=== PATIENT | male | born 1960 | race Two or more races ===

== ENCOUNTER 2017-04-09 04:08 | Emergency (ER) | payer MEDICARE, MEDICAID ==
[~2017-04-09] VITALS: Ht 167.6 cm; Wt 54.9 kg
[~2017-04-09 04:08] MED LIST: ALBUTEROL2.5 MG/3 M INH; AMBIEN; AMBIEN10 MG PO; AMBIEN5 MG; AMBIEN5 MG ORAL; AMBIEN5 MG PO; AVELOX400 MG ORAL; AZITHROMYCIN250 MG ORAL; BACTRIM-DS1 EA ORAL; CEPHALEXIN500 MG PO; CLARITIN10 MG; CLINDAMYCIN PHO30 GM TP; COLACE100 MG ORAL; DULCOLAX10 MG RC; HYDROCORTISONE28 G5 TP; LEVAQUIN500 MG PO; LORATADINE; LORATADINE10 M1 PO; NORCO 5-325 TA1 EACH ORAL; OMEPRAZOLE; PRILOSEC20 MG PO; PROAIR HFA8.5 GM INH; PROMETHAZINE-C118 M1 ORAL; PROTONIX40 MG ORAL; QUETIAPINE FUMA25 MG ORAL; RENAGEL; RENVELA800 MG PO; SENSIPAR; SENSIPAR30 MG ORAL; SENSIPAR30 MG PO; SENSIPAR60 MG; SEROQUEL; SEROQUEL100 MG PO; SUCRALFATE; SUCRALFATE1 GM; SUCRALFATE1 GM PO; TYLENOL650 MG/20. ORAL; UNOBMED; VITAMINS; ZANTAC150 MG ORAL; ZITHROMAX250 MG ORAL; ZOLPIDEM; ZYRTEC10 MG; [UNRECOGNIZED DRUG - OTHER] ORAL
[2017-04-09] MEDS ORDERED: Lidocaine 2% Visc 15ml soln ORAL ONE (04:15)
[2017-04-09] MEDS ORDERED: Famotidine 20 MG/ 2ML VIAL IVP ONE (04:15)
[2017-04-09] MEDS ORDERED: Dicyclomine HCl 10mg/5ml oral soln ORAL ONE (04:15)
[2017-04-09] MEDS ORDERED: Mylanta II UD 30ml ORAL ONE (04:15)
--- NOTE | 2017-04-09 04:18 | Emergency Room Report ---
History of Present Illness General Source: Patient Present Illness HPI 56 yo male with past medical history of end-stage renal disease, on dialysis Friday and Friday, last dialysis was completed yesterday, history of gastritis, hypertension p/w abdominal pain one day. Patient states pain started after eating, localized to gastric, radiates up towards chest with acidic taste in mouth, burning in nature, intermittent. No relieving or exacerbating factors. Patient states that he has had this pain before, and it feels like his gastritis pain Pt reports n/v, to episodes of nbnb vomiting, denies diarrhea Denies fever, chills. No hx of abdominal surgeries. Last endoscopy/colonoscopy was several years ago Last stress test was one year ago which was negative Allergies: Coded Allergies: PEANUT (Verified Allergy, Intermediate, Rash, 06/22/13) AVOCADO (Unverified Allergy, Unknown, 10/06/14) Dairy (Verified Allergy, Unknown, Rash, 12/15/13) Patient History Past Medical History: see triage record Past Surgical History: none Pertinent Family History: none Reviewed Nursing Documentation: PMH: Agreed, PSxH: Agreed Nursing Documentation-PMH Hx Cardiac Problems: No Hx Hypertension: Yes Hx Pacemaker: No Hx Asthma: Yes Hx COPD: Yes Hx Diabetes: No Hx Cancer: No Hx Gastrointestinal Problems: Yes - Gastritis Hx Dialysis: Yes Hx Neurological Problems: No Hx Cerebrovascular Accident: No Hx Seizures: No Hx Weakness: Yes Hx Fatigue: Yes Review of Systems All Other Systems: negative except mentioned in HPI Physical Exam Sp02 EP Interpretation: reviewed, normal General Appearance: normal inspection, well appearing, no apparent distress, alert, GCS 15, non-toxic Head: normocephalic, atraumatic Eyes: bilateral eye normal inspection, bilateral eye PERRL, bilateral eye EOMI ENT: normal ENT inspection, normal pharynx, normal voice, moist mucus membranes Neck: normal inspection, full range of motion, supple Respiratory: normal inspection, lungs clear, normal breath sounds, no respiratory distress, no retraction, no wheezing, speaking full sentences, chest symmetrical Cardiovascular #1: normal inspection, regular rate, rhythm, no edema, normal capillary refill Cardiovascular #2: 2+ radial (R), 2+ radial (L) Gastrointestinal: soft, non-distended, no guarding, other - Mild epigastric tenderness, no right upper quadrant tenderness, all other areas are nontender Genitourinary: no CVA tenderness Musculoskeletal: normal inspection, back normal, normal range of motion, non- tender Neurologic: normal inspection, alert, oriented x3, responsive, motor strength/ tone normal, sensory intact, normal gait, speech normal Psychiatric: normal inspection, judgement/insight normal, memory normal Skin: normal inspection, normal color, no rash, warm/dry, well hydrated, normal turgor Medical Decision Making Diagnostic Impression: Primary Impression: Abdominal pain Qualified Codes: R10.13 - Epigastric pain ER Course 56-year-old male with upper abdominal pain , history of gastritis Differential Diagnosis: Gastritis, gastroenteritis, cholecystitis, appendicitis, diverticulitis, SBO, mesenteric ischemia, cardiac, UTI/pyelo At this time abdomen is soft nontender, not likely to have acute intra- abdominal surgical pathology, will hold CT for now. Plan: Basic labs, ua, ekg Pepcid, maalox, pain control ER course: Patient has remained stable during ED stay. Pain improved. Repeat abdominal exam is nontender. Tolerating PO Disposition: Patient is to be discharged to home. Patient is instructed to follow up with their primary care doctor within 5 days. Patient instructed to follow up with a lot porter in 1 week Strict return precautions discussed with patient such as fever, chills, worsening/severe abdominal pain, nausea, vomiting, black or bloody stools, which may indicate severe illness. Patient verbalizes understanding and agrees with plan. Please note that this Emergency Department Report was dictated using [employer] surgery assistant technology software, occasionally this can lead to erroneous entry secondary to interpretation by the dictation equipment Laboratory Tests Test 04/09/17 04:15 White Blood Count 4.8 K/UL (4.8-10.8) Red Blood Count 3.80 M/UL (4.70-6.10) L Hemoglobin 12.0 G/DL (14.2-18.0) L Hematocrit 35.5 % (42.0-52.0) L Mean Corpuscular Volume 93 FL (80-99) Mean Corpuscular Hemoglobin 31.5 PG (27.0-31.0) H Mean Corpuscular Hemoglobin Concent 33.8 G/DL (32.0-36.0) Red Cell Distribution Width 11.1 % (11.6-14.8) L Platelet Count 158 K/UL (150-450) Mean Platelet Volume 5.3 FL (6.5-10.1) L Neutrophils (%) (Auto) 66.8 % (45.0-75.0) Lymphocytes (%) (Auto) 18.9 % (20.0-45.0) L Monocytes (%) (Auto) 8.6 % (1.0-10.0) Eosinophils (%) (Auto) 4.3 % (0.0-3.0) H Basophils (%) (Auto) 1.3 % (0.0-2.0) Sodium Level 137 mEQ/L (135-145) Potassium Level 4.7 mEQ/L (3.4-4.9) Chloride Level 95 mEQ/L (98-107) L Carbon Dioxide Level 26 mEQ/L (20-30) Anion Gap 16 (5-15) H Blood Urea Nitrogen 25 mg/dL (7-23) H Creatinine 7.4 mg/dL (0.7-1.2) H Estimate Glomerular Filtration Rate 7.7 mL/min (>60) Glucose Level 103 mg/dL (74-106) Calcium Level 9.7 mg/dL (8.6-10.2) Total Bilirubin 0.3 mg/dL (0.0-1.2) Aspartate Amino Transferase (AST) 26 U/L (5-40) Alanine Aminotransferase (ALT) 25 U/L (3-41) Alkaline Phosphatase 75 U/L (40-129) Troponin I < 0.30 ng/mL (<=0.30) Total Protein 8.0 g/dL (6.6-8.7) Albumin 4.3 g/dL (3.5-5.2) Globulin 3.7 g/dL Albumin/Globulin Ratio 1.1 (1.0-2.7) Lipase 112 U/L (< 60) H EKG Diagnostic Results Rate: normal Rhythm: NSR ST Segments: other - U wave ASA given to the pt in ED: No Rhythm Strip Diag. Results EP Interpretation: yes Rate: 60 Rhythm: NSR, no PVC's, no ectopy Disposition: HOME, SELF-CARE Condition: Improved Scripts Famotidine (PEPCID) 20 Mg Tablet 20 MG ORAL BEDTIME for 14 Days, #14 TAB 0 Refills Prov: Shannan Vieira M.D. 04/09/17 Patient Instructions: Abdominal Pain, Adult, Gastritis, Adult Shannan Vieira M.D. Apr 09, 2017 04:18
[2017-04-09 04:25] VITALS: BP 157/79
[2017-04-09 04:32] LABS: BASOPHILS % (AUTO) 1.3 % (0.0-2.0); EOSINOPHILS % (AUTO) 4.3 % (0.0-3.0); LYMPHOCYTES % (AUTO) 18.9 % (20.0-45.0); MEAN CORPUSCULAR HEMOGLOBIN 31.5 PG (27.0-31.0); MEAN CORPUSCULAR HGB CONC 33.8 G/DL (32.0-36.0); MEAN CORPUSCULAR VOLUME 93 FL (80-99); MEAN PLATELET VOLUME 5.3 FL (6.5-10.1); MONOCYTES % (AUTO) 8.6 % (1.0-10.0); NEUTROPHILS % (AUTO) 66.8 % (45.0-75.0); PLATELET COUNT 158 K/UL (150-450); RED CELL DISTRIBUTION WIDTH 11.1 % (11.6-14.8); WHITE BLOOD COUNT 4.8 K/UL (4.8-10.8)
[2017-04-09 04:43] LABS: ALBUMIN/GLOBULIN RATIO 1.1 (1.0-2.7); CALCIUM 9.7 mg/dL (8.6-10.2); CREATININE 7.4 mg/dL (0.7-1.2); GLOMERULAR FILTRATION RATE 7.7 mL/min (>60); POTASSIUM 4.7 mEQ/L (3.4-4.9)
[2017-04-09] MEDS ORDERED: Acetaminophen 500mg (ES) tab ORAL ONE (05:00)
[2017-04-09 05:03] LABS: TROPONIN I < 0.30 ng/mL (<=0.30)
[2017-04-09] MEDS ORDERED: PEPCID20 MG ORAL (05:15)
[2017-04-09 05:18] VITALS: BP 138/78
[2017-04-09 05:33] VITALS: BP 138/78
--- NOTE | 2017-04-09 16:27 | Cardiology Report ---
APPROVED REPORT EKG Measurement Heart [id number] Normal sinus rhythm Nonspecific ST abnormality Abnormal ECG
== END 2017-04-09 05:30 | disposition home or self-care (01) ==
LOC: EDBD 04:08 → EMR 04:19
DX: R10.13 Epigastric pain (principal); I12.0 Hypertensive chronic kidney disease with stage 5 chronic kidney disease or end stage renal disease; N18.6 End stage renal disease; Z99.2 Dependence on renal dialysis; Z91.010 Allergy to peanuts; Z91.011 Allergy to milk products; Z91.018 Allergy to other foods; J44.9 Chronic obstructive pulmonary disease, unspecified; R53.1 Weakness
CPT/HCPCS: 36415; 80053; 83690; 84484; 85025; 93005; 96374; 99284; S0028

== ENCOUNTER 2017-06-03 20:49 | Emergency (ER) | payer MEDICARE, MEDICAID ==
[~2017-06-03] VITALS: Ht 167.6 cm; Wt 59.0 kg
[~2017-06-03 20:49] MED LIST changes: +PEPCID20 MG ORAL
[2017-06-03 21:00] VITALS: BP 125/72
[2017-06-03] MEDS ORDERED: Acetaminophen 500mg (ES) tab ORAL ONE (21:00)
--- NOTE | 2017-06-03 21:02 | Emergency Room Report ---
History of Present Illness General Chief Complaint: Abdominal Pain Source: Patient Present Illness HPI Patient 56-year-old male presented after increased abdominal pain as well as back and neck pain. The patient prior history of end-stage renal disease and was last dialyzed today. Patient is followed by Dr. Matt Chaney. The patient was brought in by EMS after increased pain. Patient reported having some pain to his low abdomen. The patient denied vomiting. He reported pain to the upper back as well as to the trunk. Patient denies prior history of diabetes. Reportedly patient prior history of pancreatitis. Allergies: Coded Allergies: PEANUT (Verified Allergy, Intermediate, Rash, 06/22/13) AVOCADO (Unverified Allergy, Unknown, 10/06/14) Dairy (Verified Allergy, Unknown, Rash, 12/15/13) Patient History Past Medical History: see triage record, dialysis Reviewed Nursing Documentation: PMH: Agreed, PSxH: Agreed Nursing Documentation-PMH Hx Cardiac Problems: No Hx Hypertension: Yes Hx Pacemaker: No Hx Asthma: Yes Hx COPD: Yes Hx Diabetes: No Hx Cancer: No Hx Gastrointestinal Problems: Yes - Gastritis Hx Dialysis: Yes - ESRD Hx Neurological Problems: No Hx Cerebrovascular Accident: No Hx Seizures: No Hx Weakness: Yes Hx Fatigue: Yes Review of Systems All Other Systems: negative except mentioned in HPI Physical Exam Vital Signs Date Time Temp Pulse Resp B/P (MAP) Pulse Ox O2 Delivery O2 Flow Rate FiO2 06/03/17 20:44 97.5 98 16 126/70 100 Room Air Sp02 EP Interpretation: reviewed, normal General Appearance: normal inspection, well appearing, no apparent distress, alert, GCS 15 Head: atraumatic ENT: normal ENT inspection, hearing grossly normal, normal voice Neck: normal inspection, full range of motion, supple, no bony tend Respiratory: normal inspection, lungs clear, normal breath sounds, no respiratory distress, no retraction, no wheezing Cardiovascular #1: regular rate, rhythm, no edema Gastrointestinal: normal inspection, normal bowel sounds, non tender, soft, no guarding, no hernia Genitourinary: no CVA tenderness Musculoskeletal: normal inspection, back normal, normal range of motion Neurologic: normal inspection, alert, oriented x3, responsive, system safety engineer III-XII nml as tested, speech normal Psychiatric: normal inspection, judgement/insight normal, mood/affect normal Skin: normal inspection, normal color, no rash Medical Decision Making Diagnostic Impression: Primary Impression: Pancreatitis Additional Impression: ESRD on dialysis ER Course Patient presented for abdominal pain. Differential diagnoses included ischemic bowel, appendicitis, perforated viscus, abdominal aortic aneurysm, inferior myocardial infarction, viral gastroenteritis Because of complexity of patient's case laboratory testing and imaging studies were ordered. I laboratory testing and no for elevated lipase consistent with pancreatitis. Patient was noted to have prior history of end-stage renal disease. Chest x- ray one view interpreted by me showed bilateral lung scarring without definite infiltrate normal cardiac size. The patient given IV pain medications. EKG interpreted by me showed normal sinus rhythm at a rate of [address] or T wave changes. Patient is advised followup with his primary care physician in one to 2 days for reexamination.The patient is advised to follow up with primary care doctor in 1 -2 days. Patient is advised to return if any worsening condition or if any changes in status that are concerning. Labs Test 06/03/17 21:10 White Blood Count 5.4 K/UL (4.8-10.8) Red Blood Count 4.18 M/UL (4.70-6.10) Hemoglobin 12.6 G/DL (14.2-18.0) Hematocrit 39.4 % (42.0-52.0) Mean Corpuscular Volume 94 FL (80-99) Mean Corpuscular Hemoglobin 30.2 PG (27.0-31.0) Mean Corpuscular Hemoglobin Concent 32.0 G/DL (32.0-36.0) Red Cell Distribution Width 11.1 % (11.6-14.8) Platelet Count 177 K/UL (150-450) Mean Platelet Volume 5.1 FL (6.5-10.1) Neutrophils (%) (Auto) 71.5 % (45.0-75.0) Lymphocytes (%) (Auto) 15.9 % (20.0-45.0) Monocytes (%) (Auto) 6.7 % (1.0-10.0) Eosinophils (%) (Auto) 4.9 % (0.0-3.0) Basophils (%) (Auto) 1.1 % (0.0-2.0) Prothrombin Time 9.9 SEC (9.30-11.50) Prothromb Time International Ratio 0.9 (0.9-1.1) Activated Partial Thromboplast Time 25 SEC (23-33) Sodium Level 137 MMOL/L (136-145) Potassium Level 3.9 MMOL/L (3.5-5.1) Chloride Level 98 MMOL/L (98-107) Carbon Dioxide Level 29 MMOL/L (21-32) Anion Gap 10 mmol/L (5-15) Blood Urea Nitrogen 22 mg/dL (7-18) Creatinine 7.1 MG/DL (0.55-1.30) Estimat Glomerular Filtration Rate 8.1 mL/min (>60) Glucose Level 126 MG/DL (74-106) Calcium Level 9.5 MG/DL (8.5-10.1) Total Bilirubin 0.4 MG/DL (0.2-1.0) Aspartate Amino Transf (AST/SGOT) 22 U/L (15-37) Alanine Aminotransferase (ALT/SGPT) 33 U/L (12-78) Alkaline Phosphatase 76 U/L (46-116) Total Creatine Kinase 39 U/L (26-308) Creatine Kinase MB 1.3 NG/ML (0.0-3.6) Creatine Kinase MB Relative Index 3.3 Troponin I 0.003 ng/mL (0.000-0.056) Total Protein 8.4 G/DL (6.4-8.2) Albumin 4.1 G/DL (3.4-5.0) Globulin 4.3 g/dL Albumin/Globulin Ratio 1.0 (1.0-2.7) Lipase 534 U/L (73-393) Last Vital Signs Date Time Temp Pulse Resp B/P (MAP) Pulse Ox O2 Delivery O2 Flow Rate FiO2 06/03/17 20:44 97.5 98 16 126/70 100 Room Air Status: improved Disposition: HOME, SELF-CARE Condition: Stable Scripts Docusate Sodium* (COLACE*) 100 Mg Capsule 100 MG ORAL TWICE A DAY, #20 CAP Prov: Ignacio Marino 06/03/17 Hydrocodone Bit/Acetaminophen 5-325* (NORCO 5-325*) 1 Each Tablet 1 TAB ORAL Q6H Y for For Pain, #20 TAB 0 Refills Prov: Ignacio Marino 06/03/17 Ignacio Marino Jun 03, 2017 21:02
[2017-06-03 21:26] LABS: BASOPHILS % (AUTO) 1.1 % (0.0-2.0); EOSINOPHILS % (AUTO) 4.9 % (0.0-3.0); LYMPHOCYTES % (AUTO) 15.9 % (20.0-45.0); MEAN CORPUSCULAR HEMOGLOBIN 30.2 PG (27.0-31.0); MEAN CORPUSCULAR VOLUME 94 FL (80-99); MEAN PLATELET VOLUME 5.1 FL (6.5-10.1); MONOCYTES % (AUTO) 6.7 % (1.0-10.0); NEUTROPHILS % (AUTO) 71.5 % (45.0-75.0); PLATELET COUNT 177 K/UL (150-450); RED BLOOD COUNT 4.18 M/UL (4.70-6.10); RED CELL DISTRIBUTION WIDTH 11.1 % (11.6-14.8); WHITE BLOOD COUNT 5.4 K/UL (4.8-10.8)
[2017-06-03 21:36] LABS: INR 0.9 (0.9-1.1); PROTHROMBIN TIME 9.9 SEC (9.30-11.50)
[2017-06-03 21:47] LABS: ANION GAP 10 mmol/L (5-15); CALCIUM 9.5 MG/DL (8.5-10.1); CARBON DIOXIDE 29 MMOL/L (21-32); CHLORIDE 98 MMOL/L (98-107); CREATININE 7.1 MG/DL (0.55-1.30); GLOMERULAR FILTRATION RATE 8.1 mL/min (>60); POTASSIUM 3.9 MMOL/L (3.5-5.1); SODIUM 137 MMOL/L (136-145)
[2017-06-03 21:51] LABS: ALANINE AMINOTRANSFERASE 33 U/L (12-78); ASPARTATE AMINO TRANSFERASE 22 U/L (15-37); CKMB 1.3 NG/ML (0.0-3.6); LIPASE 534 U/L (73-393); TOTAL PROTEIN 8.4 G/DL (6.4-8.2)
[2017-06-03] MEDS ORDERED: Morphine Sulfate 4mg/ml Inj IVP ONE (22:00)
[2017-06-03 23:14] VITALS: BP 113/75
[2017-06-03] MEDS ORDERED: NORCO 5-325 TA1 EACH ORAL (23:16)
[2017-06-03] MEDS ORDERED: COLACE100 MG ORAL (23:16)
[2017-06-03 23:24] VITALS: BP 113/75
--- NOTE | 2017-06-04 11:42 | Diagnostic Imaging Report ---
Indication: PAIN Technique: One view of the chest Comparison: 01/21/2014 Findings: Bilateral basilar scarring is again demonstrated. Generalized mild interstitial prominence appears stable, likely chronic. No focal airspace consolidation. No effusions. Normal heart size. Impression: Bilateral chronic appearing parenchymal disease, stable since 2013. No definite acute process This agrees with the preliminary interpretation provided by the emergency room physician
--- NOTE | 2017-06-04 15:03 | Diagnostic Imaging Report ---
INDICATION: PAIN TECHNIQUE: No oral contrast, per emergency department physician request. No IV contrast, reason not stated. Spiral acquisitions obtained through the chest, abdomen, and pelvis Multiplanar reconstructions were generated. Total dose length product 952 mGycm. CTDIvol(s) 13.9 mGy. Radiation dose was minimized using automated exposure control COMPARISON: 10/25/[address] No comparison chest CT scans FINDINGS Chest: Interstitial septal thickening is demonstrated, with scattered areas in the upper lobes and more generalized in the lower lobes. Reticular, nodular, linear opacities at both lung bases likely represent areas of scarring. There is some associated calcification. Vague areas of groundglass opacity are seen scattered in the upper and lower lobes bilaterally. No focal airspace consolidation. No effusions. No definite congestion. No masses or nodules. Findings at the lung bases are similar to those seen on the visualized lung bases of the 2011 exam, but appears slightly more extensive currently. The heart size is normal. No pericardial effusion. No mediastinal or hilar mass or adenopathy. A venous stent is seen axillary vein. No axillary or chest wall mass or adenopathy. The thyroid is unremarkable. Abdomen pelvis: The appendix is normal. There is colonic diverticulosis. No evidence of diverticulitis. No small bowel distention. No free or loculated intraperitoneal air or fluid is evident. Lack of IV contrast limits assessment of the solid organs. The liver is grossly unremarkable. The gallbladder again demonstrates gallstones. No biliary ductal dilatation. The pancreas, spleen, adrenals are unremarkable as previously, kidneys are atrophic. However, there are currently replaced by innumerable cysts. A hyperdense cyst is seen in the interpolar region on the left. This measures 88 Hounsfield unit attenuation. Calcifications are seen in the kidneys bilaterally. These are more likely dystrophic parenchymal calcifications than calyceal. No hydronephrosis. No pelvic mass or adenopathy. No retroperitoneal or mesenteric mass or adenopathy There are mild degenerative of the lumbosacral junction, progressive since the 2011 exam. IMPRESSION Chest: Pulmonary mostly interstitial disease, as described. At the lung bases, this is very similar to that visualized at the lung bases on prior abdomen pelvis CT of 2011, although slightly more extensive, and most likely represents chronic interstitial fibrotic changes, otherwise nonspecific as regards etiology. Superimposed acute process impossible to confidently exclude Left axillary venous stent Abdomen pelvis: No acute abnormality Cholelithiasis Diverticulosis Renal atrophy. 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 This was not evident on prior 2011 exam but was described on abdomen ultrasound of 12/23/2013 Bilateral renal calcifications, most likely dystrophic Degenerative spondylosis This agrees with the preliminary interpretation provided overnight by [facility]erad[facility] service. The CT scanner at [facility] is accredited by the [employer] and the scans are performed using protocols designed to limit radiation exposure to as low as reasonably achievable to attain images of sufficient resolution adequate for diagnostic evaluation.
--- NOTE | 2017-06-04 16:24 | Cardiology Report ---
APPROVED REPORT EKG Measurement Heart [id number] Normal sinus rhythm Normal ECG
== END 2017-06-03 23:25 | disposition home or self-care (01) ==
LOC: EDBD 20:49 → EMR 21:25
DX: K85.90 Acute pancreatitis without necrosis or infection, unspecified (principal); I12.0 Hypertensive chronic kidney disease with stage 5 chronic kidney disease or end stage renal disease; N18.6 End stage renal disease; Z99.2 Dependence on renal dialysis; J44.9 Chronic obstructive pulmonary disease, unspecified; Z91.011 Allergy to milk products; Z91.010 Allergy to peanuts; Z91.018 Allergy to other foods; R07.9 Chest pain, unspecified; K80.20 Calculus of gallbladder without cholecystitis without obstruction; K57.90 Diverticulosis of intestine, part unspecified, without perforation or abscess without bleeding; N28.1 Cyst of kidney, acquired; M47.9 Spondylosis, unspecified
CPT/HCPCS: 36415; 71010; 71250; 74176; 80053; 82550; 82553; 83690; 84484; 85025; 85610; 85730; 93005; 96374; 96375; 99284; J2270; S0028

== ENCOUNTER 2017-06-07 20:22 | Emergency (ER) | payer MEDICARE, MEDICAID ==
[~2017-06-07] VITALS: Ht 167.6 cm; Wt 61.2 kg
[2017-06-07 20:40] VITALS: BP 134/87
[2017-06-07] MEDS ORDERED: Morphine Sulfate 2mg/ml Inj IVP ONE (20:45)
--- NOTE | 2017-06-07 21:00 | Emergency Room Report ---
History of Present Illness General Chief Complaint: Pain Source: Patient Present Illness HPI 56-year-old male, walking, presents with nausea, neck pain, and right leg pain for 2 weeks. Patient was here 4 days ago for similar complaints. Labs were concerning for elevated lipase but CT did not show acute appendicitis. Chest x-ray and CT at that time showed chronic parenchymal disease but no acute findings to explain patient's complaints. Patient stated that he spoke to primary care doctor Dr. Chaney, but was unable to make appointment for followup. Patient is also a dialysis patient. He denies fevers, chills, diarrhea, recent travel, sick contacts. I spoke to patient's primary care doctor, Dr. Chaney, who states that patient has a history of possible schizophrenia, severe anxiety, and he has been trying to set patient up with outpatient physical therapy. Dr. Chaney suggested discharged with lidocaine patch and Robaxin. He will follow the patient as an outpatient. Allergies: Coded Allergies: PEANUT (Verified Allergy, Intermediate, Rash, 06/22/13) AVOCADO (Unverified Allergy, Unknown, 10/06/14) Dairy (Verified Allergy, Unknown, Rash, 12/15/13) Patient History Past Medical History: dialysis Past Surgical History: none Pertinent Family History: none Social History: Denies: smoking, alcohol use, drug use Immunizations: UTD Reviewed Nursing Documentation: PMH: Agreed, PSxH: Agreed Nursing Documentation-PMH Hx Cardiac Problems: No Hx Pacemaker: No Hx Asthma: Yes Hx COPD: Yes Hx Diabetes: No Hx Cancer: No Hx Gastrointestinal Problems: Yes - Gastritis Hx Dialysis: Yes - /Th/Sat. Hx Neurological Problems: No Hx Cerebrovascular Accident: No Hx Seizures: No Hx Weakness: Yes Hx Fatigue: Yes Review of Systems All Other Systems: negative except mentioned in HPI Physical Exam Vital Signs Date Time Temp Pulse Resp B/P (MAP) Pulse Ox O2 Delivery O2 Flow Rate FiO2 06/07/17 20:27 98.1 103 18 157/78 96 Room Air Sp02 EP Interpretation: reviewed, normal General Appearance: normal inspection, well appearing, no apparent distress, alert, GCS 15, non-toxic, other - Very anxious appearing Head: normocephalic, atraumatic Eyes: bilateral eye PERRL, bilateral eye EOMI ENT: normal ENT inspection, hearing grossly normal, normal voice Neck: normal inspection, full range of motion, supple, no bony tend Respiratory: normal inspection, lungs clear, normal breath sounds, no respiratory distress, no retraction, no wheezing Cardiovascular #1: regular rate, rhythm, no edema Gastrointestinal: normal inspection, normal bowel sounds, non tender, soft, no guarding, no hernia Genitourinary: no CVA tenderness Musculoskeletal: normal inspection, back normal, normal range of motion, Galdino' s Sign negative, other - SLE + on right side. + ttp right lower back and buttock Neurologic: normal inspection, alert, oriented x3, responsive, quality assurance clerk III-XII nml as tested, speech normal Psychiatric: normal inspection, judgement/insight normal, mood/affect normal Skin: normal inspection, normal color, no rash Medical Decision Making Diagnostic Impression: Primary Impression: Right low back pain Qualified Codes: M54.41 - Lumbago with sciatica, right side; G89.29 - Other chronic pain Additional Impressions: Nausea Right leg pain ER Course 56-year-old male with nausea, neck pain, right leg pain. Vital signs stable. Afebrile. Abdomen nonfocal and serial exam. Workup includes laboratory analysis, pain control, nausea control. Patient's abdomen remains nonfocal and serial abdominal exam. Unlikely acute bacterial or surgical process given normal CAT scan recently. recent CAT scan shows spondylosis and arthritis of the lumbar sacral spine. Right lower back buttock and right leg pain likely sciatica. Patient to followup with Dr. Holloway as an outpatient, I prescribed Robaxin and Lidoderm patch Patient is to be discharged to home. Patient is instructed to follow up with their primary care doctor within 5 days. Strict return precautions discussed with patient such as fever, chills, worsening/severe pain, nausea, vomiting, which may indicate severe illness. Patient verbalizes understanding and agrees with plan. Please note that this Emergency Department Report was dictated using [id number] biochemist technology software, occasionally this can lead to erroneous entry secondary to interpretation by the dictation equipment Last Vital Signs Date Time Temp Pulse Resp B/P (MAP) Pulse Ox O2 Delivery O2 Flow Rate FiO2 06/07/17 20:40 98.1 99 18 134/87 100 Room Air Status: improved Disposition: HOME, SELF-CARE Scripts Lidocaine (Lidoderm) 1 Each Adh..patch 1 PATCH TOPIC DAILY for 7 Days, #14 PATCH 0 Refills Patch(es) may remain in place for up to 12 hours in any 24-hour period. Prov: VALENTINA WONG M.D. 06/07/17 Methocarbamol* (ROBAXIN*) 500 Mg Tablet 500 MG PO TID for 7 Days, #30 TAB 0 Refills Prov: VALENTINA WONG M.D. 06/07/17 VALENTINA WONG M.D. Jun 07, 2017 21:00
[2017-06-07 21:15] LABS: EOSINOPHILS % (AUTO) 2.3 % (0.0-3.0); LYMPHOCYTES % (AUTO) 13.7 % (20.0-45.0); MEAN CORPUSCULAR HEMOGLOBIN 31.2 PG (27.0-31.0); MEAN CORPUSCULAR VOLUME 94 FL (80-99); MEAN PLATELET VOLUME 4.9 FL (6.5-10.1); MONOCYTES % (AUTO) 7.5 % (1.0-10.0); NEUTROPHILS % (AUTO) 75.5 % (45.0-75.0); PLATELET COUNT 150 K/UL (150-450); RED BLOOD COUNT 3.95 M/UL (4.70-6.10); RED CELL DISTRIBUTION WIDTH 10.9 % (11.6-14.8); WHITE BLOOD COUNT 4.6 K/UL (4.8-10.8)
[2017-06-07] MEDS ORDERED: ROBAXIN500 MG PO (21:18)
[2017-06-07] MEDS ORDERED: LIDODERM700 M1 TOPIC (21:18)
[2017-06-07 21:39] LABS: ANION GAP 8 mmol/L (5-15); CALCIUM 9.8 MG/DL (8.5-10.1); CARBON DIOXIDE 32 MMOL/L (21-32); CHLORIDE 98 MMOL/L (98-107); GLOMERULAR FILTRATION RATE 9.8 mL/min (>60); POTASSIUM 3.5 MMOL/L (3.5-5.1); SODIUM 138 MMOL/L (136-145)
[2017-06-07 21:44] LABS: ALANINE AMINOTRANSFERASE 28 U/L (12-78); ALBUMIN/GLOBULIN RATIO 0.9 (1.0-2.7); ASPARTATE AMINO TRANSFERASE 22 U/L (15-37); LIPASE 310 U/L (73-393); TOTAL PROTEIN 8.7 G/DL (6.4-8.2)
[2017-06-07 22:25] VITALS: BP 117/70
[2017-06-07 22:28] VITALS: BP 117/70
== END 2017-06-07 22:28 | disposition home or self-care (01) ==
LOC: EMR 21:16
DX: M54.5 Low back pain (principal); M54.2 Cervicalgia; M79.604 Pain in right leg; Z91.010 Allergy to peanuts; Z91.018 Allergy to other foods; J44.9 Chronic obstructive pulmonary disease, unspecified
CPT/HCPCS: 36415; 80053; 83690; 85025; 96374; 96375; 99284; J2270; J2405

== ENCOUNTER 2017-06-10 20:38 | Inpatient (IN) | payer MEDICARE, MEDICAID ==
[~2017-06-10] VITALS: Ht 170.2 cm; Wt 57.6 kg
[~2017-06-10 20:38] MED LIST changes: +LIDODERM700 M1 TOPIC; +ROBAXIN500 MG PO
[2017-06-10 21:00] VITALS: BP 168/89
--- NOTE | 2017-06-10 21:08 | Emergency Room Report ---
History of Present Illness General Chief Complaint: Chest Pain Source: Patient Present Illness HPI The patient presents with chest pressure. It was worse during dialysis. He felt pressure also in his upper abdomen at that time. His dialysis was afternoon. He got dizzy also during dialysis and afterwards. He did not take any medication for the chest pressure. He rates it as a 5/10 at this time. He had a slight fever during the night last week. He denies dyspnea. The patient is also complaining about pain in his right lower leg radiating to his back. He's been putting creams on it. He was seen here at that time. He was also given pills and is uncertain whether he has been taking the pills for pain and muscle relaxation. He also saw his doctor for the same problem and states he was not examined but given referral for physical therapy. The patient complains of constipation. He makes a small amount of urine in the morning. There's no dysuria. The patient was nauseated during dialysis. He vomited one time last night. There is no coffee grounds and there's been no melena. Allergies: Coded Allergies: PEANUT (Verified Allergy, Intermediate, Rash, 06/10/17) AVOCADO (Unverified Allergy, Unknown, 06/10/17) Dairy (Verified Allergy, Unknown, Rash, 06/10/17) Patient History Past Medical History: see triage record Past Surgical History: other - shunt Social History: Denies: smoking, alcohol use, drug use Social History Narrative from home Reviewed Nursing Documentation: PMH: Agreed, PSxH: Agreed Nursing Documentation-PMH Hx Cardiac Problems: No Hx Pacemaker: No Hx Asthma: Yes Hx COPD: Yes Hx Diabetes: No Hx Cancer: No Hx Gastrointestinal Problems: Yes - Gastritis Hx Dialysis: Yes - Tues/Thurs/Sat. Hx Neurological Problems: No Hx Cerebrovascular Accident: No Hx Seizures: No Hx Weakness: Yes Hx Fatigue: Yes Physical Exam Vital Signs Date Time Temp Pulse Resp B/P (MAP) Pulse Ox O2 Delivery O2 Flow Rate FiO2 06/10/17 20:47 98.1 96 16 168/89 98 Room Air Sp02 EP Interpretation: reviewed, normal General Appearance: well appearing, no apparent distress, GCS 15 Head: normocephalic Eyes: bilateral eye normal inspection ENT: moist mucus membranes Neck: supple Respiratory: lungs clear, normal breath sounds Cardiovascular #1: other - Fistula left upper arm Cardiovascular #2: 2+ radial (R) Gastrointestinal: normal inspection, normal bowel sounds, non tender, no mass, non-distended Musculoskeletal: back normal, gait/station normal, normal range of motion Neurologic: alert, oriented x3, motor strength/tone normal, DTRs symmetric, sensory intact Psychiatric: mood/affect normal Skin: other - Vesicula rash right S1 dermatome. Medical Decision Making Diagnostic Impression: Primary Impression: Chest pain Qualified Codes: R07.9 - Chest pain, unspecified Additional Impressions: Shingles Qualified Codes: B02.8 - Zoster with other complications ESRD on dialysis ER Course This is a dialysis patient presents complaining of chest pressure. Differential includes acute myocardial infarction, congestive heart failure, pulmonary embolus amongst others. Evaluation will be with EKG, chest x-ray and labs. The patient also has a rash of shingles on his right leg. He'll be treated with pain medicine for this, aspirin for the chest pressure. EKG without injury. CXR with chronic interstitial congestion and scarring. Labs with ESRD and elevated BNP. Acyclovir given. Pain better with treatment. Patient needs repeated troponins and continued cardiac observation. Admit telemetry Dr. Jiang. Laboratory Tests Test 06/10/17 21:20 06/11/17 07:50 White Blood Count 4.1 K/UL (4.8-10.8) L Red Blood Count 3.36 M/UL (4.70-6.10) L Hemoglobin 10.5 G/DL (14.2-18.0) L Hematocrit 32.2 % (42.0-52.0) L Mean Corpuscular Volume 96 FL (80-99) Mean Corpuscular Hemoglobin 31.2 PG (27.0-31.0) H Mean Corpuscular Hemoglobin Concent 32.5 G/DL (32.0-36.0) Red Cell Distribution Width 11.0 % (11.6-14.8) L Platelet Count 142 K/UL (150-450) L Mean Platelet Volume 5.5 FL (6.5-10.1) L Neutrophils (%) (Auto) 72.7 % (45.0-75.0) Lymphocytes (%) (Auto) 14.5 % (20.0-45.0) L Monocytes (%) (Auto) 7.6 % (1.0-10.0) Eosinophils (%) (Auto) 4.0 % (0.0-3.0) H Basophils (%) (Auto) 1.1 % (0.0-2.0) Prothrombin Time 10.1 SEC (9.30-11.50) Prothrombin Time INR 1.0 (0.9-1.1) PTT 27 SEC (23-33) Sodium Level 139 MMOL/L (136-145) Potassium Level 3.8 MMOL/L (3.5-5.1) Chloride Level 98 MMOL/L (98-107) Carbon Dioxide Level 30 MMOL/L (21-32) Anion Gap 11 mmol/L (5-15) Blood Urea Nitrogen 17 mg/dL (7-18) Creatinine 7.2 MG/DL (0.55-1.30) H Estimate Glomerular Filtration Rate 8.0 mL/min (>60) Glucose Level 136 MG/DL (74-106) H Calcium Level 9.0 MG/DL (8.5-10.1) Total Bilirubin 0.4 MG/DL (0.2-1.0) Aspartate Amino Transferase (AST) 20 U/L (15-37) Alanine Aminotransferase (ALT) 29 U/L (12-78) Alkaline Phosphatase 67 U/L (46-116) Total Creatine Kinase 30 U/L (26-308) Troponin I 0.011 ng/mL (0.000-0.056) 0.015 ng/mL (0.000-0.056) Pro-B-Type Natriuretic Peptide 2229 pg/mL (0-125) H Total Protein 8.0 G/DL (6.4-8.2) Albumin 3.6 G/DL (3.4-5.0) Globulin 4.4 g/dL Albumin/Globulin Ratio 0.8 (1.0-2.7) L EKG Diagnostic Results Rate: normal Rhythm: NSR ST Segments: no acute changes Rhythm Strip Diag. Results EP Interpretation: yes Rhythm: NSR, no PVC's, no ectopy Chest X-Ray Diagnostic Results Chest X-Ray Diagnostic Results : Chest X-Ray Ordered: Yes Indication: Chest Pain Interpretation: no effusion, no pneumothorax, other - chronic scarring and inc roland Impression: Other Electronically Signed by: Harrison Sparks MD Status: improved Disposition: ADMITTED INPATIENT Condition: Serious Scripts Gabapentin (Neurontin) 300 Mg Capsule 300 MG ORAL BEDTIME for 7 Days, #7 CAP 0 Refills Prov: EDINSON JIANG 06/11/17 Acyclovir* (ZOVIRAX*) 800 Mg Tablet 800 MG ORAL Q12HR for 7 Days, #14 TAB Prov: EDINSON JIANG 06/11/17 Harrison Sparks M.D. Jun 10, 2017 21:08
[2017-06-10] MEDS ORDERED: Aspirin Baby 81mg ORAL ONE (21:15)
[2017-06-10] MEDS ORDERED: Morphine Sulfate 4mg/ml Inj IVP ONE (21:15)
[2017-06-10 21:47] LABS: BASOPHILS % (AUTO) 1.1 % (0.0-2.0); LYMPHOCYTES % (AUTO) 14.5 % (20.0-45.0); MEAN CORPUSCULAR HEMOGLOBIN 31.2 PG (27.0-31.0); MEAN CORPUSCULAR HGB CONC 32.5 G/DL (32.0-36.0); MEAN CORPUSCULAR VOLUME 96 FL (80-99); MEAN PLATELET VOLUME 5.5 FL (6.5-10.1); MONOCYTES % (AUTO) 7.6 % (1.0-10.0); NEUTROPHILS % (AUTO) 72.7 % (45.0-75.0); PLATELET COUNT 142 K/UL (150-450); RED BLOOD COUNT 3.36 M/UL (4.70-6.10); WHITE BLOOD COUNT 4.1 K/UL (4.8-10.8)
[2017-06-10 21:53] LABS: PROTHROMBIN TIME 10.1 SEC (9.30-11.50)
[2017-06-10 21:57] LABS: ANION GAP 11 mmol/L (5-15); CARBON DIOXIDE 30 MMOL/L (21-32); CHLORIDE 98 MMOL/L (98-107); CREATININE 7.2 MG/DL (0.55-1.30); POTASSIUM 3.8 MMOL/L (3.5-5.1); SODIUM 139 MMOL/L (136-145)
[2017-06-10 22:08] LABS: ALANINE AMINOTRANSFERASE 29 U/L (12-78); ALBUMIN/GLOBULIN RATIO 0.8 (1.0-2.7); ASPARTATE AMINO TRANSFERASE 20 U/L (15-37)
[2017-06-10 23:00] VITALS: BP 136/76
[2017-06-11] VITALS: BP 138/77
[2017-06-11 02:00] VITALS: BP 123/74
[2017-06-11 03:59] VITALS: BP 114/72
[2017-06-11] MEDS ORDERED: Zolpidem 5mg tab ORAL PRN (06:30)
[2017-06-11] MEDS ORDERED: Miralax 17gm pkt ORAL PRN (06:30)
[2017-06-11] MEDS ORDERED: LORazepam 1mg tab ORAL PRN (06:30)
[2017-06-11] MEDS ORDERED: Albuterol 90mcg Inhaler 8gm INH PRN (06:30)
[2017-06-11] MEDS ORDERED: LORazepam Inj 2mg/ml 1ml IV ONE (06:30)
[2017-06-11 08:00] VITALS: BP 147/83
[2017-06-11] MEDS: Sucralfate 1gm tab ORAL SCH ×2 (08:06→15:41)
[2017-06-11] MEDS: Docusate 100mg cap ORAL SCH ×2 (08:06→18:07)
[2017-06-11] MEDS ORDERED: Sensipar 30mg Tab ORAL SCH (09:00)
[2017-06-11] MEDS ORDERED: Aspirin Baby 81mg ORAL SCH (09:00)
[2017-06-11] MEDS: Methocarbamol 500mg tab ORAL SCH ×2 (09:26→15:42)
[2017-06-11] MEDS ORDERED: Norco 5mg/325mg tab ORAL PRN (10:00)
[2017-06-11] MEDS ORDERED: Norco 10mg/325mg tab ORAL PRN (10:00)
--- NOTE | 2017-06-11 11:10 | Diagnostic Imaging Report ---
Indication: Chest pain Technique: One view of the chest Comparison: 06/03/2017 Findings: Bilateral perihilar linear opacities are again demonstrated, likely reflect scarring. No definite acute infiltrates, effusions, or congestion. Normal heart size. Left axillary venous stent is again demonstrated Impression: Chronic changes as described. No acute abnormality.
[2017-06-11 12:00] VITALS: BP 114/70
[2017-06-11] MEDS ORDERED: Heparin 5000 units/ml inj SUBQ SCH (13:30)
--- NOTE | 2017-06-11 13:46 | Diagnostic Imaging Report ---
Indication: PAIN Technique: Only localizer and sagittal T1 weighted images could be obtained. Patient did not wish to continue due to claustrophobia Comparison: None. Reference is made to a chest abdomen pelvis CT scan of 06/03/2017 Findings: Exam is extremely limited. Essentially only a single sagittal T1 weighted sequence is available. There is a small focus of high marrow signal in the anterior superior L2 vertebral body which probably represents a hemangioma. There is a small 6 mm diameter focus of low signal and anterior superior L3 vertebral body. Prior CT scan demonstrated a very questionable area of slight sclerosis in the same area. The remaining marrow signal is normal. The conus medullaris terminates at the L1-2 level. There is very mild, 1-2 mm, retrolisthesis of L5 on S1. The remainder of the bony alignment is normal. The vertebral body heights are preserved. No definite significant disc bulge or protrusion. There is slight degenerative disc narrowing at L5-S1 and slight associated endplate irregularity. The neural foramina appear grossly preserved. Impression: Very limited exam, as described, due to inability to obtain more than a single sequence Nonspecific 6 mm low signal focus in the L3 vertebral body. Additional sequences and postcontrast images recommended to better characterize, if at all possible Incidental finding presumed L2 vertebral body small hemangioma L5-S1 mild degenerative changes Other findings as noted
[2017-06-11 16:00] VITALS: BP 119/75
--- NOTE | 2017-06-11 17:07 | Diagnostic Imaging Report ---
Indication: PAIN Technique: 4 views of the lumbar spine Comparison: None Findings:There is degenerative disc narrowing at L5-S1. The remaining disc spaces are preserved. The vertebral body heights are preserved. No evidence of acute fracture. No dislocations. The facet joint spaces are preserved. The pedicles are intact. Sacral arches are preserved. Sacroiliac joint spaces are preserved. The stranding soft tissues are unremarkable Impression:Mild degenerative changes, as described No acute bony trauma
[2017-06-11] MEDS ORDERED: ACYCLOVIR800 MG ORAL (17:40)
[2017-06-11] MEDS ORDERED: NEURONTIN300 MG ORAL (17:40)
[2017-06-11] MEDS ORDERED: Bisacodyl EC 5mg tab ORAL ONE (18:00)
[2017-06-11] MEDS ORDERED: Tubing IV Secondary IV ONE (19:29)
[2017-06-11] MEDS ORDERED: NS 500ML ONE (19:29)
[2017-06-11] MEDS ORDERED: Tubing Blood Filter IV ONE (19:29)
--- NOTE | 2017-06-11 23:01 | History and Physical Report ---
DATE OF ADMISSION: 06/10/2017 PERTINENT HISTORY: The patient presents with leg pain, sciatica, abdominal pain, herpes zoster. HISTORY OF PRESENT ILLNESS: The patient is a 56-year-old man with end-stage renal disease on dialysis and psychiatric disorder likely schizophrenia. He presents with leg pain and a rash consistent with herpes zoster. He also has chest pain, abdominal discomfort, generalized malaise, generalized aching. He has had several emergency room visits. He has had prior a history of bronchitis which resolved. There is mild hyperparathyroidism. PAST SURGICAL HISTORY: AV fistula, left arm. HOME MEDICATIONS: Include: 1. Tylenol. 2. Albuterol inhaler as needed. 3. Cinacalcet. 4. Seroquel. 5. Protonix. 6. Carafate. 7. He was recently in the emergency room got a prescription for [place] and Robaxin. HABITS: He is a nondrinker and nonsmoker. No use of illicit drugs. SOCIAL HISTORY: He is single. Lives with brother. SYSTEM REVIEW: HEAD EYES, EARS, NOSE, THROAT: Vision and hearing is good. ENDOCRINE: No known diabetes or thyroid disease PULMONARY: No asthma or TB. He has had bronchitis in the past. CARDIAC: No definite angina, AR, hypertension, or arrhythmias. GASTROINTESTINAL: He has had gastritis and has been on antiulcer regimen. GENITOURINARY: No dysuria, hematuria, or kidney stones. NEUROLOGIC: No CVA, syncope, or seizures. PHYSICAL EXAMINATION: GENERAL: The patient is alert and well-developed man, in no acute distress. VITAL SIGNS: Temperature 97.7, pulse 76, respirations 19, blood pressure 114/78. HEAD EYES, EARS, NOSE, THROAT: Sclerae are nonicteric. Ocular motions intact in all directions. Oral mucosa moist. NECK: No adenopathy or thyroid enlargement. LUNGS: Clear. HEART: Regular rhythm. No murmur. ABDOMEN: Soft without organomegaly or masses. EXTREMITIES: No edema, cyanosis, or clubbing. Behind the right calf, two small areas less than a centimeter of healing hyperpigmented lesions that look like healing herpes zoster. NEUROLOGIC: He is alert and oriented. Cranial nerves are intact. BACK: No focal tenderness. IMPRESSION: 1. Herpes zoster. 2. Atypical chest pain. Troponins are borderline at 0.011 and 0.015 likely due to his renal disease. 3. End-stage renal disease. 4. Anxiety and history of psychiatric disorder. 5. Sciatica. He refused MRI but he does have some diskogenic disease noted on plain films. PLAN: I have instructed the patient regarding his care and needs outpatient dialysis, outpatient physical therapy. His workup is stable and I am discharging him. Final diagnoses on my discharge summary. Matt Chaney M.D. DR: Lauren JOB#: [id number] CC:
--- NOTE | 2017-06-12 04:15 | Discharge Summary ---
DATE OF ADMISSION: 06/10/2017 DATE OF DISCHARGE: 06/11/2017 PERTINENT HISTORY: The patient presents with leg pain, chest pain, generalized malaise. PERTINENT PHYSICAL FINDINGS: See my dictated History and Physical, no changes. COURSE IN THE HOSPITAL: Serial troponins were borderline, consistent with his renal disease. There is no evidence of ischemia. His physical exam remained stable and he was discharged home in stable condition. FINAL DIAGNOSES: 1. Herpes zoster involving the right leg. 2. Sciatica with some discogenic disease noted on plain films and refusal to have an MRI due to claustrophobia. 3. Anxiety disorder and likely schizoaffective disorder. 4. End-stage renal disease. 5. History of gastritis longstanding. DISCHARGE DISPOSITION: Home on a renal diet. MEDICATIONS: Per the discharge medication list. FOLLOWUP: Follow up by Dr. Chaney. He is encouraged to get outpatient physical therapy, which has already been set up. Matt Chaney M.D. DR: QUAN JOB#: [id number] CC:
--- NOTE | 2017-06-18 17:08 | Cardiology Report ---
APPROVED REPORT EKG Measurement Heart [id number] MD [id number] Normal sinus rhythm Normal ECG
== END 2017-06-11 19:30 | disposition home or self-care (01) | DRG 595 ==
LOC: EMR 21:00 → 2W 23:30 → EDBEDREQ 06-11 01:21
DX: B02.9 Zoster without complications (principal); N18.6 End stage renal disease; K59.00 Constipation, unspecified; M54.30 Sciatica, unspecified side; R07.89 Other chest pain; Z99.2 Dependence on renal dialysis; F40.240 Claustrophobia; E21.3 Hyperparathyroidism, unspecified; F20.9 Schizophrenia, unspecified; Z53.29 Procedure and treatment not carried out because of patient's decision for other reasons
CPT/HCPCS: 36415; 71010; 72114; 72148; 80053; 82550; 83880; 84484; 85025; 85610; 85730; 87081; 93005; 99285; G0378; J2405

== ENCOUNTER 2017-11-08 01:25 | Emergency (ER) | payer MEDICARE, MEDICAID ==
[~2017-11-08] VITALS: Ht 170.2 cm; Wt 58.1 kg
[~2017-11-08 01:25] MED LIST changes: +ACYCLOVIR800 MG ORAL; +NEURONTIN300 MG ORAL
[2017-11-08 02:02] VITALS: BP 151/82
[2017-11-08 02:06] LABS: EOSINOPHILS % (AUTO) 3.5 % (0.0-3.0); HEMATOCRIT 31.2 % (42.0-52.0); HEMOGLOBIN 11.4 G/DL (14.2-18.0); LYMPHOCYTES % (AUTO) 10.7 % (20.0-45.0); MEAN CORPUSCULAR VOLUME 90 FL (80-99); MONOCYTES % (AUTO) 8.7 % (1.0-10.0); NEUTROPHILS % (AUTO) 76.1 % (45.0-75.0); PLATELET COUNT 133 K/UL (150-450); RED BLOOD COUNT 3.45 M/UL (4.70-6.10); RED CELL DISTRIBUTION WIDTH 11.6 % (11.6-14.8); WHITE BLOOD COUNT 5.9 K/UL (4.8-10.8)
[2017-11-08 02:15] LABS: ANION GAP 11 mmol/L (5-15); BLOOD UREA NITROGEN 26 mg/dL (7-18); CALCIUM 9.2 MG/DL (8.5-10.1); CARBON DIOXIDE 28 MMOL/L (21-32); CHLORIDE 100 MMOL/L (98-107); CREATININE 8.7 MG/DL (0.55-1.30); POTASSIUM 4.4 MMOL/L (3.5-5.1); SODIUM 139 MMOL/L (136-145)
[2017-11-08] MEDS ORDERED: guaiFENesin 100mg/5ml Liq ud ORAL ONE (02:15)
[2017-11-08 02:20] LABS: ALANINE AMINOTRANSFERASE 23 U/L (12-78); ALBUMIN 3.5 G/DL (3.4-5.0); ALBUMIN/GLOBULIN RATIO 0.8 (1.0-2.7); ALKALINE PHOSPHATASE 67 U/L (46-116); ASPARTATE AMINO TRANSFERASE 16 U/L (15-37); BILIRUBIN,TOTAL 0.5 MG/DL (0.2-1.0)
[2017-11-08] MEDS ORDERED: ADULT WAL-100 MG/5 M ORAL (02:27)
[2017-11-08 02:34] VITALS: BP 151/82
[2017-11-08] MEDS ORDERED: BACTRIM DS TAB1 EAC1 ORAL (02:37)
[2017-11-08] MEDS ORDERED: AMOXICILLI250 MG/5 M ORAL (02:40)
--- NOTE | 2017-11-13 01:06 | Emergency Room Report ---
History of Present Illness General Chief Complaint: Flu Like Symptoms Source: Medical Record Present Illness HPI Patient 57-year-old male who presented after increased cough and congestion. Patient had prior history of end-stage renal disease and had missed dialysis. He is normally dialyzed Friday and Friday. Patient reported having increased cough. He denies any fever. He had not been vomiting.The patient stated he was scheduled for dialysis tomorrow. Allergies: Coded Allergies: PEANUT (Verified Allergy, Intermediate, Rash, 06/10/17) AVOCADO (Unverified Allergy, Unknown, 06/10/17) Dairy (Verified Allergy, Unknown, Rash, 06/10/17) Patient History Past Medical History: see triage record Reviewed Nursing Documentation: PMH: Agreed; PSxH: Agreed Nursing Documentation-PMH Hx Cardiac Problems: Yes Hx Pacemaker: No Hx Asthma: Yes Hx COPD: Yes Hx Diabetes: No Hx Cancer: No Hx Gastrointestinal Problems: Yes - Pancreatitis Hx Dialysis: Yes - //Fri. Hx Neurological Problems: No Hx Cerebrovascular Accident: No Hx Seizures: No Hx Weakness: Yes Hx Fatigue: Yes Review of Systems All Other Systems: negative except mentioned in HPI Physical Exam Sp02 EP Interpretation: reviewed, normal General Appearance: normal inspection, well appearing, no apparent distress, alert Head: atraumatic ENT: normal ENT inspection, hearing grossly normal, normal voice Neck: normal inspection, full range of motion, supple, no bony tend Respiratory: normal inspection, lungs clear, normal breath sounds, no respiratory distress, no retraction, no wheezing Cardiovascular #1: regular rate, rhythm, no edema Gastrointestinal: normal inspection, normal bowel sounds, non tender, soft, no guarding, no hernia Genitourinary: no CVA tenderness Musculoskeletal: normal inspection, back normal, normal range of motion Neurologic: normal inspection, alert, responsive, speech normal Psychiatric: normal inspection, judgement/insight normal, mood/affect normal Skin: normal inspection, normal color, no rash Medical Decision Making Diagnostic Impression: Primary Impression: ESRD on dialysis Additional Impression: Asthma exacerbation ER Course Patient presented for shortness of breath. Differential diagnosis included but was not limited to bronchitis, pneumonia, pulmonary embolism, pericarditis, asthma, foreign body.Because of complexity of patient's case laboratory testing and imaging studies were ordered. The {studies showed evidence of chronic renal disease. Chest x-ray one view interpreted by me indication shortness of breath showed normal cardiac size without evident infiltrate. The patient is given prescription for medications. He is advised to follow-up with dialysis later in the dayThe patient is advised to return if he had any increased difficulty breathing or any other concerns. Labs Test 11/08/17 01:32 11/08/17 01:33 White Blood Count 5.9 K/UL (4.8-10.8) Red Blood Count 3.45 M/UL (4.70-6.10) Hemoglobin 11.4 G/DL (14.2-18.0) Hematocrit 31.2 % (42.0-52.0) Mean Corpuscular Volume 90 FL (80-99) Mean Corpuscular Hemoglobin 32.9 PG (27.0-31.0) Mean Corpuscular Hemoglobin Concent 36.4 G/DL (32.0-36.0) Red Cell Distribution Width 11.6 % (11.6-14.8) Platelet Count 133 K/UL (150-450) Mean Platelet Volume 6.3 FL (6.5-10.1) Neutrophils (%) (Auto) 76.1 % (45.0-75.0) Lymphocytes (%) (Auto) 10.7 % (20.0-45.0) Monocytes (%) (Auto) 8.7 % (1.0-10.0) Eosinophils (%) (Auto) 3.5 % (0.0-3.0) Basophils (%) (Auto) 1.0 % (0.0-2.0) Sodium Level 139 MMOL/L (136-145) Potassium Level 4.4 MMOL/L (3.5-5.1) Chloride Level 100 MMOL/L (98-107) Carbon Dioxide Level 28 MMOL/L (21-32) Anion Gap 11 mmol/L (5-15) Blood Urea Nitrogen 26 mg/dL (7-18) Creatinine 8.7 MG/DL (0.55-1.30) Estimat Glomerular Filtration Rate 6.4 mL/min (>60) Glucose Level 119 MG/DL (74-106) Calcium Level 9.2 MG/DL (8.5-10.1) Total Bilirubin 0.5 MG/DL (0.2-1.0) Aspartate Amino Transf (AST/SGOT) 16 U/L (15-37) Alanine Aminotransferase (ALT/SGPT) 23 U/L (12-78) Alkaline Phosphatase 67 U/L (46-116) Total Protein 8.1 G/DL (6.4-8.2) Albumin 3.5 G/DL (3.4-5.0) Globulin 4.6 g/dL Albumin/Globulin Ratio 0.8 (1.0-2.7) Lipase 459 U/L (73-393) Status: improved Disposition: HOME, SELF-CARE Condition: Improved Scripts Amoxicillin* (AMOXICILLIN*) 250 Mg/5 Ml Susp.recon 250 MG ORAL DAILY for 10 Days, #10 ML Prov: Ignacio Marino 11/08/17 Guaifenesin* (ADULT WAL-TUSSIN*) 100 Mg/5 Ml Liquid 5 ML ORAL Q4H, #120 ML Prov: Ignacio Marino 11/08/17 Referrals: EDINSON JIANG (PCP) Patient Instructions: Asthma, Adult Ignacio Marino Nov 13, 2017 01:06
== END 2017-11-08 02:30 | disposition home or self-care (01) ==
LOC: EDBD 01:25 → EMR 01:36
DX: N18.6 End stage renal disease (principal); J45.901 Unspecified asthma with (acute) exacerbation; J44.0 Chronic obstructive pulmonary disease with (acute) lower respiratory infection; Z99.2 Dependence on renal dialysis; Z91.010 Allergy to peanuts; Z91.018 Allergy to other foods
CPT/HCPCS: 36415; 80053; 83690; 85025; 93005; 99283

== ENCOUNTER 2017-11-25 21:31 | Emergency (ER) | payer MEDICARE, MEDICAID ==
[~2017-11-25] VITALS: Ht 167.6 cm; Wt 57.6 kg
[~2017-11-25 21:31] MED LIST changes: +ADULT WAL-100 MG/5 M ORAL; +AMOXICILLI250 MG/5 M ORAL; +BACTRIM DS TAB1 EAC1 ORAL
[2017-11-25] MEDS ORDERED: Norco 5mg/325mg tab ORAL ONE (22:15)
[2017-11-25] MEDS ORDERED: ACETAMINOPHEN-1 EAC1 ORAL (23:39)
[2017-11-25 23:50] VITALS: BP 156/71
--- NOTE | 2017-11-26 04:23 | Emergency Room Report ---
History of Present Illness General Chief Complaint: Headache Source: Patient Present Illness HPI 57-year-old male presents ED complaining of headache. Started approximately 2 weeks ago. Throbbing, frontal, 6 out of 10, nonradiating. Taking Tylenol without relief. Denies photophobia or blurry vision. Denies nausea or vomiting. Denies any neck stiffness. History of end-stage renal disease and is compliant with his dialysis schedule. Denies chest pain or shortness of breath. No other aggravating relieving factors. Denies any other associated symptoms Allergies: Coded Allergies: PEANUT (Verified Allergy, Intermediate, Rash, 06/10/17) AVOCADO (Unverified Allergy, Unknown, 06/10/17) Dairy (Verified Allergy, Unknown, Rash, 06/10/17) Patient History Past Medical History: HTN, asthma, COPD, renal disease Past Surgical History: none Pertinent Family History: none Social History: Denies: smoking, alcohol use, drug use Immunizations: UTD Reviewed Nursing Documentation: PMH: Agreed; PSxH: Agreed Nursing Documentation-PMH Hx Cardiac Problems: Yes Hx Pacemaker: No Hx Asthma: Yes Hx COPD: Yes Hx Diabetes: No Hx Cancer: No Hx Gastrointestinal Problems: Yes - Pancreatitis Hx Dialysis: Yes - Tues/Thurs/Sat. Hx Neurological Problems: No Hx Cerebrovascular Accident: No Hx Seizures: No Hx Weakness: Yes Hx Fatigue: Yes Review of Systems All Other Systems: negative except mentioned in HPI Physical Exam Vital Signs Date Time Temp Pulse Resp B/P (MAP) Pulse Ox O2 Delivery O2 Flow Rate FiO2 11/25/17 21:37 98.1 74 16 179/89 98 Room Air 98.1 Sp02 EP Interpretation: reviewed, normal General Appearance: no apparent distress, alert, GCS 15, non-toxic Head: normocephalic, atraumatic Eyes: bilateral eye normal inspection, bilateral eye PERRL ENT: hearing grossly normal, normal pharynx, no angioedema, normal voice Neck: full range of motion, supple, no meningismus, supple/symm/no masses Respiratory: chest non-tender, lungs clear, normal breath sounds, speaking full sentences Cardiovascular #1: regular rate, rhythm, no edema Cardiovascular #2: 2+ carotid (R), 2+ carotid (L), 2+ radial (R), 2+ radial (L) , 2+ dorsalis pedis (R), 2+ dorsalis pedis (L) Gastrointestinal: normal bowel sounds, non tender, soft, non-distended, no guarding, no rebound Rectal: deferred Genitourinary: normal inspection, no CVA tenderness Musculoskeletal: back normal, gait/station normal, normal range of motion, non- tender Neurologic: alert, oriented x3, responsive, motor strength/tone normal, sensory intact, speech normal Psychiatric: judgement/insight normal, memory normal, mood/affect normal, no suicidal/homicidal ideation Reflexes: 3+ bicep (R), 3+ bicep (L), 3+ tricep (R), 3+ tricep (L), 3+ knee (R) , 3+ knee (L) Skin: normal color, no rash, warm/dry, well hydrated Lymphatic: no adenopathy Medical Decision Making Diagnostic Impression: Primary Impression: Headache Qualified Codes: R51 - Headache ER Course Hospital Course 57-year-old male complaining of persistent headache 2 weeks unresolved with pain medication Differential diagnoses include: skull fx, intracranial injury, concussion Clinical course Patient placed on stretcher. After initial history and physical I ordered CT head and pain medications CT head shows no acute process. Discussed findings with PMD Dr. Jiang; he is very familiar with this patient. Agrees that given negative CT patient can be safely discharged home. History of anxiety Diagnosis - headache Stable and discharged to home with Rx Tylenol #3. Followup with PMD. Return to ED if symptoms recur or worsen CT/MRI/US Diagnostic Results CT/MRI/US Diagnostic Results : Imaging Test Ordered: CT Head Impression no acute process Last Vital Signs Date Time Temp Pulse Resp B/P (MAP) Pulse Ox O2 Delivery O2 Flow Rate FiO2 11/25/17 23:50 80 16 156/71 94 Room Air 11/25/17 23:50 98.1 98.1 Status: improved Disposition: HOME, SELF-CARE Condition: Stable Scripts Acetaminophen With Codeine (T#3) (TYLENOL #3 TAB*) Y Tab 1 TAB ORAL Q8H PRN for For Pain, #20 TAB Prov: Jai Castellanos MD 11/25/17 Referrals: EDINSON JIANG (PCP) Patient Instructions: General Headache Without Cause Jai Castellanos MD November 26, 2017 04:23
--- NOTE | 2017-11-26 10:32 | Diagnostic Imaging Report ---
Indication: Headache Technique: Continuous helical CT scanning of the head was performed utilizing automated exposure control without intravenous contrast material. Axial and coronal reconstructions were obtained. Comparison: None CT dose: Total DLP 1843.75 mGycm; CTDI vol 70.38,70.38 mGy Findings: Motion degraded exam this particularly limits images through the skull base. Within these limitations: There is no acute intracranial hemorrhage, mass effect or cortical edema. The ventricles, cisterns and sulci are within normal limits for age.Visualized mastoid air cells are clear. Mild mucosal thickening in the paranasal sinuses. No definite focal lesions of the bony calvarium or soft tissues of the scalp are seen. IMPRESSION: Motion degraded exam. Within these limitations: No definite evidence of acute intracranial hemorrhage, mass effect or cortical edema. MRI may be obtained for more sensitive evaluation as clinically indicated. The CT scanner at [facility] is accredited by the [employer] and the scans are performed using protocols designed to limit radiation exposure to as low as reasonably achievable to attain images of sufficient resolution adequate for diagnostic evaluation.
== END 2017-11-25 23:55 | disposition home or self-care (01) ==
LOC: EMR 21:55
DX: R51 Headache (principal); J44.9 Chronic obstructive pulmonary disease, unspecified; Z91.010 Allergy to peanuts; Z91.018 Allergy to other foods
CPT/HCPCS: 70450; 99284

== ENCOUNTER 2017-12-24 03:32 | Emergency (ER) | payer MEDICARE, MEDICAID ==
[~2017-12-24] VITALS: Ht 170.2 cm; Wt 57.6 kg
[~2017-12-24 03:32] MED LIST changes: +ACETAMINOPHEN-1 EAC1 ORAL
[2017-12-24 03:35] VITALS: BP 188/81
[2017-12-24] MEDS ORDERED: Acetaminophen 500mg (ES) tab ORAL ONE (03:45)
[2017-12-24] MEDS ORDERED: IBUPROFEN600 MG ORAL (03:46)
--- NOTE | 2017-12-24 03:46 | Emergency Room Report ---
History of Present Illness General Chief Complaint: Headache Source: Patient, Medical Record Present Illness HPI Is a 57-year-old male with history of high blood pressure, renal failure on hemodialysis. He had dialysis today already. He presents with chief point of headache. He's been here numerous times for different pain complaint. Pain is to the back of his head throbbing nature. No nausea no vomiting. No fever or chills. He came by EMS with his brother. Allergies: Coded Allergies: PEANUT (Verified Allergy, Intermediate, Rash, 06/10/17) AVOCADO (Unverified Allergy, Unknown, 06/10/17) Dairy (Verified Allergy, Unknown, Rash, 06/10/17) Patient History Past Medical History: see triage record, old chart reviewed, renal disease, dialysis Past Surgical History: other Pertinent Family History: none Social History: Denies: smoking Immunizations: other Reviewed Nursing Documentation: PMH: Agreed; PSxH: Agreed Nursing Documentation-PMH Past Medical History: No History, Except For Hx Cardiac Problems: Yes Hx Pacemaker: No Hx Asthma: Yes Hx COPD: Yes Hx Diabetes: No Hx Cancer: No Hx Gastrointestinal Problems: Yes - Pancreatitis Hx Dialysis: Yes - Tues/Thurs/Sat. Hx Neurological Problems: No Hx Cerebrovascular Accident: No Hx Seizures: No Hx Weakness: Yes Hx Fatigue: Yes Review of Systems Eye: Denies: eye pain, blurred vision ENT: Denies: ear pain, nose congestion, throat swelling Respiratory: Denies: cough, shortness of breath Cardiovascular: Denies: chest pain, palpitations Gastrointestinal: Denies: abdominal pain, diarrhea, nausea, vomiting Musculoskeletal: Denies: back pain, joint pain Skin: Denies: rash Neurological: Reports: headache; Denies: numbness Endocrine: Denies: increased thirst, increased urine Hematologic/Lymphatic: Denies: easy bruising All Other Systems: negative except mentioned in HPI Physical Exam Vital Signs Date Time Temp Pulse Resp B/P (MAP) Pulse Ox O2 Delivery O2 Flow Rate FiO2 12/24/17 03:24 98.6 87 16 188/81 97 Room Air 98.6 vitals with high blood pressure Sp02 EP Interpretation: reviewed, normal General Appearance: well appearing, no apparent distress, alert Head: normocephalic, atraumatic Eyes: bilateral eye PERRL, bilateral eye EOMI ENT: hearing grossly normal, normal pharynx Neck: full range of motion, supple, no meningismus Respiratory: chest non-tender, lungs clear, normal breath sounds Cardiovascular #1: regular rate, rhythm, no murmur Gastrointestinal: normal bowel sounds, non tender, no mass, no organomegaly, no bruit, non-distended Musculoskeletal: back normal, gait/station normal, normal range of motion Psychiatric: mood/affect normal Skin: warm/dry Medical Decision Making Diagnostic Impression: Primary Impression: Headache Qualified Codes: G44.209 - Tension-type headache, unspecified, not intractable Additional Impression: Hypertension Qualified Codes: I10 - Essential (primary) hypertension ER Course Patient presents with headache. No evidence of any focal deficit. He had recent CAT scan last month was normal. Patient was very defensive when I ask some questions during part of the exam. He is vague in his response. We'll discharge home. Onset is a TIA or bleed. No meningitis. Last Vital Signs Date Time Temp Pulse Resp B/P (MAP) Pulse Ox O2 Delivery O2 Flow Rate FiO2 12/24/17 03:24 98.6 87 16 188/81 97 Room Air 98.6 Status: improved Disposition: HOME, SELF-CARE Condition: Stable Scripts Ibuprofen* (MOTRIN*) 600 Mg Tablet 600 MG ORAL THREE TIMES A DAY, #30 TAB 0 Refills Prov: RADHA MARRERO M.D. 12/24/17 Patient Instructions: General Headache Without Cause Additional Instructions: follow-up with your doctor in 7 days. Return if worse. RADHA MARRERO M.D. Dec 24, 2017 03:46
[2017-12-24 03:50] VITALS: BP 188/81
== END 2017-12-24 03:50 | disposition home or self-care (01) ==
LOC: EDBD 03:32 → EMR 03:43
DX: R51 Headache (principal); N19 Unspecified kidney failure; Z99.2 Dependence on renal dialysis; I10 Essential (primary) hypertension; Z91.011 Allergy to milk products; Z91.010 Allergy to peanuts; Z91.018 Allergy to other foods; J45.909 Unspecified asthma, uncomplicated; J44.9 Chronic obstructive pulmonary disease, unspecified
CPT/HCPCS: 99283

== ENCOUNTER 2017-12-30 04:12 | Emergency (ER) | payer MEDICARE, MEDICAID ==
[~2017-12-30] VITALS: Ht 170.2 cm; Wt 56.7 kg
[~2017-12-30 04:12] MED LIST changes: +IBUPROFEN600 MG ORAL
[2017-12-30] MEDS ORDERED: OMEPRAZOLE10 M1 ORAL (04:19)
[2017-12-30] MEDS ORDERED: TYLENOL EXTRA500 MG ORAL (05:07)
[2017-12-30 05:09] VITALS: BP 177/90
--- NOTE | 2017-12-30 21:42 | Emergency Room Report ---
History of Present Illness General Chief Complaint: Pain Source: Patient, Medical Record Present Illness HPI 57-year-old male presents ED for evaluation. Patient states that he has a headache and left shoulder pain. Started last night. Pain is throbbing, 7 out of 10, nonradiating. Denies blurry vision. Denies neck pain. Denies nausea or vomiting. Denies any injury. History of ESRD. On dialysis. States he is compliant with his dialysis. Denies chest pain or shortness of breath. No other aggravating relieving factors. Denies any other associated symptoms Allergies: Coded Allergies: PEANUT (Verified Allergy, Intermediate, Rash, 06/10/17) AVOCADO (Unverified Allergy, Unknown, 06/10/17) Dairy (Verified Allergy, Unknown, Rash, 06/10/17) Patient History Past Medical History: asthma, COPD, renal disease, dialysis Past Surgical History: none Pertinent Family History: none Social History: Denies: smoking, alcohol use, drug use Immunizations: UTD Reviewed Nursing Documentation: PMH: Agreed; PSxH: Agreed Nursing Documentation-PMH Hx Cardiac Problems: Yes Hx Pacemaker: No Hx Asthma: Yes Hx COPD: Yes Hx Diabetes: No Hx Cancer: No Hx Gastrointestinal Problems: Yes - Pancreatitis, Chronic renal failure Hx Dialysis: Yes - Tues/Th/Sat. Hx Neurological Problems: No Hx Cerebrovascular Accident: No Hx Seizures: No Hx Weakness: Yes Hx Fatigue: Yes Review of Systems All Other Systems: negative except mentioned in HPI Physical Exam Vital Signs Date Time Temp Pulse Resp B/P (MAP) Pulse Ox O2 Delivery O2 Flow Rate FiO2 12/30/17 04:14 97.7 102 18 177/90 98 Room Air 97.7 Sp02 EP Interpretation: reviewed, normal General Appearance: no apparent distress, alert, GCS 15, non-toxic Head: normocephalic, atraumatic Eyes: bilateral eye normal inspection, bilateral eye PERRL ENT: hearing grossly normal, normal pharynx, no angioedema, normal voice Neck: full range of motion, supple/symm/no masses Respiratory: chest non-tender, lungs clear, normal breath sounds, speaking full sentences Cardiovascular #1: regular rate, rhythm, no edema Cardiovascular #2: 2+ carotid (R), 2+ carotid (L), 2+ radial (R), 2+ radial (L) , 2+ dorsalis pedis (R), 2+ dorsalis pedis (L) Gastrointestinal: normal bowel sounds, non tender, soft, non-distended, no guarding, no rebound Rectal: deferred Genitourinary: normal inspection, no CVA tenderness Musculoskeletal: back normal, gait/station normal, normal range of motion, non- tender, tender - L upper back. full ROM Neurologic: alert, oriented x3, responsive, motor strength/tone normal, sensory intact, speech normal Psychiatric: judgement/insight normal, memory normal, mood/affect normal, no suicidal/homicidal ideation Reflexes: 3+ bicep (R), 3+ bicep (L), 3+ tricep (R), 3+ tricep (L), 3+ knee (R) , 3+ knee (L) Skin: normal color, no rash, warm/dry, well hydrated Lymphatic: no adenopathy Medical Decision Making Diagnostic Impression: Primary Impression: Shoulder pain Qualified Codes: M25.512 - Pain in left shoulder Additional Impression: End-stage renal disease ER Course 57-year-old male presents ED complaining of headache, left shoulder pain Differentialanxiety, migraine, muscular pain Patient placed on stretcher. After initial history, physical exam reveals male in no acute distress. There is no focal neurological deficits. No nuchal rigidity. There is some pain to the back of the left shoulder consistent with muscular pain. No crepitus or deformity. Full range of motion to left shoulder. Suspicion for acute process. I reviewed EMR. Patient is well-known to [facility] has been here multiple times for similar vague related complaints. Patient is has been seen for headache multiple times. My suspicion for acute process is low Patient states his blood pressure was "very high". In triage blood pressure is 177/80. I believe patient can be safely discharged to home. Given Tylenol in ED [place] pain, end-stage renal disease Stable and discharged to home. Follow-up with PMD. Return to ED if symptoms recur or worsen Last Vital Signs Date Time Temp Pulse Resp B/P (MAP) Pulse Ox O2 Delivery O2 Flow Rate FiO2 12/30/17 05:09 97.7 18 177/90 98 Room Air 97.7 12/30/17 04:14 102 Status: improved Disposition: HOME, SELF-CARE Condition: Stable Scripts Acetaminophen* (TYLENOL EXTRA STRENGTH*) 500 Mg Tablet 500 MG ORAL Q8H PRN for Prn Headache/Temp > 101, #30 TAB 0 Refills Prov: Jai Castellanos MD 12/30/17 Patient Instructions: Shoulder Sprain Jai Castellanos MD Dec 30, 2017 21:42
== END 2017-12-30 05:15 | disposition home or self-care (01) ==
LOC: EDBD 04:12 → EMR 04:36
DX: M25.512 Pain in left shoulder (principal); R51 Headache; N18.6 End stage renal disease; Z99.2 Dependence on renal dialysis; J44.9 Chronic obstructive pulmonary disease, unspecified; Z91.010 Allergy to peanuts; Z91.018 Allergy to other foods
CPT/HCPCS: 99283

== ENCOUNTER 2018-05-08 21:45 | Observation (INO) | payer MEDICARE, MEDICAID ==
[~2018-05-08] VITALS: Ht 170.2 cm; Wt 57.6 kg
[~2018-05-08 21:45] MED LIST changes: +OMEPRAZOLE10 M1 ORAL; +TYLENOL EXTRA500 MG ORAL
--- NOTE | 2018-05-08 22:58 | Emergency Room Report ---
History of Present Illness General Chief Complaint: Hypertension Source: Patient Present Illness HPI Patient pressure is noted to be hydrated during dialysis. They gave him some unknown medication there. He does have antihypertensives but did not take any because blood pressure was okay at home earlier today. He has any chest pain. He does have some occipital tenderness. States ALFARO is minimal pain. Had dialysis today. Rarely produces urine. No dysuria. No extremity pain. No rashes. No bleeding. No change in bowels. When admitted in past, no meds for HTN given. Allergies: Coded Allergies: AVOCADO (Verified Allergy, Intermediate, 05/09/18) PEANUT (Verified Allergy, Intermediate, Rash, 05/08/18) Dairy (Verified Allergy, Unknown, Rash, 05/08/18) MAYONNAISE (Verified Allergy, Unknown, rash, 05/08/18) Patient History Past Medical History: see triage record, old chart reviewed Past Surgical History: other - fistula L upper arm Social History: Denies: smoking - former Social History Narrative with friend Reviewed Nursing Documentation: PMH: Agreed; PSxH: Agreed Nursing Documentation-PMH Past Medical History: No History, Except For Hx Cardiac Problems: Yes Hx Pacemaker: No Hx Asthma: Yes Hx COPD: Yes Hx Diabetes: No Hx Cancer: No Hx Gastrointestinal Problems: Yes - Pancreatitis, Chronic renal failure Hx Dialysis: Yes - Tues/Th/Sat. Shunt Left Upper Arm Hx Neurological Problems: No Hx Cerebrovascular Accident: No Hx Seizures: No Hx Weakness: Yes Hx Fatigue: Yes Review of Systems All Other Systems: negative except mentioned in HPI Physical Exam Vital Signs Date Time Temp Pulse Resp B/P (MAP) Pulse Ox O2 Delivery O2 Flow Rate FiO2 05/08/18 22:37 99.0 91 16 194/99 97 Room Air 99.0 Sp02 EP Interpretation: reviewed, normal General Appearance: well appearing, no apparent distress, GCS 15 Head: normocephalic Eyes: bilateral eye normal inspection, bilateral eye PERRL ENT: moist mucus membranes Neck: supple Respiratory: lungs clear, normal breath sounds Cardiovascular #1: regular rate, rhythm, no edema Cardiovascular #2: 2+ radial (R), 2+ radial (L) - fistula L upper arm good thrill Gastrointestinal: normal inspection, normal bowel sounds, non tender, no mass, non-distended Musculoskeletal: back normal, gait/station normal, normal range of motion, no calf tenderness Neurologic: alert, oriented x3, grossly normal Psychiatric: mood/affect normal Skin: normal inspection, warm/dry Medical Decision Making Diagnostic Impression: Primary Impression: Hypertension Qualified Codes: I10 - Essential (primary) hypertension Additional Impressions: Abnormal EKG ESRD on dialysis ER Course Dialysis patient presents with hypertension. Review of his old admissions do not show that he is on antihypertensives usually. Differential includes hypertensive urgency, hypertension, essential hypertension amongst others. Clinically he appears stable however we need to evaluate with EKG, chest x-ray and labs. The patient will be given 0.1 of clonidine by mouth. EKG with "STEMI" but I disagree. CXR vasc fullness. Labs with neg troponin. ESRD. Elevated BNP. Treated with nitrates, aspirin and metoprolol. Improved BP. Repeat EKG without "STEMI" Admit Tele Dr. Chaney. Laboratory Tests Test 05/08/18 23:40 05/09/18 07:50 White Blood Count 5.3 K/UL (4.8-10.8) 4.3 K/UL (4.8-10.8) L Red Blood Count 4.10 M/UL (4.70-6.10) L 3.60 M/UL (4.70-6.10) L Hemoglobin 12.2 G/DL (14.2-18.0) L 10.7 G/DL (14.2-18.0) L Hematocrit 35.6 % (42.0-52.0) L 31.7 % (42.0-52.0) L Mean Corpuscular Volume 87 FL (80-99) 88 FL (80-99) Mean Corpuscular Hemoglobin 29.8 PG (27.0-31.0) 29.7 PG (27.0-31.0) Mean Corpuscular Hemoglobin Concent 34.3 G/DL (32.0-36.0) 33.7 G/DL (32.0-36.0) Red Cell Distribution Width 12.7 % (11.6-14.8) 12.6 % (11.6-14.8) Platelet Count 140 K/UL (150-450) L 119 K/UL (150-450) L Mean Platelet Volume 6.0 FL (6.5-10.1) L 5.7 FL (6.5-10.1) L Neutrophils (%) (Auto) 65.6 % (45.0-75.0) 45.9 % (45.0-75.0) Lymphocytes (%) (Auto) 17.0 % (20.0-45.0) L 28.2 % (20.0-45.0) Monocytes (%) (Auto) 6.5 % (1.0-10.0) 9.8 % (1.0-10.0) Eosinophils (%) (Auto) 9.7 % (0.0-3.0) H 14.6 % (0.0-3.0) H Basophils (%) (Auto) 1.1 % (0.0-2.0) 1.5 % (0.0-2.0) Sodium Level 139 MMOL/L (136-145) 140 MMOL/L (136-145) Potassium Level 4.5 MMOL/L (3.5-5.1) 5.3 MMOL/L (3.5-5.1) H Chloride Level 101 MMOL/L (98-107) 103 MMOL/L (98-107) Carbon Dioxide Level 29 MMOL/L (21-32) 28 MMOL/L (21-32) Anion Gap 9 mmol/L (5-15) 9 mmol/L (5-15) Blood Urea Nitrogen 23 mg/dL (7-18) H 31 mg/dL (7-18) H Creatinine 6.3 MG/DL (0.55-1.30) H 7.5 MG/DL (0.55-1.30) H Estimate Glomerular Filtration Rate 9.2 mL/min (>60) 7.6 mL/min (>60) Glucose Level 115 MG/DL (74-106) H 92 MG/DL (74-106) Calcium Level 9.8 MG/DL (8.5-10.1) 9.2 MG/DL (8.5-10.1) Total Bilirubin 0.5 MG/DL (0.2-1.0) 0.3 MG/DL (0.2-1.0) Aspartate Amino Transferase (AST) 18 U/L (15-37) 14 U/L (15-37) L Alanine Aminotransferase (ALT) 27 U/L (12-78) 20 U/L (12-78) Alkaline Phosphatase 89 U/L (46-116) 66 U/L (46-116) Total Creatine Kinase 59 U/L (26-308) Troponin I 0.023 ng/mL (0.000-0.056) 0.066 ng/mL (0.000-0.056) Pro-B-Type Natriuretic Peptide 9974 pg/mL (0-125) H Total Protein 9.1 G/DL (6.4-8.2) H 7.2 G/DL (6.4-8.2) Albumin 4.1 G/DL (3.4-5.0) 3.1 G/DL (3.4-5.0) L Globulin 5.0 g/dL 4.1 g/dL Albumin/Globulin Ratio 0.8 (1.0-2.7) L 0.8 (1.0-2.7) L Triglycerides Level 92 MG/DL (30-150) Cholesterol Level 113 MG/DL (< 200) LDL Cholesterol 58 mg/dL (<100) HDL Cholesterol 39 MG/DL (40-60) L Cholesterol/HDL Ratio 2.9 (3.3-4.4) L Thyroid Stimulating Hormone (TSH) 2.495 uiU/mL (0.358-3.740) EKG Diagnostic Results Rate: normal Rhythm: NSR ST Segments: other - computer reads STEMI, but I disagree ASA given to the pt in ED: Yes Rhythm Strip Diag. Results EP Interpretation: yes Rhythm: NSR, no PVC's, no ectopy Chest X-Ray Diagnostic Results Chest X-Ray Diagnostic Results : Chest X-Ray Ordered: Yes # of Views/Limited/Complete: 1 View Indication: Other EP Interpretation: Yes Interpretation: no effusion, no pneumothorax, other - scarring and increased roland R base Impression: Other Electronically Signed by: Electronically signed by Harrison Sparks MD Last Vital Signs Date Time Temp Pulse Resp B/P (MAP) Pulse Ox O2 Delivery O2 Flow Rate FiO2 05/09/18 09:00 Room Air 05/09/18 08:53 142/82 05/09/18 08:00 72 05/09/18 08:00 98.0 20 98 98.0 05/09/18 00:30 98 Status: improved Disposition: ADMITTED INPATIENT Condition: Serious Harrison Sparks M.D. May 08, 2018 22:58
[2018-05-08] MEDS ORDERED: cloNIDine 0.2mg Tab ORAL ONE (23:00)
[2018-05-08 23:30] VITALS: BP 194/99
[2018-05-08 23:50] LABS: BASOPHILS % (AUTO) 1.1 % (0.0-2.0); EOSINOPHILS % (AUTO) 9.7 % (0.0-3.0); HEMATOCRIT 35.6 % (42.0-52.0); HEMOGLOBIN 12.2 G/DL (14.2-18.0); MEAN CORPUSCULAR VOLUME 87 FL (80-99); MONOCYTES % (AUTO) 6.5 % (1.0-10.0); NEUTROPHILS % (AUTO) 65.6 % (45.0-75.0); PLATELET COUNT 140 K/UL (150-450); RED CELL DISTRIBUTION WIDTH 12.7 % (11.6-14.8); WHITE BLOOD COUNT 5.3 K/UL (4.8-10.8)
[2018-05-09] VITALS (8 sets, daily range): BP systolic 130–190; BP diastolic 75–99
[2018-05-09 00:06] LABS: ANION GAP 9 mmol/L (5-15); BLOOD UREA NITROGEN 23 mg/dL (7-18); CALCIUM 9.8 MG/DL (8.5-10.1); CARBON DIOXIDE 29 MMOL/L (21-32); CHLORIDE 101 MMOL/L (98-107); CREATININE 6.3 MG/DL (0.55-1.30); POTASSIUM 4.5 MMOL/L (3.5-5.1); SODIUM 139 MMOL/L (136-145)
[2018-05-09 00:17] LABS: ALANINE AMINOTRANSFERASE 27 U/L (12-78); ALBUMIN 4.1 G/DL (3.4-5.0); ALBUMIN/GLOBULIN RATIO 0.8 (1.0-2.7); ALKALINE PHOSPHATASE 89 U/L (46-116); ASPARTATE AMINO TRANSFERASE 18 U/L (15-37); BILIRUBIN,TOTAL 0.5 MG/DL (0.2-1.0); CREATINE KINASE 59 U/L (26-308)
[2018-05-09] MEDS ORDERED: Nitroglycerin Patch 0.2mg/hr TDERMAL ONE (00:43)
[2018-05-09] MEDS ORDERED: Nitroglycerin 2% oint pkt TOPIC ONE (00:45)
[2018-05-09] MEDS: Metoprolol 5mg/5ml Inj IVP SCH ×2 (00:47→01:13)
[2018-05-09] MEDS ORDERED: Heparin Sod 1000 units/ml 10ml IV SCH (08:00)
[2018-05-09] MEDS ORDERED: Miralax 17gm pkt ORAL PRN (08:00)
[2018-05-09] MEDS ORDERED: Nitroglycerin Subl 0.4mg tab SL PRN (08:00)
[2018-05-09] MEDS ORDERED: LORazepam 1mg tab ORAL PRN (08:00)
[2018-05-09 08:50] LABS: BASOPHILS % (AUTO) 1.5 % (0.0-2.0); EOSINOPHILS % (AUTO) 14.6 % (0.0-3.0); HEMATOCRIT 31.7 % (42.0-52.0); HEMOGLOBIN 10.7 G/DL (14.2-18.0); LYMPHOCYTES % (AUTO) 28.2 % (20.0-45.0); MEAN CORPUSCULAR VOLUME 88 FL (80-99); MONOCYTES % (AUTO) 9.8 % (1.0-10.0); NEUTROPHILS % (AUTO) 45.9 % (45.0-75.0); PLATELET COUNT 119 K/UL (150-450); RED CELL DISTRIBUTION WIDTH 12.6 % (11.6-14.8); WHITE BLOOD COUNT 4.3 K/UL (4.8-10.8)
[2018-05-09] MEDS: Renvela 800mg Pkt ORAL SCH ×2 (08:53→16:42)
[2018-05-09] MEDS ORDERED: Heparin 5000 units/ml inj SUBQ SCH (09:00)
[2018-05-09] MEDS ORDERED: Losartan 50mg tab ORAL SCH (09:00)
[2018-05-09] MEDS ORDERED: Aspirin Baby 81mg ORAL SCH (09:00)
[2018-05-09] MEDS ORDERED: Sensipar 30mg Tab ORAL SCH (09:00)
[2018-05-09 09:09] LABS: ALANINE AMINOTRANSFERASE 20 U/L (12-78); ALBUMIN 3.1 G/DL (3.4-5.0); ALBUMIN/GLOBULIN RATIO 0.8 (1.0-2.7); ALKALINE PHOSPHATASE 66 U/L (46-116); ANION GAP 9 mmol/L (5-15); ASPARTATE AMINO TRANSFERASE 14 U/L (15-37); BILIRUBIN,TOTAL 0.3 MG/DL (0.2-1.0); BLOOD UREA NITROGEN 31 mg/dL (7-18); CALCIUM 9.2 MG/DL (8.5-10.1); CARBON DIOXIDE 28 MMOL/L (21-32); CHLORIDE 103 MMOL/L (98-107); CHOLESTEROL 113 MG/DL (< 200); CREATININE 7.5 MG/DL (0.55-1.30); HDL CHOLESTEROL 39 MG/DL (40-60); POTASSIUM 5.3 MMOL/L (3.5-5.1); SODIUM 140 MMOL/L (136-145); TRIGLYCERIDES 92 MG/DL (30-150)
--- NOTE | 2018-05-09 10:31 | Diagnostic Imaging Report ---
EXAM: XR Chest, 1 View CLINICAL HISTORY: CP TECHNIQUE: Frontal view of the chest. COMPARISON: Chest x-ray 06-10-17 FINDINGS: Lungs: Interstitial thickening. Mild bibasilar lung atelectasis/airspace disease. Pleural space: Unremarkable. No pneumothorax. Heart: Unremarkable. No cardiomegaly. Mediastinum: Unremarkable. Bones/joints: Unremarkable. IMPRESSION: Interstitial thickening. Mild bibasilar lung atelectasis/airspace disease. Query interstitial edema versus interstitial infiltrate/or pneumonia.
[2018-05-09] MEDS: Albuterol/Ipratropium 3ml neb HHN SCH ×2 (11:24→15:22)
--- NOTE | 2018-05-09 12:30 | History and Physical Report ---
DATE OF ADMISSION: 05/09/2018 CHIEF COMPLAINT/REASON FOR HOSPITALIZATION: The patient admitted with elevated blood pressure, headache, malaise, and cough. HISTORY OF PRESENT ILLNESS: The patient is well known to me. He has end-stage renal disease, on dialysis. He is 57 years old, has been on dialysis for many years. He has also had a history of prior episodes of bronchitis and psychiatric disorder likely schizoaffective. He has gradually increasing blood pressure over the last six months and has been given losartan, but he does not take it regularly. He was at the outpatient dialysis unit on 05/08/2018 and apparently his blood pressure went up to 180 systolic and he had headache and was given p.r.n. clonidine at the dialysis center and subsequently he came to the emergency room complaining of headache, weakness, and dizziness. He states now he did not have chest pain, but there was some concern about chest pain in the emergency room. He is admitted for possible acute coronary syndrome. He has had prior hospitalizations for atypical chest pain in the past. He has never had any cardiac events. ALLERGIES: None known. HOME MEDICATIONS: Include albuterol inhaler p.r.n., Seroquel, omeprazole, Sensipar, Renvela, and losartan. He also gets a protocol for analog . HABITS: He is a nondrinker and nonsmoker. No use of illicit drugs. SOCIAL HISTORY: He is single, lives with his brother. PAST SURGICAL HISTORY: AV fistula, left arm. SYSTEM REVIEW: HEAD, EYES, EARS, NOSE, AND THROAT: The vision and hearing is good. ENDOCRINE: No diabetes or thyroid disease. PULMONARY: History of recurrent bronchitis. He had a cough earlier in the week, which is improving. No TB. CARDIAC: History of mild hypertension. No history of OR or CHF or arrhythmias. GASTROINTESTINAL: History of gastritis improved with PPI. No recent nausea, vomiting, hematochezia or melena. GENITOURINARY: He makes small amounts of urine. No dysuria. NEUROLOGIC: No CVA or seizure. PSYCHIATRIC: History of anxiety and delusional disorder. PHYSICAL EXAMINATION: GENERAL: The patient is alert, well-developed man, in no acute distress. VITAL SIGNS: Blood pressure 142/80, pulse 79, respiratory rate 20, and temperature 98. HEAD, EYES, EARS, NOSE, AND THROAT: Sclerae are nonicteric. Ocular motions intact in all directions. Oral mucosa moist. NECK: No adenopathy or thyroid enlargement. LUNGS: Clear. HEART: Regular rhythm. Normal S1 and S2. No murmur. ABDOMEN: Soft without organomegaly or masses. EXTREMITIES: No edema, cyanosis or clubbing. There is an AV fistula in the left upper arm. NEUROLOGIC: He is alert and oriented. Cranial nerves are intact. No focal findings. LABORATORY DATA: White count 4.3, hemoglobin 10.7, potassium 5.3, BUN 31. Troponin 0.023 and 0.066. IMPRESSION: 1. Elevated blood pressure, likely worse by anxiety and stress with possibly hypertensive headache. 2. Anxiety and possible schizoaffective disease. 3. Borderline troponin 0.023 and 0.066 likely nonspecific changes due to his renal failure. 4. End-stage renal disease. 5. Normal EKG. PLAN: The patient will be continued on losartan. We will watch how he does on dialysis. Today, if he remains stable, discharge is planned. Matt Chaney M.D. DR: MANUEL JOB#: [id number] CC:
[2018-05-09] MEDS ORDERED: Zolpidem 5mg tab ORAL PRN (21:00)
--- NOTE | 2018-05-12 16:17 | Cardiology Report ---
APPROVED REPORT EKG Measurement Heart [id number] Normal sinus rhythm Normal ECG
--- NOTE | 2018-05-12 16:20 | Cardiology Report ---
APPROVED REPORT EKG Measurement Heart [id number] [place] 144P [id number] Normal sinus rhythm Right ventricular hypertrophy Anterolateral infarct, age undetermined Inferior injury pattern Abnormal ECG
--- NOTE | 2018-05-12 16:21 | Cardiology Report ---
APPROVED REPORT EKG Measurement Heart [id number] [place] 152P [id number] Normal sinus rhythm Right ventricular hypertrophy Anterolateral infarct, age undetermined Inferior injury pattern Abnormal ECG
--- NOTE | 2018-05-15 13:14 | Discharge Summary ---
Discharge Summary Discharge Summary _ DATE OF ADMISSION: 05/09/2018 DATE OF DISCHARGE: 05/09/2018 BRIEF HOSPITAL COURSE: Patient is a 57-year-old male, with history of end-stage renal disease on hemodialyses, history of bronchitis and psychiatric disorder likely schizoaffective. He had gradual increase in blood pressure over the last 6 months and had been on losartan, however does not take it regularly. He was at the outpatient dialysis unit on 05/08/2018 and blood pressure was up to 180 systolic. He had headache and was given clonidine at the dialysis center and was subsequently transferred to emergency room. On evaluation at ED, blood pressure was 194/99. He was given aspirin, metoprolol and nitrate. He was given clonidine. Troponin was 0.023. BNP was elevated to> 9000. He was admitted under observation for evaluation of possible acute coronary syndrome. He was continued on aspirin. He was given Cozaar. Stressed need re: compliance with medications. Blood pressure improved and patient was discharged home. FINAL DIAGNOSES: Elevated blood pressure, worsened by anxiety and stress with possibly hypertensive headache Anxiety and possible schizoaffective disease Borderline troponin with nonspecific changes End-stage renal disease Normal EKG DISPOSITION: Patient was discharged home. DISCHARGE MEDICATIONS: Refer to Discharge Medication List. DISCHARGE INSTRUCTIONS: Follow up within a week. I have been assigned to dictate discharge summary on this account, and I was not involved in the patient's management. Maryuri Quinones NP May 15, 2018 13:14
== END 2018-05-09 17:53 | disposition home or self-care (01) ==
LOC: EMR 22:59 → 2E 05-09 00:42 → INTOOBSV 05-09 00:42 → EDBEDREQ 05-09 01:09
DX: R03.0 Elevated blood-pressure reading, without diagnosis of hypertension (principal); F41.9 Anxiety disorder, unspecified; R74.8 Abnormal levels of other serum enzymes; N18.6 End stage renal disease; Z99.2 Dependence on renal dialysis; J44.9 Chronic obstructive pulmonary disease, unspecified; F22 Delusional disorders; Z87.891 Personal history of nicotine dependence; Z87.19 Personal history of other diseases of the digestive system; Z79.899 Other long term (current) drug therapy; Z91.011 Allergy to milk products; Z91.010 Allergy to peanuts; Z91.018 Allergy to other foods
CPT/HCPCS: 36415 ×2; 71045; 80053 ×2; 80061; 82550; 83880; 84443; 84484 ×2; 85025 ×2; 87081 ×3; 93005 ×2; 94640; 94664; 96374; 99285; G0378 ×2; J1644; J7620

== ENCOUNTER 2018-05-12 20:03 | Emergency (ER) | payer MEDICARE, MEDICAID ==
[~2018-05-12] VITALS: Ht 167.6 cm; Wt 72.1 kg
[2018-05-12 20:16] VITALS: BP_SYST 135; BP_SYST 165; BP_DIAS 73; BP_DIAS 74
[2018-05-12] MEDS ORDERED: CEPHALEXIN500 MG ORAL (20:57)
[2018-05-12] MEDS ORDERED: MUPIROCIN22 GM TOPIC (20:57)
--- NOTE | 2018-05-12 20:58 | Emergency Room Report ---
History of Present Illness General Chief Complaint: Hypertension Source: Patient, Medical Record Present Illness HPI Is a 57-year-old male with a history high blood pressure and renal failure hemodialysis. He has been here numerous times for chief of headache and high blood pressure. He also has a history of anxiety/schizoaffective disorder. He presents with chief complaint of headache and high blood pressure. He was here a few days ago for the same thing. Denies any fever chills but denies any nausea vomiting. Similar symptom in the past. Thought that his blood pressure was high. Headache is throbbing in nature no change from before. Gradual onset. He also complaining of redness to the IV site that he had when he was in the hospital. Allergies: Coded Allergies: AVOCADO (Verified Allergy, Intermediate, 05/12/18) PEANUT (Verified Allergy, Intermediate, Rash, 05/12/18) Dairy (Verified Allergy, Unknown, Rash, 05/12/18) MAYONNAISE (Verified Allergy, Unknown, rash, 05/12/18) Patient History Past Medical History: see triage record, old chart reviewed, HTN, psych hx, renal disease Past Surgical History: other Pertinent Family History: none Social History: Denies: smoking Immunizations: other Reviewed Nursing Documentation: PMH: Agreed; PSxH: Agreed Nursing Documentation-PMH Past Medical History: No History, Except For Hx Cardiac Problems: Yes Hx Hypertension: Yes Hx Pacemaker: No Hx Asthma: Yes Hx COPD: Yes - PNA Hx Diabetes: No Hx Cancer: No Hx Gastrointestinal Problems: Yes Hx Dialysis: Yes - Tues/Thurs/Sat. Shunt Left Upper Arm Hx Neurological Problems: No Hx Cerebrovascular Accident: No Hx Seizures: No Hx Weakness: Yes Hx Fatigue: Yes Review of Systems Eye: Denies: eye pain, blurred vision ENT: Denies: ear pain, nose congestion, throat swelling Respiratory: Denies: cough, shortness of breath Cardiovascular: Denies: chest pain, palpitations Gastrointestinal: Denies: abdominal pain, diarrhea, nausea, vomiting Musculoskeletal: Denies: back pain, joint pain Skin: Denies: rash Neurological: Reports: headache; Denies: numbness Endocrine: Denies: increased thirst, increased urine Hematologic/Lymphatic: Denies: easy bruising All Other Systems: negative except mentioned in HPI Physical Exam Vital Signs Date Time Temp Pulse Resp B/P (MAP) Pulse Ox O2 Delivery O2 Flow Rate FiO2 10/23/18 20:16 98.3 81 15 165/73 95 Room Air 98.2 vitals with high blood pressure. Sp02 EP Interpretation: reviewed, normal General Appearance: well appearing, no apparent distress, alert Head: normocephalic, atraumatic Eyes: bilateral eye PERRL, bilateral eye EOMI ENT: hearing grossly normal, normal pharynx Neck: full range of motion, supple, no meningismus Respiratory: chest non-tender, lungs clear, normal breath sounds Cardiovascular #1: regular rate, rhythm, no murmur Gastrointestinal: normal bowel sounds, non tender, no mass, no organomegaly, no bruit, non-distended Musculoskeletal: back normal, gait/station normal, normal range of motion, other - Right antecubital area: There is a 1 cm area of thrombophlebitis. No crepitance. Psychiatric: mood/affect normal Skin: warm/dry Medical Decision Making Diagnostic Impression: Primary Impression: Hypertension Qualified Codes: I10 - Essential (primary) hypertension Additional Impression: Thrombophlebitis arm ER Course Patient with a blood pressure. Right now systolic 136. No evidence of endorgan damage. We'll discharge home. This most likely secondary to psychiatric issue/anxiety. He does have a small thrombophlebitis. We'll treat with antibiotics. Last Vital Signs Date Time Temp Pulse Resp B/P (MAP) Pulse Ox O2 Delivery O2 Flow Rate FiO2 05/12/18 20:16 98.0 81 13 135/74 98 Room Air 98.0 Status: improved Disposition: HOME, SELF-CARE Condition: Stable Scripts Mupirocin* (MUPIROCIN*) 22 Gm Oint...g. 1 APPLIC TOPIC THREE TIMES A DAY, #22 GM Prov: Lamin Howard MD 05/12/18 Cephalexin* (KEFLEX*) 500 Mg Capsule 500 MG ORAL TID, #21 CAP Prov: Lamin Howard MD 05/12/18 Additional Instructions: Take your blood pressure medication. Follow-up with dialysis as scheduled. Clean arm with hydrogen peroxide and then apply antibiotic ointment. Follow-up your doctor in a week. Return if symptom worsen. Lamin Howard MD May 12, 2018 20:58
[2018-05-12 21:02] VITALS: BP 135/74
== END 2018-05-12 21:30 | disposition home or self-care (01) ==
LOC: EMR 21:27
DX: I12.0 Hypertensive chronic kidney disease with stage 5 chronic kidney disease or end stage renal disease (principal); N18.6 End stage renal disease; Z99.2 Dependence on renal dialysis; I80.8 Phlebitis and thrombophlebitis of other sites; J44.9 Chronic obstructive pulmonary disease, unspecified; Z91.010 Allergy to peanuts; Z91.018 Allergy to other foods
CPT/HCPCS: 99283

== ENCOUNTER 2018-05-23 07:21 | Emergency (ER) | payer MEDICARE, MEDICAID ==
[~2018-05-23] VITALS: Ht 167.6 cm; Wt 74.8 kg
[~2018-05-23 07:21] MED LIST changes: +CEPHALEXIN500 MG ORAL; +MUPIROCIN22 GM TOPIC
[2018-05-23 07:44] VITALS: BP 133/75
--- NOTE | 2018-05-23 07:52 | Emergency Room Report ---
History of Present Illness General Chief Complaint: Generalized Weakness Source: Patient Present Illness HPI Patient presents with reports of elevated blood pressure Patient reports that he was taking his blood pressure yesterday and was reading at 200 systolic Patient reports that he missed his dialysis on however he did have dialysis yesterday and is due for one today as well Denies any chest pain He reports that he had some difficulty sleeping last night Denies any neck pain or photophobia Did not feel that his sleeping pill helping very much Denies any chest pain Denies any focal weakness Presents with complaints of elevated blood pressure Allergies: Coded Allergies: AVOCADO (Verified Allergy, Intermediate, 05/12/18) PEANUT (Verified Allergy, Intermediate, Rash, 05/12/18) CHEESE (Unverified Allergy, Unknown, 05/23/18) Dairy (Verified Allergy, Unknown, Rash, 05/12/18) MAYONNAISE (Verified Allergy, Unknown, rash, 05/12/18) Uncoded Allergies: PEANUTS (Allergy, Unknown, 05/23/18) Patient History Past Medical History: see triage record Pertinent Family History: none Reviewed Nursing Documentation: PMH: Agreed; PSxH: Agreed Nursing Documentation-PMH Past Medical History: No History, Except For Hx Asthma: Yes - Pneumonia Hx Gastrointestinal Problems: Yes - Pancreatitis Hx Dialysis: Yes - T-Th-Sat Review of Systems All Other Systems: negative except mentioned in HPI Physical Exam Vital Signs Date Time Temp Pulse Resp B/P (MAP) Pulse Ox O2 Delivery O2 Flow Rate FiO2 05/23/18 07:24 97.5 102 20 133/75 95 Room Air Sp02 EP Interpretation: reviewed, normal General Appearance: well appearing, no apparent distress Head: normocephalic, atraumatic Eyes: bilateral eye PERRL, bilateral eye EOMI ENT: hearing grossly normal, normal pharynx Neck: supple Respiratory: chest non-tender, lungs clear Cardiovascular #1: regular rate, rhythm, no edema Gastrointestinal: non tender, soft Musculoskeletal: normal inspection Neurologic: alert, oriented x3, responsive Skin: normal color, no rash, other - aV fistula left upper arm Lymphatic: no adenopathy Medical Decision Making Diagnostic Impression: Primary Impression: End-stage renal disease Additional Impression: hypertension ER Course Patient's blood pressure here is appropriate Patient remains hemodynamically stable Has a benign neurological exam Patient also has dialysis scheduled for today Given the evaluation here and his appropriate outpatient disposition Contact was made with his primary inspector process to notify him of the patient's presentation here recently And patient is otherwise stable for close outpatient follow-up Rhythm Strip Diag. Results EP Interpretation: yes Rate: 77 Rhythm: NSR, no PVC's, no ectopy Last Vital Signs Date Time Temp Pulse Resp B/P (MAP) Pulse Ox O2 Delivery O2 Flow Rate FiO2 05/23/18 07:44 97.6 102 20 133/75 Room Air 05/23/18 07:24 95 Status: unchanged Disposition: HOME, SELF-CARE Condition: Stable Patient Instructions: Chronic Kidney Disease, [id number], Managing Your High Blood Pressure Additional Instructions: Patient is provided with the discharge instructions notified to follow up with primary doctor in the next 2-3 days otherwise return to the er with any worsening symptoms. It is also recommended that you start a blood pressure log, taking a blood pressure in the morning, afternoon and evening and noted to percent this to your inspector process for possible adjustment of her medication as needed, Please note that this report is being documented using [employer] technology. This can lead to erroneous entry secondary to incorrect interpretation by the dictating instrument. Emelia Welch DO May 23, 2018 07:52
[2018-05-23 07:56] VITALS: BP 133/75
== END 2018-05-23 07:56 | disposition home or self-care (01) ==
LOC: EDUNIT# 07:21 → EMR 07:55
DX: I12.0 Hypertensive chronic kidney disease with stage 5 chronic kidney disease or end stage renal disease (principal); N18.6 End stage renal disease; Z99.2 Dependence on renal dialysis; Z87.01 Personal history of pneumonia (recurrent); Z91.010 Allergy to peanuts; Z91.018 Allergy to other foods
CPT/HCPCS: 99283

== ENCOUNTER 2018-11-16 19:55 | Emergency (ER) | payer MEDICARE, MEDICAID ==
[~2018-11-16] VITALS: Ht 167.6 cm; Wt 63.5 kg
--- NOTE | 2018-11-16 19:53 | NUR ---
ED Nurse Note: pt brought to ed by RA [id number] from home. pt c/o of dizziness when he got up. pt has left upper arm fistula, has hx of HTN. per pt he did take his BP meds today.
[2018-11-16 20:03] VITALS: BP 195/91
--- NOTE | 2018-11-16 20:04 | NUR ---
ED Nurse Note: per pt dialysis schedule is
--- NOTE | 2018-11-16 20:20 | Emergency Room Report ---
History of Present Illness General Chief Complaint: Hypertension Source: Patient, EMS Present Illness HPI Patient presents with complaints of dizziness He reports that he was at home he was walking around when he felt a sensation of dizziness Also felt some palpitation with this He did his blood pressure and it was elevated Patient is due for dialysis tomorrow denies any chest pain or shortness of breath denies any vomiting or diarrhea denies any fevers or chills Allergies: Coded Allergies: AVOCADO (Verified Allergy, Intermediate, 05/12/18) PEANUT (Verified Allergy, Intermediate, Rash, 05/12/18) CHEESE (Unverified Allergy, Unknown, 05/23/18) Dairy (Verified Allergy, Unknown, Rash, 05/12/18) MAYONNAISE (Verified Allergy, Unknown, rash, 05/12/18) Uncoded Allergies: PEANUTS (Allergy, Unknown, 05/23/18) Patient History Past Medical History: see triage record Pertinent Family History: none Reviewed Nursing Documentation: PMH: Agreed; PSxH: Agreed Nursing Documentation-PMH Hx Cardiac Problems: Yes Hx Hypertension: Yes Hx Pacemaker: No Hx Asthma: Yes Hx COPD: Yes - PNA Hx Diabetes: No Hx Cancer: No Hx Gastrointestinal Problems: Yes - Pancreatitis Hx Dialysis: Yes - M-W-F Last Hx Cerebrovascular Accident: No Hx Seizures: No Hx Weakness: Yes Hx Fatigue: Yes Review of Systems All Other Systems: negative except mentioned in HPI Physical Exam Vital Signs Date Time Temp Pulse Resp B/P (MAP) Pulse Ox O2 Delivery O2 Flow Rate FiO2 11/16/18 19:51 97.7 85 18 195/91 95 Room Air Sp02 EP Interpretation: reviewed, normal General Appearance: well appearing, no apparent distress Head: normocephalic, atraumatic Eyes: bilateral eye PERRL, bilateral eye EOMI ENT: hearing grossly normal, normal pharynx, TMs + canals normal, uvula midline Neck: full range of motion, supple, no meningismus, no bony tend Respiratory: lungs clear, normal breath sounds, no rhonchi, no respiratory distress, no retraction, no accessory muscle use Cardiovascular #1: normal peripheral pulses, regular rate, rhythm, no edema, no gallop, no JVD, no murmur Gastrointestinal: normal bowel sounds, non tender, soft, no mass, no organomegaly, non-distended, no guarding, no hernia, no pulsatile mass, no rebound Genitourinary: no CVA tenderness Musculoskeletal: normal inspection Neurologic: oriented x3, responsive, reamer hand III-XII nml as tested, motor strength/ tone normal, sensory intact Psychiatric: mood/affect normal Skin: normal color, no rash, warm/dry, palpation normal, other - Left upper arm AV shunt Lymphatic: normal inspection, no adenopathy Medical Decision Making Diagnostic Impression: Primary Impression: Hypertension ER Course Patient is a fairly complex patient with multiple differential to consideration including but not limited to cardiac cardiopulmonary and vascular emergencies Other differentials such as neurological and metabolic disorder entertained Patient's baseline blood work are appropriate patient's blood pressure remains appropriate for underlying diagnosis Potassium level was mildly elevated patient is due for dialysis tomorrow Otherwise EKG was appropriate without any signs of EKG changes Patient was given medications for this and will have dialysis tomorrow Contact was made with the patient's primary farm manager and he agrees with that dispo Labs Test 11/16/18 20:12 White Blood Count 3.6 K/UL (4.8-10.8) Red Blood Count 3.47 M/UL (4.70-6.10) Hemoglobin 10.0 G/DL (14.2-18.0) Hematocrit 30.5 % (42.0-52.0) Mean Corpuscular Volume 88 FL (80-99) Mean Corpuscular Hemoglobin 28.8 PG (27.0-31.0) Mean Corpuscular Hemoglobin Concent 32.7 G/DL (32.0-36.0) Red Cell Distribution Width 16.0 % (11.6-14.8) Platelet Count 82 K/UL (150-450) Mean Platelet Volume 5.0 FL (6.5-10.1) Neutrophils (%) (Auto) % (45.0-75.0) Lymphocytes (%) (Auto) % (20.0-45.0) Monocytes (%) (Auto) % (1.0-10.0) Eosinophils (%) (Auto) % (0.0-3.0) Basophils (%) (Auto) % (0.0-2.0) Sodium Level 139 MMOL/L (136-145) Potassium Level 5.9 MMOL/L (3.5-5.1) Chloride Level 101 MMOL/L (98-107) Carbon Dioxide Level 29 MMOL/L (21-32) Anion Gap 9 mmol/L (5-15) Blood Urea Nitrogen 57 mg/dL (7-18) Creatinine 10.3 MG/DL (0.55-1.30) Estimat Glomerular Filtration Rate 5.2 mL/min (>60) Glucose Level 116 MG/DL (74-106) Calcium Level 9.3 MG/DL (8.5-10.1) Total Bilirubin 0.6 MG/DL (0.2-1.0) Aspartate Amino Transf (AST/SGOT) 17 U/L (15-37) Alanine Aminotransferase (ALT/SGPT) 19 U/L (12-78) Alkaline Phosphatase 79 U/L (46-116) Total Protein 7.5 G/DL (6.4-8.2) Albumin 3.5 G/DL (3.4-5.0) Globulin 4.0 g/dL Albumin/Globulin Ratio 0.9 (1.0-2.7) EKG Diagnostic Results Rate: normal Rhythm: NSR ST Segments: no acute changes Rhythm Strip Diag. Results EP Interpretation: yes Rate: 60 Rhythm: NSR, no PVC's, no ectopy Last Vital Signs Date Time Temp Pulse Resp B/P (MAP) Pulse Ox O2 Delivery O2 Flow Rate FiO2 11/16/18 20:03 85 18 Room Air 11/16/18 20:03 97.7 195/91 95 Status: improved Disposition: HOME, SELF-CARE Condition: Improved Additional Instructions: Patient is provided with the discharge instructions notified to follow up with primary doctor in the next 2-3 days otherwise return to the er with any worsening symptoms. Please note that this report is being documented using [employer] technology. This can lead to erroneous entry secondary to incorrect interpretation by the dictating instrument. Emelia Welch DO Nov 16, 2018 20:20
[2018-11-16 20:26] LABS: HEMATOCRIT 30.5 % (42.0-52.0); MEAN CORPUSCULAR VOLUME 88 FL (80-99); PLATELET COUNT 82 K/UL (150-450); RED BLOOD COUNT 3.47 M/UL (4.70-6.10); WHITE BLOOD COUNT 3.6 K/UL (4.8-10.8)
[2018-11-16] MEDS ORDERED: AMLODIPINE (20:28)
[2018-11-16] MEDS ORDERED: ALBUTEROL HHN (20:28)
[2018-11-16] MEDS ORDERED: [UNRECOGNIZED DRUG - OTHER] (20:28)
[2018-11-16] MEDS ORDERED: CLONIDINE (20:28)
[2018-11-16 20:40] LABS: ANION GAP 9 mmol/L (5-15); BLOOD UREA NITROGEN 57 mg/dL (7-18); CALCIUM 9.3 MG/DL (8.5-10.1); CARBON DIOXIDE 29 MMOL/L (21-32); CHLORIDE 101 MMOL/L (98-107); CREATININE 10.3 MG/DL (0.55-1.30); POTASSIUM 5.9 MMOL/L (3.5-5.1); SODIUM 139 MMOL/L (136-145)
[2018-11-16 20:45] LABS: ALANINE AMINOTRANSFERASE 19 U/L (12-78); ALBUMIN 3.5 G/DL (3.4-5.0); ALBUMIN/GLOBULIN RATIO 0.9 (1.0-2.7); ALKALINE PHOSPHATASE 79 U/L (46-116); ASPARTATE AMINO TRANSFERASE 17 U/L (15-37); BILIRUBIN,TOTAL 0.6 MG/DL (0.2-1.0)
[2018-11-16] MEDS ORDERED: Sodium Polystyrene Sulfonate 15gm Powder ONE (20:50)
[2018-11-16] MEDS ORDERED: Sodium Polystyrene Sulfonate 15gm Powder ORAL ONE (21:00)
[2018-11-16 21:07] VITALS: BP 150/72
--- NOTE | 2018-11-16 21:08 | NUR ---
ER DISCHARGE NOTE: Patient is cleared to be discharged per ERMD, pt is aox4, on room air, with stable vital signs. pt was given dc instructions, pt was able to verbalize understanding, pt id band and iv site removed without complications. pt is able to ambulate with steady gait. pt took all belongings.
--- NOTE | 2018-11-17 15:56 | Cardiology Report ---
APPROVED REPORT EKG Measurement Heart [id number] Sinus rhythm with premature atrial complexes in a pattern of bigeminy Otherwise normal ECG
== END 2018-11-16 21:08 | disposition home or self-care (01) ==
LOC: EDBD 19:55 → EMR 20:27
DX: I10 Essential (primary) hypertension (principal); Z91.011 Allergy to milk products; Z91.010 Allergy to peanuts; Z91.018 Allergy to other foods; J44.9 Chronic obstructive pulmonary disease, unspecified; Z99.2 Dependence on renal dialysis
CPT/HCPCS: 36415; 80053; 85007; 85025; 93005; 99283

== ENCOUNTER 2018-11-19 04:08 | Emergency (ER) | payer MEDICARE, MEDICAID ==
[~2018-11-19] VITALS: Ht 170.2 cm; Wt 65.8 kg
[~2018-11-19 04:08] MED LIST changes: +ALBUTEROL HHN; +AMLODIPINE; +CLONIDINE; +[UNRECOGNIZED DRUG - OTHER]
--- NOTE | 2018-11-19 04:10 | NUR ---
ED Nurse Note: BIBA from home, with c/o high blood pressure.
--- NOTE | 2018-11-19 04:13 | Emergency Room Report ---
History of Present Illness General Source: Patient, EMS Present Illness HPI This is a 58-year-old male with a history of renal failure hemodialysis. He also has history of anxiety and schizoaffective disorder. He presents with chief complaint of headache and high blood pressure. Onset tonight. [place] some dizziness and was concerned and took his blood pressure. He called 911. He was here 3 days ago for the same. He scheduled for dialysis in 12 hours. No nausea no vomiting. No fever chills but no focal deficit. Better now. He has been here numerous times for this same complaint. Allergies: Coded Allergies: AVOCADO (Verified Allergy, Intermediate, 05/12/18) PEANUT (Verified Allergy, Intermediate, Rash, 05/12/18) CHEESE (Unverified Allergy, Unknown, 05/23/18) Dairy (Verified Allergy, Unknown, Rash, 05/12/18) MAYONNAISE (Verified Allergy, Unknown, rash, 05/12/18) Uncoded Allergies: PEANUTS (Allergy, Unknown, 05/23/18) Patient History Past Medical History: see triage record, old chart reviewed, HTN, psych hx, renal disease, dialysis Past Surgical History: other Pertinent Family History: none Social History: Denies: smoking Immunizations: other Reviewed Nursing Documentation: PMH: Agreed; PSxH: Agreed Nursing Documentation-PMH Hx Cardiac Problems: Yes Hx Hypertension: Yes Hx Pacemaker: No Hx Asthma: Yes Hx COPD: Yes - PNA Hx Diabetes: No Hx Cancer: No Hx Gastrointestinal Problems: Yes - Pancreatitis Hx Dialysis: Yes - ; LAST 11/06/18 Hx Cerebrovascular Accident: No Hx Seizures: No Hx Weakness: Yes Hx Fatigue: Yes Review of Systems Eye: Denies: eye pain, blurred vision ENT: Denies: ear pain, nose congestion, throat swelling Respiratory: Denies: cough, shortness of breath Cardiovascular: Denies: chest pain, palpitations Gastrointestinal: Denies: abdominal pain, diarrhea, nausea, vomiting Musculoskeletal: Denies: back pain, joint pain Skin: Denies: rash Neurological: Denies: headache, numbness Endocrine: Denies: increased thirst, increased urine Hematologic/Lymphatic: Denies: easy bruising All Other Systems: negative except mentioned in HPI Physical Exam vitals with high blood pressure Sp02 EP Interpretation: reviewed, normal General Appearance: well appearing, no apparent distress, alert Head: normocephalic, atraumatic Eyes: bilateral eye PERRL, bilateral eye EOMI ENT: hearing grossly normal, normal pharynx Neck: full range of motion, supple, no meningismus Respiratory: chest non-tender, lungs clear, normal breath sounds Cardiovascular #1: regular rate, rhythm, no murmur Gastrointestinal: normal bowel sounds, non tender, no mass, no organomegaly, no bruit, non-distended Musculoskeletal: back normal, gait/station normal, normal range of motion Psychiatric: anxious Skin: warm/dry Medical Decision Making Diagnostic Impression: Primary Impression: Hypertension Qualified Codes: I10 - Essential (primary) hypertension Additional Impression: Panic attack ER Course Patient presents with headache and high blood pressure. Worse in by his anxiety. He scheduled for dialysis at 4 PM today. Potassium is only 5.6. He stable to be discharged for dialysis as an outpatient. Status: improved Disposition: HOME, SELF-CARE Condition: Stable Additional Instructions: Go to dialysis today. Follow-up your doctor in 7 days. Return if symptom worsen. Lamin Howard MD November 19, 2018 04:13
[2018-11-19 04:30] VITALS: BP 207/93
[2018-11-19 04:36] LABS: HEMATOCRIT 32.6 % (42.0-52.0); HEMOGLOBIN 10.5 G/DL (14.2-18.0); MEAN CORPUSCULAR VOLUME 88 FL (80-99); PLATELET COUNT 89 K/UL (150-450); RED BLOOD COUNT 3.68 M/UL (4.70-6.10); RED CELL DISTRIBUTION WIDTH 15.8 % (11.6-14.8); WHITE BLOOD COUNT 4.7 K/UL (4.8-10.8)
[2018-11-19 04:43] LABS: ANION GAP 9 mmol/L (5-15); BLOOD UREA NITROGEN 54 mg/dL (7-18); CALCIUM 9.4 MG/DL (8.5-10.1); CARBON DIOXIDE 30 MMOL/L (21-32); CHLORIDE 100 MMOL/L (98-107); CREATININE 9.6 MG/DL (0.55-1.30); POTASSIUM 5.6 MMOL/L (3.5-5.1); SODIUM 139 MMOL/L (136-145)
--- NOTE | 2018-11-19 04:48 | NUR ---
ED Nurse Note: Patient relaxing with no complaints of pain. Family member at bedside.
[2018-11-19 04:49] VITALS: BP 175/83
[2018-11-19 05:20] VITALS: BP 153/74
--- NOTE | 2018-11-19 05:25 | NUR ---
ED Nurse Note: Patient cleared for discharge verbalized understanding of discharge instructions. Patient ID band removed and IV removed. Patient escorted to discharge desk prior to departing with all belongings and accompanied by his brother.
[2018-11-19 05:28] VITALS: BP 153/74
== END 2018-11-19 05:32 | disposition home or self-care (01) ==
LOC: EDUNIT# 04:08 → EDBD 04:08 → EMR 04:19
DX: I12.0 Hypertensive chronic kidney disease with stage 5 chronic kidney disease or end stage renal disease (principal); N18.6 End stage renal disease; F41.0 Panic disorder [episodic paroxysmal anxiety]; Z99.2 Dependence on renal dialysis; J44.9 Chronic obstructive pulmonary disease, unspecified; Z91.010 Allergy to peanuts; Z91.018 Allergy to other foods
CPT/HCPCS: 36415; 80048; 85007; 85025; 96374; 99284; J0360

== ENCOUNTER 2018-11-24 08:41 | Inpatient (IN) | payer MEDICARE, MEDICAID ==
[2018-11-24] VITALS (7 sets, daily range): BP systolic 131–228; BP diastolic 77–112
[~2018-11-24] VITALS: Ht 172.7 cm; Wt 26.8 kg
--- NOTE | 2018-11-24 08:41 | NUR ---
ED Nurse Note: Pt brought in by 68 from home due to SOB and coughing x 1 week. Noted phlegm with blood tinged color. Per EMS, pt is on dialysis //Fri. Pt unable to go to dialysis for today. Pt is AAO x4, follows commands with SOB upon exertion. Sats 89-90% in room air . Noted AV fistula on Left upper arm.
--- NOTE | 2018-11-24 09:18 | NUR ---
ED Nurse Note: Collected blood specimen then sent to lab.
[2018-11-24 09:33] LABS: ANION GAP 10 mmol/L (5-15); BASOPHILS % (AUTO) 0.7 % (0.0-2.0); BLOOD UREA NITROGEN 60 mg/dL (7-18); CALCIUM 9.7 MG/DL (8.5-10.1); CARBON DIOXIDE 28 MMOL/L (21-32); CHLORIDE 102 MMOL/L (98-107); CREATININE 10.9 MG/DL (0.55-1.30); EOSINOPHILS % (AUTO) 3.7 % (0.0-3.0); HEMATOCRIT 31.7 % (42.0-52.0); HEMOGLOBIN 10.2 G/DL (14.2-18.0); LYMPHOCYTES % (AUTO) 9.7 % (20.0-45.0); MEAN CORPUSCULAR VOLUME 88 FL (80-99); MONOCYTES % (AUTO) 5.1 % (1.0-10.0); NEUTROPHILS % (AUTO) 80.8 % (45.0-75.0); PLATELET COUNT 100 K/UL (150-450); POTASSIUM 5.6 MMOL/L (3.5-5.1); RED CELL DISTRIBUTION WIDTH 15.8 % (11.6-14.8); SODIUM 140 MMOL/L (136-145); WHITE BLOOD COUNT 7.3 K/UL (4.8-10.8)
--- NOTE | 2018-11-24 11:44 | Diagnostic Imaging Report ---
Indication: Dyspnea Comparison: 05/08/2018 A single view chest radiograph was obtained. Findings: Pulmonary vascular congestion noted with cephalized pulmonary vessels and interstitial opacities with cardiomegaly. In addition there are consolidative opacities in the perihilar regions and portions of the lung bases somewhat heterogeneous in distribution. The bones are unremarkable. There is a stent projected over the left infra clavicle region likely in the left subclavian vein. IMPRESSION: CHF/interstitial edema suspected. Patchy airspace opacities may be related to CHF or due to superimposed pneumonia. Correlate clinically.
--- NOTE | 2018-11-24 11:48 | NUR ---
ED Nurse Note: Pt made aware of his admission. Sinus tach on monitoring coordinator.
--- NOTE | 2018-11-24 13:06 | Emergency Room Report ---
History of Present Illness General Chief Complaint: Dyspnea/Respdistress Source: Patient, EMS Present Illness HPI Patient presents with complaints of palpitation and shortness of breath Patient is due for dialysis today at 4:00 patient's here with partner who reports that the patient has been appearing more short of breath Patient also reports palpitation sensation since this morning denies any vomiting or diarrhea denies any back or flank pain denies any recent travel Breathing is worse with laying flat Allergies: Coded Allergies: AVOCADO (Verified Allergy, Intermediate, 05/12/18) PEANUT (Verified Allergy, Intermediate, Rash, 05/12/18) CHEESE (Unverified Allergy, Unknown, 05/23/18) Dairy (Verified Allergy, Unknown, Rash, 05/12/18) MAYONNAISE (Verified Allergy, Unknown, rash, 05/12/18) Uncoded Allergies: PEANUTS (Allergy, Unknown, 05/23/18) Patient History Past Medical History: see triage record Pertinent Family History: none Reviewed Nursing Documentation: PMH: Agreed; PSxH: Agreed Nursing Documentation-PMH Past Medical History: No History, Except For Hx Cardiac Problems: Yes Hx Hypertension: Yes Hx Pacemaker: No Hx Asthma: Yes Hx COPD: Yes - PNA Hx Diabetes: No Hx Cancer: No Hx Gastrointestinal Problems: Yes - Pancreatitis Hx Dialysis: Yes - FRIDAY, FRIDAY, FRIDAY Hx Neurological Problems: No Hx Cerebrovascular Accident: No Hx Seizures: No Hx Weakness: Yes Hx Fatigue: Yes Review of Systems All Other Systems: negative except mentioned in HPI Physical Exam Vital Signs Date Time Temp Pulse Resp B/P (MAP) Pulse Ox O2 Delivery O2 Flow Rate FiO2 11/24/18 08:27 98.1 110 20 98 Room Air 11/24/18 09:00 169/78 2.0 Sp02 EP Interpretation: reviewed, normal General Appearance: well appearing, no apparent distress Head: normocephalic, atraumatic Eyes: bilateral eye PERRL, bilateral eye EOMI ENT: hearing grossly normal, normal pharynx, TMs + canals normal, uvula midline Neck: full range of motion, supple, no meningismus, no bony tend Respiratory: no respiratory distress, no retraction, no accessory muscle use, crackles - Bilaterally Cardiovascular #1: normal peripheral pulses, regular rate, rhythm, no edema, no gallop, no JVD, no murmur Gastrointestinal: normal bowel sounds, non tender, soft, no mass, no organomegaly, non-distended, no guarding, no hernia, no pulsatile mass, no rebound Genitourinary: no CVA tenderness Musculoskeletal: normal inspection Neurologic: oriented x3, responsive, fish straightener III-XII nml as tested, motor strength/ tone normal, sensory intact Psychiatric: mood/affect normal Skin: normal color, no rash, warm/dry, palpation normal, other - aV shunt left upper arm Lymphatic: normal inspection, no adenopathy Medical Decision Making Diagnostic Impression: Primary Impression: palpitation Additional Impressions: Renal failure shortness of breath ER Course Patient is a fairly complex patient with multiple differential to consideration including but not limited to cardiac cardiopulmonary and vascular emergencies Patient's x-ray imaging shows worsening congestion patient is due for his dialysis today however reports that he does not feel well enough to go as an outpatient case was discussed with patient's primary and patient will have further inpatient care and dialysis more urgently Labs Test 11/24/18 09:12 White Blood Count 7.3 K/UL (4.8-10.8) Red Blood Count 3.60 M/UL (4.70-6.10) Hemoglobin 10.2 G/DL (14.2-18.0) Hematocrit 31.7 % (42.0-52.0) Mean Corpuscular Volume 88 FL (80-99) Mean Corpuscular Hemoglobin 28.3 PG (27.0-31.0) Mean Corpuscular Hemoglobin Concent 32.1 G/DL (32.0-36.0) Red Cell Distribution Width 15.8 % (11.6-14.8) Platelet Count 100 K/UL (150-450) Mean Platelet Volume 6.1 FL (6.5-10.1) Neutrophils (%) (Auto) 80.8 % (45.0-75.0) Lymphocytes (%) (Auto) 9.7 % (20.0-45.0) Monocytes (%) (Auto) 5.1 % (1.0-10.0) Eosinophils (%) (Auto) 3.7 % (0.0-3.0) Basophils (%) (Auto) 0.7 % (0.0-2.0) Sodium Level 140 MMOL/L (136-145) Potassium Level 5.6 MMOL/L (3.5-5.1) Chloride Level 102 MMOL/L (98-107) Carbon Dioxide Level 28 MMOL/L (21-32) Anion Gap 10 mmol/L (5-15) Blood Urea Nitrogen 60 mg/dL (7-18) Creatinine 10.9 MG/DL (0.55-1.30) Estimat Glomerular Filtration Rate 4.9 mL/min (>60) Glucose Level 139 MG/DL (74-106) Calcium Level 9.7 MG/DL (8.5-10.1) Rhythm Strip Diag. Results EP Interpretation: yes Rate: 88 Rhythm: NSR, no PVC's, no ectopy Chest X-Ray Diagnostic Results Chest X-Ray Diagnostic Results : Chest X-Ray Ordered: Yes # of Views/Limited/Complete: 1 View Indication: Chest Pain EP Interpretation: Yes Interpretation: no consolidation, no effusion, no pneumothorax, other - Pulmonary congestion Impression: Other - Pulmonary congestion Electronically Signed by: Emelia Welch DO Last Vital Signs Date Time Temp Pulse Resp B/P (MAP) Pulse Ox O2 Delivery O2 Flow Rate FiO2 11/24/18 10:50 98.4 105 18 158/89 98 Nasal Cannula 2.0 Status: improved Disposition: ADMITTED INPATIENT Condition: Serious Scripts Sevelamer Carbonate (Renvela) 800 Mg Tablet 1600 MG ORAL THREE TIMES A DAY for 30 Days, #180 TAB Prov: Matt Chaney MD 11/26/18 Vitamin B Cmplx/Vit C/Folic AC (Nephro-[place] Tablet) 0.8 Mg Tablet 1 TAB ORAL DAILY for 30 Days, #30 TAB Prov: Matt Chaney MD 11/26/18 Quetiapine Fumarate* (SEROQUEL*) 200 Mg Tablet 400 MG ORAL BEDTIME for 30 Days, #30 TAB Prov: Matt Chaney MD 11/26/18 Pantoprazole* (PANTOPRAZOLE*) 40 Mg Tablet. 40 MG ORAL ACBREAKFAST for 30 Days, #30 TAB Prov: Matt Chaney MD 11/26/18 Losartan Potassium* (COZAAR*) 50 Mg Tablet 100 MG ORAL DAILY for 30 Days, #30 TAB Prov: Matt Chaney MD 11/26/18 Clonidine HCl (Clonidine HCl) 0.2 Mg Tablet 0.4 MG ORAL BID for 30 Days, #120 TAB Prov: Matt Chaney MD 11/26/18 Carvedilol (Coreg) 25 Mg Tablet 25 MG ORAL EVERY 12 HOURS for 30 Days, #60 TAB Prov: Matt Chaney MD 11/26/18 Azithromycin* (ZITHROMAX*) 250 Mg Tablet 250 MG ORAL DAILY for 4 Days, #4 TAB Prov: Matt Chaney MD 11/26/18 Aspirin* (ASPIRIN*) 81 Mg Tab.chew 81 MG ORAL DAILY for 30 Days, #30 TAB Prov: Matt Chaney MD 11/26/18 Amlodipine Besylate (Norvasc) 5 Mg Tablet 5 MG ORAL BID for 30 Days, #60 TAB Prov: Matt Chaney MD 11/26/18 Referrals: NOT CHOSEN IPA/,REFERRING (PCP) Patient Instructions: Palpitations, [id number] Emelia Welch DO November 24, 2018 13:06
--- NOTE | 2018-11-24 14:56 | NUR ---
ED Nurse Note: Dr Marino notified of BP 228/108 and pt asking for breathing treatment.
[2018-11-24] MEDS ORDERED: COZAAR25 MG ORAL (14:57)
[2018-11-24] MEDS ORDERED: HYDROCHLOROTHIA25 MG ORAL (14:57)
[2018-11-24] MEDS ORDERED: CATAPRES0.1 MG ORAL (14:57)
[2018-11-24] MEDS ORDERED: AMLODIPINE BESYL5 MG ORAL (14:57)
[2018-11-24] MEDS ORDERED: Albuterol/Ipratropium 3ml neb HHN ONE (15:00)
--- NOTE | 2018-11-24 16:00 | NUR ---
ED Nurse Note: PER DR. CORDON, PT. CAN GO UP FOR ADMISSION TO GO FOR DIALYSIS
--- NOTE | 2018-11-24 16:08 | NUR ---
ED Nurse Note: Report givento Arcadio PRIETO of telemetry unit.
--- NOTE | 2018-11-24 16:20 | NUR ---
NURSE NOTES: Pt received from IDA Moseley alert and oriented x4 primarily Chinese-speaking with some Ukrainian. Brother - Álvaro Harris at bedside. IV site asymptomatic and patent, on saline lock. Currently on 15L nonrebreather mask, saturating at 93%. VSS - BP 190/95, HR 116, temp 97.0, pain 7/10 on anterior abdomen. No wounds noted upon admission. Pt has Left upper arm AV fistula - bruit and thrill present and palpable. Belongings all with patient upon transfer, including $90 in [place]. Pt did not want money to be sent down to safe, opted to keep money at bedside. RN advised pt of risks and pt verbalized understanding. Bed in lowest position, HOB elevated. Belongings and call light within reach. monitoring specialist on - Sinus Tachy 106. Will continue to monitor pt.
--- NOTE | 2018-11-24 16:35 | NUR ---
NURSE NOTES: Left message for Dr. Chaney for admission orders. Currently awaiting call back.
--- NOTE | 2018-11-24 18:09 | NUR ---
NURSE NOTES: Called Dr. Chaney for admission orders again. Dr. Calabrese answered and stated that he will have Dr. Chaney call.
--- NOTE | 2018-11-24 18:39 | NUR ---
NURSE NOTES: Received admission orders from Dr. Chaney, will carry out orders and monitor pt. - HOLD ALL BP MEDS UNTIL AFTER HD TODAY AND TOMORROW. - Meds: coreg 25 mg BID PO (hold for HR below 60), aspirin 81 mg daily PO, seroquel 400 mg qhs PO, Tylenol 650 mg q4h PO PRN for mild pain and temp, losartan 100 mg daily PO (hold for SBP below 125), clonidine 0.4 mg BID PO (hold for SBP below 140), amlodipine 5 mg BID PO (hold for SBP below 125), sevelamir 1600 mg TID PO w/ food, nephrovite 1 tablet daily PO, Protonix 40 mg PO daily, Heparin 5000 units q12 hr SQ. - CBC, CMP, Trop in AM - 2d echo in AM - EKG in AM - Physician Consult - Dr. Miller for cardio - Ambulate and place pt on chair. - Full code - renal diet - O2 therapy to maintain O2 sat above 95%.
--- NOTE | 2018-11-24 19:10 | NUR ---
NURSE NOTES: Pt titrated down from 15L nonrebreather mask to 4L O2 NC, saturating at 98%. No s/s of SOB.
--- NOTE | 2018-11-24 19:17 | NUR ---
HAND-OFF: Report given to IDA Torres. No acute s/s of distress noted.
[2018-11-24] MEDS ORDERED: cloNIDine 0.2mg Tab ORAL PRN (20:45)
[2018-11-24] MEDS: Heparin 5000 units/ml inj SUBQ SCH (21:00)
[2018-11-24] MEDS: Carvedilol 25mg Tab ORAL SCH (21:00)
[2018-11-24] MEDS: QUEtiapine 200mg tab ORAL SCH (21:27)
--- NOTE | 2018-11-24 22:45 | History and Physical Report ---
DATE OF ADMISSION: 11/24/2018 CHIEF COMPLAINT/REASON FOR HOSPITALIZATION: The patient is admitted with elevated blood pressure, cough, shortness of breath, CHF. HISTORY OF PRESENT ILLNESS: The patient is well known to me. He is a 58-year-old man with end-stage renal disease, on dialysis for many years. He presents with multiple emergency room visits and a history of anxiety and elevated blood pressure on this admission. He in the past was normotensive, off of all blood pressure medications and recently he has had to increase his blood pressure medications. He has had in the past episodes bronchitis. From this admission, he comes in with chest x-ray appearing like CHF. He has some dyspnea and cough, but no fever or chills. No typical angina although he has had atypical chest pains associated with this cough. ALLERGIES: None known. SURGERIES: Left arm AV fistula. HABITS: He is a nondrinker and nonsmoker. No use of illicit drugs. HOME MEDICATIONS: Include sevelamer 2 tablets t.i.d., multivitamins, losartan 100 mg daily, amlodipine 5 mg b.i.d., clonidine 0.4 mg b.i.d., omeprazole 40 mg daily, Seroquel 400 mg at bedtime, and he is on protocols for anemia in the dialysis unit. SYSTEM REVIEW: HEAD, EYES, EARS, NOSE, AND THROAT: There is mild decreased visual acuity. Hearing is good. ENDOCRINE: No diabetes or thyroid disease. PULMONARY: History of bronchitis in the past. He has used inhalers intermittently. CARDIAC: Recent worsening hypertension. Does have some cardiomyopathy. He has had prior echos. No definite DC. GASTROINTESTINAL: History of gastritis intermittently, recently better. No nausea, vomiting, hematochezia, or melena. GENITOURINARY: He makes little urine. NEUROLOGIC: No CVAs or seizures. PSYCHIATRIC: History of mood disorder, likely schizoaffective. PHYSICAL EXAMINATION: GENERAL: The patient is chronically ill appearing man, alert. VITAL SIGNS: Temperature 98, pulse 98, respirations 16, blood pressure 167/77, O2 saturation 99%. HEAD, EYES, EARS, NOSE, AND THROAT: Sclerae are nonicteric. Ocular motions intact in all directions. Oral mucosa moist. NECK: No adenopathy or thyroid enlargement. LUNGS: Few faint rhonchi. HEART: Rhythm is regular. I hear no murmur. ABDOMEN: Soft without organomegaly or masses. EXTREMITIES: No edema, cyanosis, or clubbing. There is a large tortuous AV graft in the left upper arm. IMPRESSION: 1. Congestive heart failure, acute on chronic, likely diastolic dysfunction. 2. End-stage renal disease. 3. Bronchitis. 4. Anemia of chronic kidney disease. 5. Borderline hyperkalemia of 5.6. 6. Possible underlying ischemic heart disease. PLAN: The patient will be dialyzed serially for fluid overload. We will titrate his blood pressure medicines. Try to avoid severe hypotension. Cardiac consultation. Matt Chaney M.D. DR: SHEREE JOB#: [id number] CC:
[2018-11-25] VITALS: BP 135/73
[2018-11-25 04:00] VITALS: BP 144/77
--- NOTE | 2018-11-25 04:15 | Consultation ---
DATE OF CONSULTATION: 11/24/2018 CARDIOLOGY CONSULTATION CONSULTING PHYSICIAN: Harrison Miller M.D. REQUESTING PHYSICIAN: Matt Chaney M.D. REASON FOR CONSULTATION: Uncontrolled hypertension. HISTORY OF PRESENT ILLNESS: This 58-year-old male with end-stage renal disease, on hemodialysis. He was admitted to the hospital with uncontrolled blood pressure. He has also been anxious. He was also noting shortness of breath. Denies clinical signs of congestive heart failure. He has had some cough as well, but no fevers or chills and has had chest pain associated with cough only. PAST MEDICAL HISTORY: Includes hypertension, end-stage renal disease, chronic bronchitis, depression with agitation, anemia of chronic kidney disease, and left upper extremity AV fistula. SOCIAL HISTORY: Negative for smoking, alcohol, or substance abuse. MEDICATIONS: Reviewed and reconciled. ALLERGIES: None known. REVIEW OF SYSTEMS: A 10-point review of systems performed. All systems negative other than noted above. PHYSICAL EXAMINATION: GENERAL: Ill-appearing, but no signs of acute respiratory distress. VITAL SIGNS: Blood pressure is high 211/112, heart rate 130, respiratory rate 23, and afebrile. HEENT: Conjunctivae pink. Oropharynx clear. NECK: Supple. Jugular venous pressure elevated. LUNGS: Bilateral rales. CARDIAC: Regular rhythm and rate. Normal S1 and S2 with a fourth heart sound and a 1/6 systolic murmur at the apex. ABDOMEN: Soft and nontender. EXTREMITIES: There is a bruit over the left upper extremity and there is no edema. LABORATORY AND DIAGNOSTIC DATA: Chest x-ray reveals interstitial edema/congestive heart failure. Superimposed pneumonia with patchy airspace disease is noted. White count 7.3 and hemoglobin 10.2. Potassium 5.6. EKG revealed sinus rhythm. Minimal voltage for left ventricular hypertrophy. IMPRESSION: 1. Hypertensive urgency. 2. End-stage renal disease with hyperkalemia. 3. Acute on chronic diastolic congestive heart failure. 4. Pleuritic chest pain, possible acute pulmonary infection. PLAN: 1. Hemodialysis with ultrafiltration. 2. Upward titration of antihypertensives with multidrug regimen. 3. Echocardiogram if not recently done. Harrison Miller M.D. DR: WILL JOB#: [id number] CC:
[2018-11-25] MEDS ORDERED: Heparin Sod 1000 units/ml 10ml IV PRN (06:00)
[2018-11-25 07:19] LABS: BASOPHILS % (AUTO) 1.1 % (0.0-2.0); EOSINOPHILS % (AUTO) 4.1 % (0.0-3.0); HEMATOCRIT 28.7 % (42.0-52.0); HEMOGLOBIN 9.4 G/DL (14.2-18.0); LYMPHOCYTES % (AUTO) 21.3 % (20.0-45.0); MEAN CORPUSCULAR VOLUME 88 FL (80-99); NEUTROPHILS % (AUTO) 65.5 % (45.0-75.0); PLATELET COUNT 111 K/UL (150-450); RED BLOOD COUNT 3.25 M/UL (4.70-6.10); WHITE BLOOD COUNT 4.8 K/UL (4.8-10.8)
--- NOTE | 2018-11-25 07:27 | NUR ---
HAND-OFF: Report given to IDA Chin. Endorsed plan of care.
--- NOTE | 2018-11-25 07:27 | NUR ---
NURSE NOTES: Pt received from Brian PRIETO. AOX4 Hungarian-speaking with some Mauritanian. IV site IN RAC 20G SL asymptomatic and patent. On 3L NC, saturating at 95%. Pt has Left upper arm AV fistula - bruit and thrill present and palpable. Bed on lowest position and locked. No c/o pain. No signs of distress noted. Will continue to plan of care.
[2018-11-25 08:00] VITALS: BP 145/69
--- NOTE | 2018-11-25 08:30 | NUR ---
NURSE NOTES: RN called from Lab for critical result of Troponin-i with 0.553. Pt denied chest pain or sob. Dr. Miller paged for result. Left a voice message and awaiting for reply.
[2018-11-25 08:31] LABS: ALANINE AMINOTRANSFERASE 12 U/L (12-78); ALBUMIN 2.9 G/DL (3.4-5.0); ALBUMIN/GLOBULIN RATIO 0.7 (1.0-2.7); ALKALINE PHOSPHATASE 71 U/L (46-116); ANION GAP 11 mmol/L (5-15); ASPARTATE AMINO TRANSFERASE 19 U/L (15-37); BILIRUBIN,TOTAL 0.6 MG/DL (0.2-1.0); BLOOD UREA NITROGEN 51 mg/dL (7-18); CALCIUM 8.8 MG/DL (8.5-10.1); CARBON DIOXIDE 28 MMOL/L (21-32); CHLORIDE 103 MMOL/L (98-107); SODIUM 141 MMOL/L (136-145)
[2018-11-25] MEDS: Nephrovite tab (Rena-Vite) ORAL SCH (08:33)
[2018-11-25] MEDS: Aspirin Baby 81mg ORAL SCH (08:33)
[2018-11-25] MEDS: Heparin 5000 units/ml inj SUBQ SCH ×2 (08:34→21:00)
[2018-11-25] MEDS: cloNIDine 0.2mg Tab ORAL SCH ×2 (09:00→22:02)
[2018-11-25] MEDS: Carvedilol 25mg Tab ORAL SCH ×2 (09:00→23:35)
[2018-11-25] MEDS: Losartan 50mg tab ORAL SCH (09:00)
--- NOTE | 2018-11-25 10:00 | NUR ---
NURSE NOTES: No call back from Dr. Miller and awaiting for reply
--- NOTE | 2018-11-25 11:12 | NUR ---
CASE MANAGEMENT:REVIEW 58 YR OLD MALE BIBA FROM HOME CC: SOB AND COUGH. MISSED DIALYSIS SI: DYSPNEA. RENAL FAILURE 98.0 110 20 210/110 98% ON RA H/H-10.2/31.7 PLT-100 K+5.6 BUN+60 CR+10.9 SI: NORVASC PO X1 CLONIDINE PO X1 DUONEB HHN X1 CHEST XRAY : TO TELEMETRY 11/25/18 SI: HYPERTENSIVE URGENCY. AC/CHR CHF CHEST PAIN. ESRD ON HD 99.4 81 22 145/69 96% ON 3L/NC TROPONIN(+) 0.553 IS: ASA PO QD COZAAR PO QD CLONIDINE PO BID NORVASC PO BID PROTONIX PO QAM COREG PO Q12 HEPARIN SQ Q12 : TELEMETRY STATUS INTERQUAL CRITERIA MET
[2018-11-25 12:00] VITALS: BP 144/82
--- NOTE | 2018-11-25 14:00 | Cardiology Report ---
APPROVED REPORT EXAM: Two-dimensional and M-mode echocardiogram with Doppler and color Doppler. INDICATION SOB M-Mode DIMENSIONS IVSd0.9 (0.7-1.1cm)Left Atrium (MM)4.8 (1.6-4.0cm) LVDd5.5 (3.5-5.6cm)Aortic Root2.5 (2.0-3.7cm) PWd0.9 (0.7-1.1cm)Aortic Cusp Exc.2.1 (1.5-2.0cm) LVDs3.6 (2.5-4.0cm) PWs1.4 cm Normal left ventricular chamber size, systolic function and wall motion. Left ventricular ejection fraction estimated to be 55 %. No evidence of left ventricular hypertrophy. Anterior Echo-free space, may be due to pericardial fat or effusion. Moderate left atrial enlargement. Right cardiac chamber sizes are within normal limits. Focal aortic valve sclerosis with adequate cusp excursion. Thickened mitral valve leaflets with normal excursion. Mitral annulus and aortic root calcification. Pulmonic valve not well visualized. Normal tricuspid valve structure. IVC measured at 1.9 cm with slight physiologic collapse suggestive of increased RA pressure. A color flow and spectral Doppler study was performed and revealed: Trace aortic regurgitation. Mild mitral regurgitation. Mitral inflow indicates normal left ventricular diastolic function. Mild tricuspid regurgitation. Tricuspid systolic velocities suggests peak right ventricular systolic pressure of 51 mmHg, consistent with moderate pulmonary hypertension. Trace pulmonic regurgitation present.
--- NOTE | 2018-11-25 14:24 | Cardiology Report ---
APPROVED REPORT EKG Measurement Heart [id number] Normal sinus rhythm Minimal voltage criteria for LVH, may be normal variant Borderline ECG
--- NOTE | 2018-11-25 14:44 | Cardiology Report ---
APPROVED REPORT EKG Measurement Heart [id number] Normal sinus rhythm Normal ECG
[2018-11-25 16:00] VITALS: BP 180/92
--- NOTE | 2018-11-25 17:47 | Nephrology Progress Note ---
Assessment/Plan Problem List: (1) shortness of breath (2) ESRD on dialysis (3) Chest pain (4) Bronchitis Plan no chest pain today, still cough, add zithromax, dialysis for fluid removal, echo nl ef, trop .558 cardiology seeing Subjective Constitutional: Reports: weakness HEENT: Reports: no symptoms Genitourinary: Reports: no symptoms Neurologic/Psychiatric: Reports: no symptoms Objective Objective Last 24 Hour Vital Signs Date Time Temp Pulse Resp B/P (MAP) Pulse Ox O2 Delivery O2 Flow Rate FiO2 11/25/18 16:00 98.6 88 20 180/92 (121) 97 11/25/18 12:00 77 11/25/18 12:00 97.7 82 20 144/82 (102) 97 11/25/18 09:00 86 145/69 11/25/18 09:00 145/69 11/25/18 09:00 145/69 11/25/18 09:00 86 145/69 11/25/18 09:00 Nasal Cannula 3.0 11/25/18 08:00 99.4 86 22 145/69 (94) 96 11/25/18 08:00 81 11/25/18 04:00 97.9 90 18 144/77 (99) 98 11/25/18 04:00 90 11/25/18 00:00 97.0 92 18 135/73 (93) 98 11/25/18 00:00 92 11/24/18 21:00 Nasal Cannula 3.0 11/24/18 20:00 97.0 87 18 131/81 (98) 95 11/24/18 20:00 87 Intake and Output 11/24/18 11/25/18 19:00 07:00 Intake Total 0 ml Output Total 3000 ml Balance 0 ml -3000 ml Intake Oral 0 ml Output Hemodialysis UF 3000 ml # Bowel Movements 1 Laboratory Tests 11/25/18 05:55: White Blood Count 4.8, Red Blood Count 3.25L, Hemoglobin 9.4L, Hematocrit 28.7L , Mean Corpuscular Volume 88, Mean Corpuscular Hemoglobin 29.0, Mean Corpuscular Hemoglobin Concent 32.8, Red Cell Distribution Width 16.0H, Platelet Count 111L, Mean Platelet Volume 5.8L, Neutrophils (%) (Auto) 65.5, Lymphocytes (%) (Auto) 21.3, Monocytes (%) (Auto) 8.0, Eosinophils (%) (Auto) 4.1H, Basophils (%) (Auto) 1.1, Sodium Level 141, Potassium Level 5.0, Chloride Level 103, Carbon Dioxide Level 28, Anion Gap 11, Blood Urea Nitrogen 51H, Creatinine 10.0H, Estimat Glomerular Filtration Rate 5.4, Glucose Level 110H, Calcium Level 8.8, Total Bilirubin 0.6, Aspartate Amino Transf (AST/SGOT) 19, Alanine Aminotransferase (ALT/SGPT) 12, Alkaline Phosphatase 71, Troponin I 0.553H, Total Protein 6.9, Albumin 2.9L, Globulin 4.0, Albumin/Globulin Ratio 0.7L Height (Feet): 5 Height (Inches): 8.00 Weight (Pounds): 57 General Appearance: WD/WN, no apparent distress EENT: normal ENT inspection Neck: normal alignment, supple Cardiovascular: normal rate, systolic murmur Respiratory/Chest: rhonchi - bilaterally Abdomen: non tender Extremities: other - no edema 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
--- NOTE | 2018-11-25 18:10 | NUR ---
NURSE NOTES: Hemodialysis nurse came and started HD now. Per HD nurse hold all meds for 6pm and administer when HD done. Meds are Clonidine 0.4mg PO, Amlodipine 5mg, Renvela 1600mg, Azithromycin 250mg. Will endorse coming night shift supervisor nurse.
[2018-11-25] MEDS ORDERED: Heparin Sod 1000 units/ml 10ml IV SCH (18:30)
--- NOTE | 2018-11-25 19:05 | NUR ---
HAND-OFF: Report given to Brian PRIETO. Pt remains stable..
--- NOTE | 2018-11-25 19:06 | NUR ---
NURSE NOTES: Received report from IDA Chin. Pt is awake and resting in bed. Pt in no acute distress. Receiving dialysis at bedside. IV site intact. Bed in lowest position and call light within reach. Will continue with plan of care.
[2018-11-25 20:00] VITALS: BP 176/89
[2018-11-25] MEDS: Azithromycin 250mg tab ORAL SCH (22:06)
[2018-11-25] MEDS: QUEtiapine 200mg tab ORAL SCH (23:40)
[2018-11-26] VITALS: BP 133/75
[2018-11-26 04:00] VITALS: BP 109/53
--- NOTE | 2018-11-26 04:15 | Progress Note ---
DATE: 11/25/2018 CARDIOLOGY PROGRESS NOTE SUBJECTIVE: The patient has no chest pain. Some cough persists. Congestion noted. Antimicrobials initiated and dialysis with fluid removal completed. Troponin level has decreased from 0.558 to 0.305. OBJECTIVE: VITAL SIGNS: Blood pressure 180/92, earlier 144/82, pulse 82, and respirations 20. LUNGS: Clear. CARDIAC: Regular. Normal S1, S2 with a fourth heart sound. ABDOMEN: Soft. EXTREMITIES: No edema. DIAGNOSTIC DATA: Echocardiogram with normal ejection fraction and mild mitral regurgitation. No pulmonary hypertension. IMPRESSION: 1. Hypertensive urgency. 2. Acute myocardial ischemia secondary to above. 3. Diastolic dysfunction with acute on chronic congestive heart failure. 4. End-stage renal disease with hyperkalemia, resolved. 5. Acute bronchitis and pleuritic chest pain. PLAN: 1. Continue titration and optimization of antihypertensive regimen. 2. Anti-platelet and anti-lipid therapy. 3. Antimicrobials. 4. Respiratory hygiene. 5. Hemodialysis with ultrafiltration. Harrison Miller M.D. DR: MARY ELLEN JOB#: [id number] CC:
[2018-11-26 07:08] LABS: BASOPHILS % (AUTO) 0.9 % (0.0-2.0); EOSINOPHILS % (AUTO) 6.5 % (0.0-3.0); HEMATOCRIT 28.1 % (42.0-52.0); HEMOGLOBIN 9.2 G/DL (14.2-18.0); LYMPHOCYTES % (AUTO) 23.3 % (20.0-45.0); MEAN CORPUSCULAR VOLUME 88 FL (80-99); MONOCYTES % (AUTO) 9.1 % (1.0-10.0); NEUTROPHILS % (AUTO) 60.2 % (45.0-75.0); PLATELET COUNT 139 K/UL (150-450); RED BLOOD COUNT 3.21 M/UL (4.70-6.10); RED CELL DISTRIBUTION WIDTH 16.1 % (11.6-14.8); WHITE BLOOD COUNT 4.3 K/UL (4.8-10.8)
[2018-11-26 07:10] LABS: ANION GAP 7 mmol/L (5-15); BLOOD UREA NITROGEN 50 mg/dL (7-18); CALCIUM 8.9 MG/DL (8.5-10.1); CARBON DIOXIDE 30 MMOL/L (21-32); CHLORIDE 103 MMOL/L (98-107); CREATININE 8.8 MG/DL (0.55-1.30); POTASSIUM 4.8 MMOL/L (3.5-5.1); SODIUM 140 MMOL/L (136-145)
[2018-11-26 07:27] LABS: CHOLESTEROL 102 MG/DL (< 200); CKMB 1.3 NG/ML (0.0-3.6); CREATINE KINASE 57 U/L (26-308); HDL CHOLESTEROL 37 MG/DL (40-60); TRIGLYCERIDES 79 MG/DL (30-150)
[2018-11-26] MEDS ORDERED: PANTOPRAZOLE SO40 MG ORAL (07:38)
[2018-11-26] MEDS ORDERED: SEROQUEL200 MG ORAL (07:38)
[2018-11-26] MEDS ORDERED: NEPHROVITE1 TAB ORAL (07:38)
[2018-11-26] MEDS ORDERED: COREG25 MG ORAL (07:38)
[2018-11-26] MEDS ORDERED: ASPIRIN81 MG ORAL (07:38)
[2018-11-26] MEDS ORDERED: ZITHROMAX250 MG ORAL (07:38)
[2018-11-26] MEDS ORDERED: NORVASC5 MG ORAL (07:38)
[2018-11-26] MEDS ORDERED: RENVELA800 MG ORAL (07:38)
[2018-11-26] MEDS ORDERED: COZAAR50 MG ORAL (07:38)
[2018-11-26] MEDS ORDERED: CLONIDINE 0.2M0.2 MG ORAL (07:38)
[2018-11-26 08:00] VITALS: BP 109/59
--- NOTE | 2018-11-26 08:18 | NUR ---
NURSE NOTES: Pt received from IDA Torres alert and oriented x4 with no acute s/s of distress noted. On 3L NC, saturating at 97%. IV site asymptomatic and patent. Bed in lowest position, call light and belongings within reach. Brother - Álvaro Harris at bedside.
[2018-11-26] MEDS: Aspirin Baby 81mg ORAL SCH (08:49)
[2018-11-26] MEDS: Carvedilol 25mg Tab ORAL SCH (08:49)
[2018-11-26] MEDS: Losartan 50mg tab ORAL SCH (08:50)
[2018-11-26] MEDS: cloNIDine 0.2mg Tab ORAL SCH (08:50)
[2018-11-26] MEDS: Heparin 5000 units/ml inj SUBQ SCH (08:51)
[2018-11-26] MEDS: Nephrovite tab (Rena-Vite) ORAL SCH (08:51)
[2018-11-26] MEDS: Azithromycin 250mg tab ORAL SCH (08:51)
[2018-11-26] MEDS ORDERED: Imdur 30mg tab ORAL SCH (09:00)
--- NOTE | 2018-11-26 09:45 | NUR ---
NURSE NOTES: Dr. Chaney assessed pt at bedside and placed order for discharge. RN clarified if pt will receive one more HD before discharge. Per Dr. Chaney, no need for another HD, pt will be disharged. Will carry out orders and continue to monitor pt.
--- NOTE | 2018-11-26 11:35 | NUR ---
RD ASSESSMENT & RECOMMENDATIONS SEE CARE ACTIVITY FOR COMPLETE ASSESSMENT DAILY ESTIMATED NEEDS: Needs based on ESRD on HD, underweight 59.9 30-35 kcals/kg 3750-9578 total kcals 1.2-1.8 g protein/kg 72-108 g total protein Fluid per MD, on HD NUTRITION DIAGNOSIS: Increased kcal and pro needs r/t underweight status and ESRD as evidenced by pt is 89% of [place] Body Weight w/ generalized mild to moderate wasting, pt on HD. CURRENT DIET: Renal PO DIET RECOMMENDATIONS: RENAL DIET + NEPRO x1 daily ADDITIONAL RECOMMENDATIONS: 1) Obtain a standing weight 2) Ad snacks BID on b/w meals 3) Add Nepro x1 daily (425 kcal/19g pro each) 4) Monitor po intake and tolerance
--- NOTE | 2018-11-26 11:53 | NUR ---
NURSE NOTES: RN educated pt and brother (Álvaro Harris) about discharge and medication information, both verbalized understanding. Educated on diagnosis and hospital stay, both verbalized understanding. IV site d/maria victoria and wristband removed as per protocol. No wounds noted upon discharge. Per brother and patient, they will finish their lunch first and then head out for discharge. Will hold off on cab call until ready. Belongings all with patient upon transfer including 90$ in [place], signed by brother Álvaro Harris while patient agreed.
[2018-11-26 12:00] VITALS: BP 142/75
--- NOTE | 2018-11-26 13:15 | NUR ---
NURSE NOTES: RN called [employer] with taxi voucher. Per Brooks, taxi will arrive within 15 minutes.
--- NOTE | 2018-11-26 13:35 | NUR ---
NURSE NOTES: RN spoke with [facility] who stated that the cab is on [address] and will be here soon.
--- NOTE | 2018-11-26 14:05 | NUR ---
NURSE NOTES: Chantale KESSLER spoke with [facility] [employer] who stated that the taxi is still on [address].
--- NOTE | 2018-11-26 14:19 | NUR ---
NURSE NOTES: Pt discharged in safe condition with Tory GARLAND to drop off patient outside of hospital. RN educated pt on discharge and medication information, pt verbalized understanding. IV site d/maria victoria and wristband removed as per protocol. No wounds noted upon discharge.
--- NOTE | 2018-11-26 14:20 | NUR ---
NURSE NOTES: Tory GARLAND dropped off patient outside of hospital. Per pt, he will just find his own transportation with his brother.
--- NOTE | 2018-11-27 02:30 | Discharge Summary ---
DATE OF ADMISSION: 11/24/2018 DATE OF DISCHARGE: 11/26/2018 PERTINENT HISTORY: The patient has end-stage renal disease and hypertension, presents with elevated blood pressure, shortness of breath, and congestive heart failure on chest x-ray. PERTINENT PHYSICAL FINDINGS: LUNGS: Show few faint rhonchi. HEART: Regular rhythm. ABDOMEN: Soft. EXTREMITIES: No edema. COURSE IN THE HOSPITAL: The patient received serial dialysis for fluid removal. He felt much better. He had a cough and some bronchitis. He was given Zithromax. He had borderline elevation of troponin 0.553, 0.305, 0.216, but no typical angina. He was seen by Dr. Harrison Miller in Cardiology consultation, possibly demand ischemia versus abnormal labs secondary to his end-stage renal disease. His medications were just for hypertension and myocardial ischemia and he felt better. On the day of discharge, his lungs were clear. Heart, regular rhythm. Extremities, no edema. He felt better and he was discharged home in stable condition. FINAL DIAGNOSES: 1. Congestive heart failure, acute on chronic with ejection fraction 55% and diastolic dysfunction. 2. Hypertensive urgency. 3. End-stage renal disease. 4. Acute bronchitis. DISCHARGE DISPOSITION: Renal diet. DISCHARGE MEDICATIONS: Per the discharge medication list. FOLLOWUP: Follow up by Dr. Chaney. Matt Chaney M.D. DR: ANGELICA JOB#: [id number] CC:
--- NOTE | 2018-11-27 03:15 | Progress Note ---
DATE: 11/26/2018 CARDIOLOGY PROGRESS NOTE SUBJECTIVE: The patient without chest pain or shortness of breath following hemodialysis. OBJECTIVE: VITAL SIGNS: Yesterday, blood pressure range 109/59 to 142/75, heart rate 60s, respiratory rate 20, and afebrile. Room air oxygen sats are adequate. LUNGS: Clear. CARDIAC: Regular. Normal S1, S2 with a fourth heart sound. ABDOMEN: Soft. Palpable bruit over fistula. EXTREMITIES: No edema. LABORATORY DATA: White count 4.3 and hemoglobin 9.2. Potassium 4.8. Troponin 0.216. IMPRESSION: 1. Hypertensive urgency, now resolved. 2. Acute myocardial ischemia and possible non-ST elevation infarction, uncomplicated. 3. Acute on chronic diastolic congestive heart failure, now compensated following hemodialysis with excessive ultrafiltration. 4. End-stage renal disease with hyperkalemia, now resolved. 5. Acute bronchitis with pleuritic chest pain. RECOMMENDATIONS: 1. Maintain current anti-platelet, anti-lipid, and anti-anginal/antihypertensive regimen. 2. Hold parameters with dialysis for antihypertensive drugs discussed. 3. Outpatient myocardial perfusion scan to follow once respiratory symptoms have recovered to baseline. Harrison Miller M.D. DR: MARY ELLEN JOB#: [id number] CC:
== END 2018-11-26 15:16 | disposition home or self-care (01) | DRG 291 ==
LOC: EDBD 08:41 → EMR 09:05 → 2E 11:34 → EDBEDREQ 15:00
PROC: 5A1D70Z Performance of Urinary Filtration, Intermittent, Less than 6 Hours Per Day (ICD-10-PCS; principal; 2018-11-24)
DX: I13.2 Hypertensive heart and chronic kidney disease with heart failure and with stage 5 chronic kidney disease, or end stage renal disease (principal); N18.6 End stage renal disease; I50.33 Acute on chronic diastolic (congestive) heart failure; I24.9 Acute ischemic heart disease, unspecified; D63.1 Anemia in chronic kidney disease; I16.0 Hypertensive urgency; J20.9 Acute bronchitis, unspecified; Z99.2 Dependence on renal dialysis; R07.81 Pleurodynia; E87.5 Hyperkalemia
CPT/HCPCS: 36415; 71045; 80048; 80053; 80061; 82550; 82553; 84484; 85025; 87081; 93005; 93306; 94640; 94664; 99285; J7620

== ENCOUNTER 2019-01-02 13:17 | Inpatient (IN) | payer MEDICARE, MEDICAID ==
[~2019-01-02] VITALS: Ht 170.2 cm; Wt 56.7 kg
[2019-01-02] VITALS (8 sets, daily range): BP systolic 131–195; BP diastolic 79–101
[~2019-01-02 13:17] MED LIST changes: +AMLODIPINE BESYL5 MG ORAL; +ASPIRIN81 MG ORAL; +CATAPRES0.1 MG ORAL; +CLONIDINE 0.2M0.2 MG ORAL; +COREG25 MG ORAL; +COZAAR25 MG ORAL; +COZAAR50 MG ORAL; +HYDROCHLOROTHIA25 MG ORAL; +NEPHROVITE1 TAB ORAL; +NORVASC5 MG ORAL; +PANTOPRAZOLE SO40 MG ORAL; +RENVELA800 MG ORAL; +SEROQUEL200 MG ORAL
--- NOTE | 2019-01-02 13:19 | NUR ---
ED Nurse Note: PT BROUGHT IN BY AMBULANCE RA 68 DUE TO SOB X 1 HOUR AND COUGHING X 3 DAYS. ALSO C/O HEADACHE. PT MISSED HIS DIALYSIS TODAY. USUALLY ON /TH/SAT. AV FISTULA NOTED ON LEFT UPPER ARM. PT IS AAO X4, FOLLOWS COMMANDS. SATS 97-100% IN ROOM AIR.
[2019-01-02] MEDS ORDERED: Albuterol ud Inhalation HHN ONE (13:30)
[2019-01-02] MEDS ORDERED: Ipratropium 0.02% Inh Soln 2.5ml UD HHN ONE (13:30)
[2019-01-02] MEDS ORDERED: Nitroglycerin Subl 0.4mg tab SL PRN ×2 (14:15)
[2019-01-02] MEDS: Albuterol ud Inhalation HHN SCH ×3 (14:15→14:45)
[2019-01-02] MEDS ORDERED: LORazepam 1mg tab ORAL PRN (14:15)
[2019-01-02] MEDS: Ipratropium 0.02% Inh Soln 2.5ml UD HHN SCH ×3 (14:15→14:45)
[2019-01-02] MEDS ORDERED: Miralax 17gm pkt ORAL PRN (14:15)
[2019-01-02] MEDS ORDERED: Zolpidem 5mg tab ORAL PRN (14:15)
[2019-01-02] MEDS ORDERED: Nitroglycerin 50mg/250ml btl 250 ML IV SCH (14:30)
--- NOTE | 2019-01-02 14:30 | Diagnostic Imaging Report ---
EXAM: XR Chest, 1 View CLINICAL HISTORY: COUGH TECHNIQUE: Frontal view of the chest. COMPARISON: Chest x-ray, 11/24/18 FINDINGS: Lungs: Bilateral perihilar somewhat confluent airspace opacities that may be pulmonary edema, worse than prior study. Cannot exclude infection. Pleural space: No pleural effusion or pneumothorax. Heart: Unremarkable. No cardiomegaly. Mediastinum: Unremarkable. Bones/joints: Unremarkable. Vasculature: Left subclavian vascular stent. IMPRESSION: Bilateral perihilar somewhat confluent airspace opacities that may be pulmonary edema, worse than prior study. Cannot exclude infection.
[2019-01-02 14:48] LABS: HEMATOCRIT 34.5 % (42.0-52.0); MEAN CORPUSCULAR VOLUME 89 FL (80-99); PLATELET COUNT 90 K/UL (150-450); RED BLOOD COUNT 3.87 M/UL (4.70-6.10); RED CELL DISTRIBUTION WIDTH 15.1 % (11.6-14.8)
--- NOTE | 2019-01-02 14:55 | Emergency Room Report ---
History of Present Illness General Chief Complaint: Upper Respiratory Illness Source: Patient, EMS (Jai Castellanos MD) Present Illness HPI 58-year-old male presents ED for evaluation. Brought in by EMS from home. Complaining of shortness of breath and coughing up blood since yesterday. Denies chest pain. History of end-stage renal disease on dialysis. Is scheduled for dialysis today. Denies fevers or chills. Denies sick contacts or recent travel. No other aggravating or relieving factors. Denies any other associated symptoms (Jai Castellanos MD) Allergies: Coded Allergies: AVOCADO (Verified Allergy, Intermediate, 05/12/18) PEANUT (Verified Allergy, Intermediate, Rash, 05/12/18) CHEESE (Unverified Allergy, Unknown, 05/23/18) Dairy (Verified Allergy, Unknown, Rash, 05/12/18) MAYONNAISE (Verified Allergy, Unknown, rash, 05/12/18) Uncoded Allergies: PEANUTS (Allergy, Unknown, 05/23/18) Patient History Past Medical History: HTN, asthma, renal disease, dialysis Past Surgical History: none Pertinent Family History: none Social History: Denies: smoking, alcohol use, drug use Immunizations: UTD Reviewed Nursing Documentation: PMH: Agreed; PSxH: Agreed (Jai Castellanos MD) Nursing Documentation-PMH Past Medical History: No History, Except For Hx Cardiac Problems: Yes Hx Hypertension: Yes Hx Pacemaker: No Hx Asthma: Yes Hx COPD: Yes - PNA Hx Diabetes: No Hx Cancer: No Hx Gastrointestinal Problems: No Hx Dialysis: Yes - FRIDAY, FRIDAY, FRIDAY Hx Neurological Problems: No Hx Cerebrovascular Accident: No Hx Seizures: No Hx Weakness: Yes Hx Fatigue: Yes (Jai Castellanos MD) Review of Systems All Other Systems: negative except mentioned in HPI (Jai Castellanos MD) Physical Exam Vital Signs Date Time Temp Pulse Resp B/P (MAP) Pulse Ox O2 Delivery O2 Flow Rate FiO2 01/02/19 13:09 99.0 92 18 136/82 (100) 99 Room Air 01/02/19 13:55 21 Sp02 EP Interpretation: reviewed, normal General Appearance: alert, GCS 15, non-toxic, mild distress Head: normocephalic Eyes: bilateral eye normal inspection, bilateral eye PERRL ENT: normal ENT inspection Neck: normal inspection Respiratory: accessory muscle use, rhonchi Cardiovascular #1: regular rate, rhythm, no edema Gastrointestinal: normal bowel sounds, non tender, soft, non-distended, no guarding, no rebound Rectal: deferred Genitourinary: no CVA tenderness Musculoskeletal: normal inspection Neurologic: other - anxious Psychiatric: anxious Skin: normal inspection Lymphatic: normal inspection (Jai Castellanos MD) Procedures Critical Care Time Critical Care Time Total Critical Care Time: 60 min bedside evaluation and treatment excludes procedures (EKG). Reason for critical care: Pulmonary edema, hypertensive crisis Possible complications: hypotension, hypertension, CO, shock, arrhythmias, metabolic acidosis, end organ damage, respiratory failure. Interventions: Nitroglycerin, nitroglycerin drip, hydralazine, BiPAP, emergent dialysis, repeated evaluations Course: Patient presented with respiratory distress. Evidence of pulmonary edema and hypertension. Aggressive treatment with nitroglycerin sublingually as well as nitroglycerin drip. Repeated evaluations for titration of nitroglycerin drip. Control of blood pressure and improvement on BiPAP. Able to remove BiPAP and nitroglycerine. Repeated need for restart of nitroglycerin drip as hydralazine unable to adequately control blood pressure. Arrangement for emergent dialysis. Improvement on dialysis with being able to remove nitroglycerin drip. His hemoptysis AFB sent to lab. Advisement of need for respiratory isolation. Consultations: nursing staff, EMS, family, dialysis nurse Performed by: Dr. Sparks Tolerated well condition = critical but improving (Harrison Sparks MD) Medical Decision Making Diagnostic Impression: Primary Impression: ESRD on dialysis Additional Impressions: Pneumonia Pulmonary edema Hemoptysis ER Course Please see above note. Patient on NTG drip. I actively titrated the drip to improve dyspnea and blood pressure. Improving and blood pressure 156/65 on 20 mg/hr Needs dialysis Improved on NTG. Will try to wean off NTG. Hydralazine ordered. Will also attempt off BIPAP. Off of NTG and BIPAP. Hydralazine held due to low BP. BP elevated and asking for mask. NTG and hydralazine ordered. Hydralazine repeat. Still HTN. Restart NTG drip. 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 Improving with dialysis. Able to stop nitroglycerin drip. Awaiting admission to telemetry due to elevated troponin. Continued hypertension after dialysis. Labetalol ordered. Laboratory Tests Test 01/02/19 14:26 White Blood Count 12.0 K/UL (4.8-10.8) H Red Blood Count 3.87 M/UL (4.70-6.10) L Hemoglobin 11.0 G/DL (14.2-18.0) L Hematocrit 34.5 % (42.0-52.0) L Mean Corpuscular Volume 89 FL (80-99) Mean Corpuscular Hemoglobin 28.5 PG (27.0-31.0) Mean Corpuscular Hemoglobin Concent 32.0 G/DL (32.0-36.0) Red Cell Distribution Width 15.1 % (11.6-14.8) H Platelet Count 90 K/UL (150-450) L Mean Platelet Volume 5.5 FL (6.5-10.1) L Neutrophils (%) (Auto) % (45.0-75.0) Lymphocytes (%) (Auto) % (20.0-45.0) Monocytes (%) (Auto) % (1.0-10.0) Eosinophils (%) (Auto) % (0.0-3.0) Basophils (%) (Auto) % (0.0-2.0) Differential Total Cells Counted 100 Neutrophils % (Manual) 52 % (45-75) Lymphocytes % (Manual) 29 % (20-45) Monocytes % (Manual) 7 % (1-10) Eosinophils % (Manual) 9 % (0-3) H Basophils % (Manual) 2 % (0-2) Band Neutrophils 1 % (0-8) Platelet Estimate Decreased L Platelet Morphology Normal Polychromasia 1+ Anisocytosis 1+ Sodium Level 140 MMOL/L (136-145) Potassium Level 5.8 MMOL/L (3.5-5.1) H Chloride Level 102 MMOL/L (98-107) Carbon Dioxide Level 27 MMOL/L (21-32) Anion Gap 11 mmol/L (5-15) Blood Urea Nitrogen 63 mg/dL (7-18) H Creatinine 10.6 MG/DL (0.55-1.30) H Estimate Glomerular Filtration Rate 5.1 mL/min (>60) Glucose Level 194 MG/DL (74-106) H Lactic Acid Level 2.70 mmol/L (0.4-2.0) H Calcium Level 10.1 MG/DL (8.5-10.1) Total Bilirubin 0.9 MG/DL (0.2-1.0) Aspartate Amino Transferase (AST) 17 U/L (15-37) Alanine Aminotransferase (ALT) 15 U/L (12-78) Alkaline Phosphatase 71 U/L (46-116) Total Creatine Kinase 60 U/L (26-308) Creatine Kinase MB 1.2 NG/ML (0.0-3.6) Creatine Kinase MB Relative Index 2.0 Troponin I 0.037 ng/mL (0.000-0.056) Pro-B-Type Natriuretic Peptide > 94811 pg/mL (0-125) H Total Protein 8.4 G/DL (6.4-8.2) H Albumin 3.7 G/DL (3.4-5.0) Globulin 4.7 g/dL Albumin/Globulin Ratio 0.8 (1.0-2.7) L (Harrison Sparks MD) EKG Diagnostic Results Rate: tachycardiac Rhythm: NSR ST Segments: no acute changes ASA given to the pt in ED: No (Jai Castellanos MD) Rhythm Strip Diag. Results EP Interpretation: yes Rhythm: NSR, no PVC's, no ectopy (Jai Castellanos MD) EP Interpretation: yes Rhythm: NSR, no PVC's, no ectopy (Harrison Sparks MD) Chest X-Ray Diagnostic Results Chest X-Ray Diagnostic Results : Chest X-Ray Ordered: Yes # of Views/Limited/Complete: 1 View Indication: Shortness of Breath EP Interpretation: Yes Interpretation: no pneumothorax, other - cardiomegaly. intersitial congestion Impression: Other - pulmonary edema vs infiltrate Electronically Signed by: electronically signed by Jai Castellanos MD (Jai Castellanos MD) Last Vital Signs Date Time Temp Pulse Resp B/P (MAP) Pulse Ox O2 Delivery O2 Flow Rate FiO2 01/02/19 14:20 112 24 100 Full Face 80 01/02/19 14:16 208/148 01/02/19 13:26 99.0 Status: improved (Jai Castellanos MD) Last Vital Signs Date Time Temp Pulse Resp B/P (MAP) Pulse Ox O2 Delivery O2 Flow Rate FiO2 01/03/19 02:00 98.9 78 18 171/86 (114) 98 01/03/19 01:00 Venturi Mask 45 Status: improved (Harrison Sparks MD) Disposition: ADMITTED INPATIENT Condition: Critical Referrals: Matt Chaney MD (PCP) Jai Castellanos MD Jan 02, 2019 14:55 Harrison Sparks MD Jan 02, 2019 15:59
[2019-01-02 15:02] LABS: ANION GAP 11 mmol/L (5-15); BLOOD UREA NITROGEN 63 mg/dL (7-18); CALCIUM 10.1 MG/DL (8.5-10.1); CARBON DIOXIDE 27 MMOL/L (21-32); CHLORIDE 102 MMOL/L (98-107); CREATININE 10.6 MG/DL (0.55-1.30); POTASSIUM 5.8 MMOL/L (3.5-5.1); SODIUM 140 MMOL/L (136-145)
[2019-01-02] MEDS ORDERED: Vancomycin 1 GM in NS 275 ML IV ONE (15:15)
[2019-01-02 15:28] LABS: ALANINE AMINOTRANSFERASE 15 U/L (12-78); ALBUMIN 3.7 G/DL (3.4-5.0); ALBUMIN/GLOBULIN RATIO 0.8 (1.0-2.7); ALKALINE PHOSPHATASE 71 U/L (46-116); ASPARTATE AMINO TRANSFERASE 17 U/L (15-37); BILIRUBIN,TOTAL 0.9 MG/DL (0.2-1.0); CKMB 1.2 NG/ML (0.0-3.6); CREATINE KINASE 60 U/L (26-308)
--- NOTE | 2019-01-02 15:40 | NUR ---
ED Nurse Note: pt coghing up blood pt placed on bi-pap very restless rt at beside ermd also. pt given nitro sublingual by nurse discharge planner . I started nitro -drip at 10 mcg and was verbally instructed by Dr. Sparks to increase dose to 20 to bring down pt's BP. pt appears more calm on monitor brother at bedside . pt awaiting icu bed will monitor.
--- NOTE | 2019-01-02 17:57 | NUR ---
ED Nurse Note: pt more calm vss nitro drip d/c'd at 1730. Verbal order to hold apresaline and to d/c bi-pap rt at bedside now . ssputum culture sent to lab.
[2019-01-02] MEDS ORDERED: Nitroglycerin Subl 0.4mg tab SL STA (19:03)
--- NOTE | 2019-01-02 19:34 | NUR ---
HAND-OFF: Report given to Arminda.
--- NOTE | 2019-01-02 19:39 | NUR ---
ED Nurse Note: hydralazine that was held earlier was given to pm IDA Hilliard to be given now per dr. bal's order.
--- NOTE | 2019-01-02 19:54 | NUR ---
ED Nurse Note: NTG IV started again at 6ml/min per Dr Sparks, BP 208/ 122
--- NOTE | 2019-01-02 20:39 | NUR ---
ED Nurse Note: Dialysis started at bedside.
[2019-01-02] MEDS ORDERED: Heparin 5000 units/ml inj SUBQ SCH (21:00)
--- NOTE | 2019-01-02 22:19 | NUR ---
ED Nurse Note: NTG drip stopped per Dr. Sparks. BP 154/86
--- NOTE | 2019-01-02 22:53 | NUR ---
is here now .
--- NOTE | 2019-01-02 23:00 | NUR ---
ED Nurse Note: RECEIVED REPORT FROM IDA VILLALBA AND ASSUMED CARE, PT GOING TO CT. VSS.
--- NOTE | 2019-01-02 23:00 | NUR ---
HAND-OFF: Report given to IDA Alonso.
--- NOTE | 2019-01-02 23:05 | NUR ---
Joya joy in [facility] - 01/02/19 at 2328 by ORLIN [facility] Resendiz Note:
[2019-01-03] VITALS (7 sets, daily range): BP systolic 132–179; BP diastolic 76–92
--- NOTE | 2019-01-03 | NUR ---
ED Nurse Note: pt cleaned and changed, extra warm blanket provided for comfort, pt advised to notify staff if needed assist.
--- NOTE | 2019-01-03 00:25 | NUR ---
ED Nurse Note: REPORT GIVEN TO RN NORTH FROM TELE. RECEIVING RN STATES SEND PT 20-30 MIN, NO BED IN THE ROOM.
--- NOTE | 2019-01-03 01:00 | NUR ---
ED Nurse Note: PT TRANSFERRED TO TELE, PT ON WOUND NURSE, VSS, NSR, O2=96% ON VENTURIMASK 45%, IV INTACT AND PATENT, BELONGINGS SENT W/ PT W/ COMPLETED LIST, MRSA CULTURE SWAB SENT, PT REFUSED CRE/VRE SWAB, RECEIVING RN INFORMED, ENDORSED CARE TO RN NORTH.
--- NOTE | 2019-01-03 01:10 | NUR ---
NURSE NOTES: Received report from Davin Peña RN regarding patient's arrival on the TELE floor from ED with patient's brother. Head to toe assessment initiated and noted. No skin issues or breakdown observed. Belongings checked and noted with ED RN at bedside. No complaints of acute pain or distress noted. Safety precaution in place. Needs and wants anticipated and attended. New orders received and carried out per Bridget Chaney MD. Will continue to monitor.
[2019-01-03] MEDS ORDERED: Labetalol 5mg/ml 20ml vial IV ONE (01:15)
--- NOTE | 2019-01-03 03:45 | Consultation ---
DATE OF CONSULTATION: 01/02/2019 CARDIOLOGY CONSULTATION CONSULTING PHYSICIAN: Harrison Miller M.D. REQUESTING PHYSICIAN: Matt Chaney M.D. REASON FOR CONSULTATION: Congestive heart failure in the setting of end-stage renal disease. HISTORY OF PRESENT ILLNESS: This is a 58-year-old male. He has had shortness of breath and hemoptysis for the past day or 2 with no chest pain or palpitations. He has end-stage renal disease and is on hemodialysis Friday, , and Friday. He has not had any recent respiratory illnesses or changes in his care . He was seen in the emergency room and noted to have significant congestive heart failure prompting hospitalization. The patient was last hospitalized here about a month ago and at that time, had uncontrolled hypertension. His medications were adjusted and echocardiogram at that time revealed normal ejection fraction with concentric hypertrophy and a diastolic relaxation abnormality. PAST MEDICAL HISTORY: Includes hypertension, asthma, end-stage renal disease, left upper extremity AV fistula, anemia of chronic kidney disease, and depression with agitation. MEDICATIONS: Reviewed and reconciled. ALLERGIES: Peanuts. FAMILY HISTORY: Noncontributory. SOCIAL HISTORY: Negative for smoking, alcohol, or substance abuse. REVIEW OF SYSTEMS: All systems negative other than noted above. PHYSICAL EXAMINATION: VITAL SIGNS: Blood pressure 180/92, heart rate 100, respirations 21, and afebrile. HEENT: Conjunctivae pink. Sclerae are anicteric. Oropharynx clear. NECK: Supple. LUNGS: Bilateral rales. CARDIAC: Regular. Normal S1, S2 with a fourth heart sound. ABDOMEN: Soft. EXTREMITIES: No edema. Palpable bruit over AV fistula. LABORATORY DATA: White count 12 and hemoglobin 11. Lactic acid is 2.7. Potassium 5.8, BUN 63, and creatinine 10.6. Pro-natriuretic peptide 35,000. Troponin 0.037. IMPRESSION: 1. Acute on chronic diastolic congestive heart failure. 2. Malignant hypertension. 3. Hyperkalemia. 4. Lactic acidosis. PLAN: 1. Hemodialysis with extensive ultrafiltration. 2. Titrate and optimize antihypertensive control. 3. BiPAP support as needed. 4. Follow up laboratory studies. Harrison Miller M.D. DR: MARY ELLEN JOB#: [id number] CC:
--- NOTE | 2019-01-03 03:53 | NUR ---
NURSE NOTES: Patient in bed asleep with no S/S of distress at this time. Will continue to monitor.
[2019-01-03] MEDS: Albuterol/Ipratropium 3ml neb HHN SCH ×6 (04:55→23:42)
[2019-01-03] MEDS: HydrALAZINE 50mg tab ORAL SCH ×4 (06:43→23:52)
[2019-01-03] MEDS: Nitroglycerin 2% oint pkt TOPIC SCH ×3 (06:44→18:00)
--- NOTE | 2019-01-03 07:27 | Pulmonology Progress Note ---
Assessment/Plan Assessment/Plan hemotpysis RF on HD abnormal CXR continue to RO for AFB CT chest ordered and pending HD TTH S o2 nebs recommend IDeval wound cre Subjective Constitutional: Reports: no symptoms HEENT: Repors: no symptoms Respiratory: Reports: productive cough, hemoptysis Cardiovascular: Reports: no symptoms Gastrointestinal/Abdominal: Reports: no symptoms Allergies: Coded Allergies: AVOCADO (Verified Allergy, Intermediate, 05/12/18) PEANUT (Verified Allergy, Intermediate, Rash, 05/12/18) CHEESE (Unverified Allergy, Unknown, 05/23/18) Dairy (Verified Allergy, Unknown, Rash, 05/12/18) MAYONNAISE (Verified Allergy, Unknown, rash, 05/12/18) Uncoded Allergies: PEANUTS (Allergy, Unknown, 05/23/18) Subjective no further hemoptysis this am on o2 ? night sweats no cp nv or bleeding completed HD last night Objective Last 24 Hour Vital Signs Date Time Temp Pulse Resp B/P (MAP) Pulse Ox O2 Delivery O2 Flow Rate FiO2 01/03/19 06:59 80 20 100 Nasal Cannula 2.0 28 01/03/19 06:49 77 20 97 Nasal Cannula 2.0 28 01/03/19 06:49 77 20 97 Nasal Cannula 2.0 28 01/03/19 06:44 170/92 01/03/19 06:43 170/92 01/03/19 04:55 Venturi Mask 45 01/03/19 04:55 Venturi Mask 45 01/03/19 04:00 10.0 40 01/03/19 04:00 98.6 100 20 170/92 (118) 94 01/03/19 04:00 99 01/03/19 02:00 98.9 78 18 171/86 (114) 98 01/03/19 01:50 Venturi Mask 10.0 01/03/19 01:30 102 01/03/19 01:00 98.2 100 18 170/91 96 Venturi Mask 45 01/03/19 00:00 97.8 108 20 179/89 96 Venturi Mask 45 01/02/19 23:00 98.0 111 28 187/90 96 Venturi Mask 45 01/02/19 20:36 108 29 195/100 95 Simple Mask 01/02/19 19:48 177/98 01/02/19 19:46 177/98 01/02/19 19:19 177/98 01/02/19 18:30 100 21 180/92 99 Nasal Cannula 01/02/19 17:54 98.0 78 18 131/79 100 Bi-pap 01/02/19 16:48 92 24 100 Full Face 80 01/02/19 16:30 94 21 183/89 100 Bi-pap 01/02/19 15:30 98.0 92 23 166/86 100 Bi-pap 01/02/19 15:00 89 30 100 Full Face 80 01/02/19 14:30 208/148 01/02/19 14:30 99 25 195/101 100 Bi-pap 01/02/19 14:20 112 24 100 Full Face 80 01/02/19 14:18 120 24 99 Bi-Pap 80 01/02/19 14:16 208/148 01/02/19 13:55 102 24 100 Room Air 21 01/02/19 13:55 102 24 100 Room Air 21 01/02/19 13:26 99.0 96 18 170/88 99 Room Air 01/02/19 13:19 92 18 Room Air 01/02/19 13:09 99.0 92 18 136/82 (100) 99 Room Air Intake and Output 01/02/19 01/03/19 19:00 07:00 Intake Total 350 ml Balance 350 ml Intake IV Total 350 ml General Appearance: cachetic Respiratory/Chest: rhonchi Cardiovascular: normal rate, regular rhythm Abdomen: soft, non tender, no organomegaly Neurologic/Psychiatric: alert Laboratory Tests 01/02/19 14:26: White Blood Count 12.0H, Red Blood Count 3.87L, Hemoglobin 11.0L, Hematocrit 34.5L, Mean Corpuscular Volume 89, Mean Corpuscular Hemoglobin 28.5, Mean Corpuscular Hemoglobin Concent 32.0, Red Cell Distribution Width 15.1H, Platelet Count 90L, Mean Platelet Volume 5.5L, Neutrophils (%) (Auto) , Lymphocytes (%) (Auto) , Monocytes (%) (Auto) , Eosinophils (%) (Auto) , Basophils (%) (Auto) , Differential Total Cells Counted 100, Neutrophils % ( Manual) 52, Lymphocytes % (Manual) 29, Monocytes % (Manual) 7, Eosinophils % ( Manual) 9H, Basophils % (Manual) 2, Band Neutrophils 1, Platelet Estimate DecreasedL, Platelet Morphology Normal, Polychromasia 1+, Anisocytosis 1+, Sodium Level 140, Potassium Level 5.8H, Chloride Level 102, Carbon Dioxide Level 27, Anion Gap 11, Blood Urea Nitrogen 63H, Creatinine 10.6H, Estimat Glomerular Filtration Rate 5.1, Glucose Level 194H, Lactic Acid Level 2.70H, Calcium Level 10.1, Total Bilirubin 0.9, Aspartate Amino Transf (AST/SGOT) 17, Alanine Aminotransferase (ALT/SGPT) 15, Alkaline Phosphatase 71, Total Creatine Kinase 60, Creatine Kinase MB 1.2, Creatine Kinase MB Relative Index 2.0, Troponin I 0.037, Pro-B-Type Natriuretic Peptide > 35992P, Total Protein 8.4H, Albumin 3.7, Globulin 4.7, Albumin/Globulin Ratio 0.8L 01/02/19 17:35: Lactic Acid Level 0.60L Current Medications Medications (Trade) Dose Ordered Sig/Paul Route PRN Reason Start Time Stop Time Status Last Admin Dose Admin Acetaminophen (Tylenol) 650 mg Q4H PRN ORAL Mild Pain (Pain Scale 1-3) 01/02/19 14:15 02/01/19 14:14 01/03/19 01:58 Acetaminophen (Tylenol) 650 mg Q4H PRN ORAL fever (temp>100.5F) 01/02/19 14:15 02/01/19 14:14 Albuterol/ Ipratropium (Albuterol/ Ipratropium) 3 ml Q4HRT HHN 01/03/19 03:00 01/08/19 02:59 01/03/19 06:48 Amlodipine Besylate (Norvasc) 5 mg BID ORAL 01/03/19 09:00 02/02/19 08:59 Aspirin (ASA) 81 mg DAILY ORAL 01/03/19 09:00 02/02/19 08:59 Carvedilol (Coreg) 25 mg EVERY 12 HOURS ORAL 01/03/19 09:00 02/02/19 08:59 Cinacalcet (Sensipar) 30 mg DAILY ORAL 01/03/19 09:00 02/02/19 08:59 Clonidine HCl (Catapres tab) 0.4 mg BID ORAL 01/03/19 09:00 02/02/19 08:59 Heparin Sodium (Porcine) (Heparin 5000 units/ml) 5,000 units EVERY 12 HOURS SUBQ 01/02/19 21:00 02/01/19 20:59 UNV Heparin Sodium (Porcine) (Heparin Sod 1000 units/ml 10ml) 2,000 unit ONCE PRN IV HD USE 01/03/19 08:00 01/03/19 23:59 Hydralazine HCl (Apresoline) 50 mg Q6HR ORAL 01/03/19 06:00 02/02/19 05:59 01/03/19 06:43 Lorazepam (Ativan) 1 mg Q4H PRN ORAL For Anxiety 01/02/19 14:15 01/09/19 14:14 Losartan Potassium (Cozaar) 100 mg DAILY ORAL 01/03/19 09:00 02/02/19 08:59 Nitroglycerin (Nitro-Bid) 1 inch TID@0600,1200,1800 TOPIC 01/03/19 06:00 02/02/19 05:59 01/03/19 06:44 Nitroglycerin (Ntg) 0.4 mg Q5M PRN SL Prn Chest Pain 01/02/19 14:15 02/01/19 14:14 Pantoprazole (Protonix) 40 mg DAILY ORAL 01/03/19 09:00 02/02/19 08:59 Polyethylene Glycol (Miralax) 17 gm DAILYPRN PRN ORAL Constipation 01/02/19 14:15 02/01/19 14:14 Quetiapine Fumarate (SEROquel) 400 mg BEDTIME ORAL 01/03/19 21:00 02/02/19 20:59 Sevelamer Carbonate (Renvela) 1,600 mg THREE TIMES A DAY ORAL 01/03/19 09:00 02/02/19 08:59 Sodium Chloride 1,000 ml @ 500 mls/hr Q2H PRN IVLG sbp<90 during hd 01/03/19 08:00 01/03/19 23:59 Vitamin B Complex/ Vit C/Folic Acid (Nephrovite) 1 tab DAILY ORAL 01/03/19 09:00 02/02/19 08:59 Zolpidem Tartrate (Ambien) 5 mg DAILYPRN PRN ORAL Insomnia 01/02/19 14:15 01/09/19 14:14 Adeola Muller DO Jan 03, 2019 07:27
--- NOTE | 2019-01-03 07:31 | Consultation ---
Consult Note Assessment/Plan #[id number] pt seen in ER 01/02/19 10 PM hemoptysis RF on HD sob ?night sweats hypoxemia RO for TB Hd and volume removal CT chset check abg x 3 sputum cs recommend ID Adeola Hernandez DO Jan 03, 2019 07:31
--- NOTE | 2019-01-03 07:38 | NUR ---
HAND-OFF: Report given to Rafael Donahue RN. Patient in bed with no S/S of distress noted. Endorsed plan of care.
[2019-01-03] MEDS ORDERED: Heparin Sod 1000 units/ml 10ml IV PRN (08:00)
[2019-01-03] MEDS: Aspirin Baby 81mg ORAL SCH (09:39)
[2019-01-03] MEDS: Sensipar 30mg Tab ORAL SCH (09:39)
[2019-01-03] MEDS: Losartan 50mg tab ORAL SCH (09:40)
[2019-01-03] MEDS: Carvedilol 25mg Tab ORAL SCH ×2 (09:40→22:11)
[2019-01-03] MEDS: Nephrovite tab (Rena-Vite) ORAL SCH (09:41)
[2019-01-03] MEDS: cloNIDine 0.2mg Tab ORAL SCH ×2 (09:41→18:00)
--- NOTE | 2019-01-03 10:00 | NUR ---
NURSE NOTES: Dr. Chaney made aware of Troponin level. Visited Pt. Confirmed no need to contact Dr. Miller regarding Troponin level.
[2019-01-03] MEDS: Flonase Nasal Inhaler 16gm NASAL SCH (11:40)
--- NOTE | 2019-01-03 14:03 | Cardiology Report ---
APPROVED REPORT EKG Measurement Heart [id number] Sinus tachycardia Possible Left atrial enlargement Borderline ECG
--- NOTE | 2019-01-03 16:00 | History and Physical Report ---
DATE OF ADMISSION: 01/02/2019 CHIEF COMPLAINT AND REASON FOR HOSPITALIZATION: The patient admitted with shortness of breath, hemoptysis, end-stage renal disease. HISTORY OF PRESENT ILLNESS: The patient is well known to me. He has been on hemodialysis for many years. He was hospitalized in November of this year with shortness of breath and congestive heart failure which improved with dialysis. He presents with increasing shortness of breath and bilateral infiltrates consistent with congestive heart failure and/or infiltrates. He has also had some hemoptysis. No definite fever, chills, or purulent sputum. He states that he has prior outpatient PPD, it was negative and he has had no exposure to TB. He has been on dialysis for many years although over the last 2 years he has developed hypertension wheare as he was not hypertensive prior. Recent echocardiogram showed ejection fraction of 55% and mild pulmonary hypertension. PSYCHIATRIC HISTORY: He has a history of some delusional disorder likely schizoaffective. PAST SURGICAL HISTORY: AV access left arm and subsequent stenting. ALLERGIES: None known. HOME MEDICATIONS: Include albuterol inhaler as needed, amlodipine 5 mg b.i.d., clonidine 0.4 mg twice a day, losartan 100 mg daily, Renvela 2 to 3 tablets each meal, Nephro-[place] 1 daily, Protonix 40 mg or omeprazole 40 once a day, Seroquel 400 mg at bedtime. HABITS: He is a nondrinker and nonsmoker. No use of illicit drugs. SYSTEM REVIEW: HEAD, EYES, EARS, NOSE, AND THROAT: Vision is somewhat impaired. He is awaiting Ophthalmology consultation. Hearing is good. ENDOCRINE: No diabetes or thyroid disease. PULMONARY: History of episodes of recurrent bronchitis improved with bronchodilators. CARDIAC: No angina or TN. He has had atypical chest pains in the past. He had hypertension recent as above. GASTROINTESTINAL: History of gastritis intermittently. No hematochezia or melena. GENITOURINARY: He makes little urine. NEUROLOGIC: No CVA, syncope, or seizures. MUSCULOSKELETAL: No history of chronic joint pain. PHYSICAL EXAMINATION: GENERAL: The patient at the time of my exam, is no longer in distress. He was on BiPAP earlier. VITAL SIGNS: Temperature 98, pulse 100, blood pressure 166/91, O2 saturation is 96%. HEAD EYES, EARS, NOSE, AND THROAT: Sclerae are nonicteric. Ocular motions intact in all directions. Oral mucosa moist. He has dentures. NECK: No adenopathy. LUNGS: Clear on my exam. He has a dry cough. HEART: Rhythm is regular with 1-2/6 systolic ejection murmur and apical S4. ABDOMEN: Soft without organomegaly or masses. EXTREMITIES: No edema, cyanosis, or clubbing. There is a large tortuous AV fistula in the left arm. NEUROLOGIC: He is alert and oriented. Cranial nerves are intact. PERTINENT LABORATORY DATA: White count 32833, hemoglobin 11. Admission sodium 140, potassium 5.8, BUN 63, creatinine is 10.6. Troponin 0.037 [place] 0[place] [address]. Albumin 3.7. Chest x-ray showed bilateral perihilar infiltrates. IMPRESSION: 1. Congestive heart failure, acute on chronic with diastolic dysfunction. 2. History of pulmonary hypertension. 3. Concern for occult tuberculosis although prior studies have been negative, concern for bacterial infection as well. 4. Hemoptysis. 5. Elevated blood pressure. 6. History of schizoaffective. 7. History of gastritis. 8. Elevated troponin possibly an ischemic heart disease versus a false positive due to his end-stage renal disease. PLAN: 1. The patient be watched on telemetry bed. 2. Serial dialysis for fluid removal. 3. Followup chest x-ray and per pulmonary recommendations evaluation for possible occult diverticulosis. Matt Chaney M.D. DR: Lauren JOB#: [id number] CC:
--- NOTE | 2019-01-03 17:25 | NUR ---
CASE MANAGEMENT: INITIAL REVIEW 58 YO M ZENAIDA FROM HOME CC: URI PMHx: HTN. ASTHMA. RENAL DX. HD. SI:SOB. CHF. T 99 HR 92 RR 18 B/P 136/82 SATS 99% ON RA WBC 12 K 5.8 BUN 63 CR 10.6 GLU 194 LACTIC ACID 2.7 BNP >35k IS: DUO NEB HHN X2 NITRO SL X1 TYLENOL PO X1 PATIENT ADMITTED TO [facility] 01/02/2019 @ 2154 DCP: PATIENT TO BE DISCHARGED TO HOME ONCE MEDICALLY CLEARED. PLAN OF CARE: CXR Addendum: 01/04/19 at 0935 by Lynn Rodgers CM APPROVED
--- NOTE | 2019-01-03 18:45 | Consultation ---
DATE OF CONSULTATION: 01/02/2019 PULMONARY CONSULTATION CONSULTING PHYSICIAN: The patient was seen in the emergency room. HISTORY OF PRESENT ILLNESS: This is a 58-year-old gentleman, brought in for hemoptysis, which he stated he has been having for three days, copious amounts of bright red blood was expectorated from the patient. He also missed his dialysis and was here for urgent dialysis. Denies any chest pain, nausea, vomiting. Unclear if he has had any fever, chills, or night sweats. Denies sick contacts. No history of tuberculosis. PAST MEDICAL HISTORY: Include renal failure, hypertension, and asthma. SOCIAL HISTORY: Negative for tobacco, alcohol, and drugs. He lived in [facility] since he was 18 years old. ALLERGIES: He has multiple allergies to foods, which are noted in the medical record. MEDICATIONS: Pre-hospital medications were reviewed, reconciled, and documented in the electronic medical record by dose, frequency, and route. PHYSICAL EXAMINATION: GENERAL: At the time of my exam, he is again seen in the emergency room, is in no acute respiratory distress. VITAL SIGNS: Afebrile. Pulse is 99, blood pressure 170/92, he is 97% on 2 L. HEENT: Normocephalic, atraumatic. Oropharynx is moist. Coughing up significant bright red blood. LUNGS: With bilateral rhonchi. HEART: Regular rate and rhythm without murmur. ABDOMEN: Soft, nontender. Positive bowel sounds. EXTREMITIES: With trace lower extremity edema. Fistula in the left upper extremity is noted. NEUROLOGIC: No focal neurologic deficits. LABORATORY AND DIAGNOSTIC DATA: His white count was 12.0, hemoglobin 11.0, and platelets were 90. Sodium 140, potassium 5.8, chloride 102, bicarb 27, BUN 62, creatinine 10, glucose is 194. Lactic acid initially 2.7 down to 0.6. elevated at 3500. Troponin was unremarkable at 0.037. A chest x-ray was performed showing miliary pattern with nodular infiltrates diffusely with airspace opacities and pulmonary edema, worse than prior study one month ago. ASSESSMENT AND PLAN: Abnormal chest x-ray, hemoptysis, renal failure on dialysis, hypertension. The patient needs to be ruled out for tuberculosis as the quantity and amount of blood seemed out of proportion for normal episodes of pulmonary edema. Negative I's and O's with . Bloody urine and sputum culture, DVT prophylaxis, aspiration precautions, supplemental oxygen and nebulizers have been ordered. We will continue to follow the patient for remainder of his hospital stay. The patient will remain in the emergency room, be transferred to the floor when a bed is available. Adeola Muller D.O. DR: JONATHAN JOB#: [id number] CC:
--- NOTE | 2019-01-03 19:23 | NUR ---
HAND-OFF: Report given to IDA Myers. Patient in stable condition, having dialysis. Family at bedside.
--- NOTE | 2019-01-03 19:30 | NUR ---
NURSE NOTES: patient received. patient in no acute distress at this time. patient complains of no pain at this time. patient ambulatory and has steady gait. Patient IV intact patent and asymptomatic. patient currently being dialyzed. patients bed in lowest position and locked call light within reach. will continue to monitor.
[2019-01-03] MEDS ORDERED: QUEtiapine 200mg tab ORAL SCH (21:00)
[2019-01-04] VITALS: BP 95/56
--- NOTE | 2019-01-04 01:45 | Progress Note ---
DATE: 01/03/2019 CARDIOLOGY PROGRESS NOTE SUBJECTIVE: The patient has less congestion and cough today. Still with some hemoptysis. He had hemodialysis with ultrafiltration. Blood pressure has improved today. OBJECTIVE: VITAL SIGNS: Blood pressure 132/76, pulse 85, respiratory rate 18, and oxygen saturation on 2 L is 97%. LUNGS: Rhonchi and few rales. HEART: Regular rhythm and rate. Normal S1 and S2 with a fourth heart sound. ABDOMEN: Soft. Palpable bruit over fistula. EXTREMITIES: No edema. LABORATORY DATA: Troponin has increased to 0.123. Lactic acid now normalized. IMPRESSION: 1. Malignant range hypertension. 2. Acute myocardial ischemia. 3. End-stage renal disease. 4. Acute on chronic diastolic congestive heart failure. 5. Possible atypical pulmonary infection per geothermal operations manager, tuberculosis is the consideration. PLAN: 1. Hemodialysis with ultrafiltration. 2. Titration of antihypertensives. 3. Followup troponin level. 4. Sputum studies per pulmonology. Harrison Miller M.D. DR: WILL JOB#: [id number] CC:
[2019-01-04] MEDS: Albuterol/Ipratropium 3ml neb HHN SCH ×6 (03:58→22:06)
[2019-01-04 04:00] VITALS: BP 110/68
[2019-01-04] MEDS: HydrALAZINE 50mg tab ORAL SCH ×3 (06:08→18:10)
[2019-01-04] MEDS: Nitroglycerin 2% oint pkt TOPIC SCH ×3 (06:08→18:09)
--- NOTE | 2019-01-04 07:13 | NUR ---
HAND-OFF: Report given to IDA cole, patient stable. .
--- NOTE | 2019-01-04 07:59 | NUR ---
NURSE NOTES: Received report from IDA Myers. Patient in bed resting, no active s/s cardiac, respiratory distress noticed at this time. Patient AOx4, on 2L oxygen via NC, SR with HR 75. IV on right FA 20G, fistula on left upper arm present bruit, thrill. Endorsed HD done yesterday 01/03/19, 3L out, and need of sputum culture. Family member at bedside. Bed in lowest position, side rails upx2, call light within reach. Will continue to monitor.
[2019-01-04 08:00] VITALS: BP 100/57
[2019-01-04 08:20] LABS: HEMATOCRIT 24.7 % (42.0-52.0); HEMOGLOBIN 8.2 G/DL (14.2-18.0); MEAN CORPUSCULAR VOLUME 87 FL (80-99); PLATELET COUNT 61 K/UL (150-450); RED BLOOD COUNT 2.85 M/UL (4.70-6.10); WHITE BLOOD COUNT 3.4 K/UL (4.8-10.8)
[2019-01-04 08:38] LABS: ALANINE AMINOTRANSFERASE 17 U/L (12-78); ALBUMIN/GLOBULIN RATIO 0.8 (1.0-2.7); ALKALINE PHOSPHATASE 56 U/L (46-116); ANION GAP 8 mmol/L (5-15); ASPARTATE AMINO TRANSFERASE 14 U/L (15-37); BILIRUBIN,TOTAL 0.9 MG/DL (0.2-1.0); BLOOD UREA NITROGEN 48 mg/dL (7-18); CALCIUM 9.5 MG/DL (8.5-10.1); CARBON DIOXIDE 32 MMOL/L (21-32); CHLORIDE 100 MMOL/L (98-107); CREATININE 8.4 MG/DL (0.55-1.30); POTASSIUM 4.2 MMOL/L (3.5-5.1); SODIUM 140 MMOL/L (136-145)
[2019-01-04] MEDS: Carvedilol 25mg Tab ORAL SCH ×2 (09:00→20:57)
[2019-01-04] MEDS: Losartan 50mg tab ORAL SCH (09:00)
[2019-01-04] MEDS: cloNIDine 0.2mg Tab ORAL SCH ×2 (09:00→18:09)
[2019-01-04] MEDS: Flonase Nasal Inhaler 16gm NASAL SCH (09:34)
[2019-01-04] MEDS: Aspirin Baby 81mg ORAL SCH (09:34)
[2019-01-04] MEDS: Sensipar 30mg Tab ORAL SCH (09:35)
[2019-01-04] MEDS: Nephrovite tab (Rena-Vite) ORAL SCH (09:35)
--- NOTE | 2019-01-04 11:33 | NUR ---
NURSE NOTES: Per Dr. Calabrese, Quantiferon Gold TB blood test, called LAB to clarify name of order, per LAB, TSPOT is the name for Quantiferon Gold TB blood test. Order noted, entered, carried out. .
--- NOTE | 2019-01-04 11:58 | NUR ---
NURSE NOTES: Dr. Miller at the nursing station ,made aware troponin level 0.104. No new order given. Will continue to monitor.
[2019-01-04 12:00] VITALS: BP 124/62
--- NOTE | 2019-01-04 14:03 | NUR ---
RADIOLOGY DEPT., CHEST X-RAY COMPLETED.-P.DYE
--- NOTE | 2019-01-04 14:32 | NUR ---
CASE MANAGEMENT:REVIEW 01/04/19 SI: MALIGNANT HTN. AMI AC/CHR CHF. ESRD 99.0 79 20 124/62 96% ON 2L/NC H/H-8.2/24.7 PLT-61 BUN+48 CR+8.4 TROPONIN(+) 0.104 IS: FLONASE NASAL QD ASA PO QD NORVASC PO BID COREG PO Q12 CLONIDINE PO BID COZAAR PO QD HYDRALAZINE PO Q6HRS DUONEB HHN Q4HRS RTC : TELEMETRY STATUS DCP: FROM HOME
[2019-01-04 16:00] VITALS: BP 142/80
--- NOTE | 2019-01-04 16:26 | Nephrology Progress Note ---
Assessment/Plan Problem List: (1) ESRD on dialysis (2) Pulmonary edema (3) Hemoptysis (4) Bronchitis Plan prior ppd neg 2014, still hemoptysis, d/w pulm, repeat cxr, sputums hhn HD Subjective Constitutional: Reports: weakness HEENT: Reports: no symptoms Genitourinary: Reports: no symptoms Neurologic/Psychiatric: Reports: no symptoms Subjective still cough bloody sputum Objective Objective Last 24 Hour Vital Signs Date Time Temp Pulse Resp B/P (MAP) Pulse Ox O2 Delivery O2 Flow Rate FiO2 01/04/19 15:00 Nasal Cannula 2.0 28 01/04/19 15:00 Nasal Cannula 2.0 28 01/04/19 12:58 124/62 01/04/19 12:57 124/62 01/04/19 12:00 99.0 79 20 124/62 (82) 96 01/04/19 12:00 10.0 40 01/04/19 12:00 77 01/04/19 10:32 Nasal Cannula 2.0 28 01/04/19 10:32 Nasal Cannula 2.0 28 01/04/19 09:00 Nasal Cannula 2.0 01/04/19 09:00 100/57 01/04/19 09:00 100/57 01/04/19 09:00 80 100/57 01/04/19 09:00 80 100/57 01/04/19 08:00 10.0 40 01/04/19 08:00 80 01/04/19 08:00 99.0 80 20 100/57 (71) 97 01/04/19 07:21 Nasal Cannula 2.0 28 01/04/19 07:21 Nasal Cannula 2.0 28 01/04/19 06:08 110/68 01/04/19 06:08 110/68 01/04/19 04:08 75 20 98 Nasal Cannula 2.0 28 01/04/19 04:00 10.0 40 01/04/19 04:00 79 01/04/19 04:00 81 20 110/68 (82) 95 01/04/19 03:58 89 20 84 Room Air 2.0 28 01/04/19 00:00 97.5 80 18 95/56 (69) 96 01/04/19 00:00 82 01/04/19 00:00 10.0 40 01/03/19 23:52 143/77 01/03/19 23:52 78 20 98 Nasal Cannula 2.0 01/03/19 23:42 86 20 84 Room Air 2.0 01/03/19 22:11 68 143/77 01/03/19 21:00 Nasal Cannula 2.0 01/03/19 20:18 75 20 99 Nasal Cannula 2.0 01/03/19 20:13 82 20 97 Nasal Cannula 2.0 01/03/19 20:00 77 01/03/19 20:00 72 143/ (99) Intake and Output 01/03/19 01/04/19 19:00 07:00 Intake Total 360 ml 120 ml Balance 360 ml 120 ml Intake Oral 360 ml 120 ml # Voids 1 1 # Bowel Movements 1 1 Laboratory Tests 01/04/19 07:44: White Blood Count 3.4L, Red Blood Count 2.85L, Hemoglobin 8.2L, Hematocrit 24.7L , Mean Corpuscular Volume 87, Mean Corpuscular Hemoglobin 28.7, Mean Corpuscular Hemoglobin Concent 33.0, Red Cell Distribution Width 15.0H, Platelet Count 61L, Mean Platelet Volume 5.4L, Neutrophils (%) (Auto) , Lymphocytes (%) (Auto) , Monocytes (%) (Auto) , Eosinophils (%) (Auto) , Basophils (%) (Auto) , Differential Total Cells Counted 100, Neutrophils % ( Manual) 59, Lymphocytes % (Manual) 24, Monocytes % (Manual) 9, Eosinophils % ( Manual) 7H, Basophils % (Manual) 1, Band Neutrophils 0, Platelet Estimate DecreasedL, Platelet Morphology Normal, Hypochromasia 2+, Anisocytosis 1+, Sodium Level 140, Potassium Level 4.2, Chloride Level 100, Carbon Dioxide Level 32, Anion Gap 8, Blood Urea Nitrogen 48H, Creatinine 8.4H, Estimat Glomerular Filtration Rate 6.6, Glucose Level 136H, Calcium Level 9.5, Total Bilirubin 0.9 , Aspartate Amino Transf (AST/SGOT) 14L, Alanine Aminotransferase (ALT/SGPT) 17 , Alkaline Phosphatase 56, Troponin I 0.104H, Total Protein 7.0, Albumin 3.0L, Globulin 4.0, Albumin/Globulin Ratio 0.8L Height (Feet): 5 Height (Inches): 7.00 Weight (Pounds): 125 General Appearance: no apparent distress EENT: normal ENT inspection Neck: normal alignment Cardiovascular: normal rate, regular rhythm Respiratory/Chest: rhonchi - bilaterally Abdomen: non tender, soft Extremities: other - no edema Neurologic: occupational medicine physician II-XII grossly normal Matt Chaney MD Jan 04, 2019 16:26
[2019-01-04] MEDS ORDERED: Azithromycin 250mg tab ORAL SCH (16:30)
--- NOTE | 2019-01-04 16:36 | NUR ---
NURSE NOTES: Called [facility] nephrology, tele: [phone], spoke with Candelaria and informed patient schedule for HD tomorrow, 01/05/[address] Chaney. Will continue to monitor.
--- NOTE | 2019-01-04 16:58 | Pulmonology Progress Note ---
Assessment/Plan Assessment/Plan 1. Malignant range hypertension. 2. Acute myocardial ischemia. 3. End-stage renal disease. 4. Acute on chronic diastolic congestive heart failure. 5. Pulm infiltrates with hemoptysis; possible infx vs volume overload/CHF minimal hemoptysis no fever WBC low on abx AFB neg x1 TB spot ordered cont dialysis Subjective Constitutional: Reports: no symptoms Respiratory: Reports: productive cough, hemoptysis Allergies: Coded Allergies: AVOCADO (Verified Allergy, Intermediate, 05/12/18) PEANUT (Verified Allergy, Intermediate, Rash, 05/12/18) CHEESE (Unverified Allergy, Unknown, 05/23/18) Dairy (Verified Allergy, Unknown, Rash, 05/12/18) MAYONNAISE (Verified Allergy, Unknown, rash, 05/12/18) Uncoded Allergies: PEANUTS (Allergy, Unknown, 05/23/18) Objective Last 24 Hour Vital Signs Date Time Temp Pulse Resp B/P (MAP) Pulse Ox O2 Delivery O2 Flow Rate FiO2 01/04/19 15:00 Nasal Cannula 2.0 28 01/04/19 15:00 Nasal Cannula 2.0 28 01/04/19 12:58 124/62 01/04/19 12:57 124/62 01/04/19 12:00 99.0 79 20 124/62 (82) 96 01/04/19 12:00 10.0 40 01/04/19 12:00 77 01/04/19 10:32 Nasal Cannula 2.0 28 01/04/19 10:32 Nasal Cannula 2.0 28 01/04/19 09:00 Nasal Cannula 2.0 01/04/19 09:00 100/57 01/04/19 09:00 100/57 01/04/19 09:00 80 100/57 01/04/19 09:00 80 100/57 01/04/19 08:00 10.0 40 01/04/19 08:00 80 01/04/19 08:00 99.0 80 20 100/57 (71) 97 01/04/19 07:21 Nasal Cannula 2.0 28 01/04/19 07:21 Nasal Cannula 2.0 28 01/04/19 06:08 110/68 01/04/19 06:08 110/68 01/04/19 04:08 75 20 98 Nasal Cannula 2.0 28 01/04/19 04:00 10.0 40 01/04/19 04:00 79 01/04/19 04:00 81 20 110/68 (82) 95 01/04/19 03:58 89 20 84 Room Air 2.0 28 01/04/19 00:00 97.5 80 18 95/56 (69) 96 01/04/19 00:00 82 01/04/19 00:00 10.0 40 01/03/19 23:52 143/77 01/03/19 23:52 78 20 98 Nasal Cannula 2.0 28 01/03/19 23:42 86 20 84 Room Air 2.0 28 01/03/19 22:11 68 143/77 01/03/19 21:00 Nasal Cannula 2.0 01/03/19 20:18 75 20 99 Nasal Cannula 2.0 28 01/03/19 20:13 82 20 97 Nasal Cannula 2.0 28 01/03/19 20:00 77 01/03/19 20:00 72 143/77 (99) Intake and Output 01/03/19 01/04/19 19:00 07:00 Intake Total 360 ml 120 ml Balance 360 ml 120 ml Intake Oral 360 ml 120 ml # Voids 1 1 # Bowel Movements 1 1 General Appearance: no acute distress HEENT: atraumatic Respiratory/Chest: lungs clear, decreased breath sounds Cardiovascular: normal rate Microbiology Date/Time Source Procedure Growth Status 01/02/19 14:26 Blood Blood Culture - Preliminary NO GROWTH AFTER 24 HOURS Resulted 01/02/19 14:20 Blood Blood Culture - Preliminary NO GROWTH AFTER 24 HOURS Resulted 01/02/19 17:30 Sputum AFB Specimen Processing Tissue - Final Resulted 01/02/19 17:30 Sputum Acid Fast Bacilli Smear - Final Resulted 01/02/19 17:30 Sputum Acid Fast Bacilli Culture Pending Resulted Laboratory Tests 01/04/19 07:44: White Blood Count 3.4L, Red Blood Count 2.85L, Hemoglobin 8.2L, Hematocrit 24.7L , Mean Corpuscular Volume 87, Mean Corpuscular Hemoglobin 28.7, Mean Corpuscular Hemoglobin Concent 33.0, Red Cell Distribution Width 15.0H, Platelet Count 61L, Mean Platelet Volume 5.4L, Neutrophils (%) (Auto) , Lymphocytes (%) (Auto) , Monocytes (%) (Auto) , Eosinophils (%) (Auto) , Basophils (%) (Auto) , Differential Total Cells Counted 100, Neutrophils % ( Manual) 59, Lymphocytes % (Manual) 24, Monocytes % (Manual) 9, Eosinophils % ( Manual) 7H, Basophils % (Manual) 1, Band Neutrophils 0, Platelet Estimate DecreasedL, Platelet Morphology Normal, Hypochromasia 2+, Anisocytosis 1+, Sodium Level 140, Potassium Level 4.2, Chloride Level 100, Carbon Dioxide Level 32, Anion Gap 8, Blood Urea Nitrogen 48H, Creatinine 8.4H, Estimat Glomerular Filtration Rate 6.6, Glucose Level 136H, Calcium Level 9.5, Total Bilirubin 0.9 , Aspartate Amino Transf (AST/SGOT) 14L, Alanine Aminotransferase (ALT/SGPT) 17 , Alkaline Phosphatase 56, Troponin I 0.104H, Total Protein 7.0, Albumin 3.0L, Globulin 4.0, Albumin/Globulin Ratio 0.8L Current Medications Medications (Trade) Dose Ordered Sig/Paul Route PRN Reason Start Time Stop Time Status Last Admin Dose Admin Acetaminophen (Tylenol) 650 mg Q4H PRN ORAL Mild Pain (Pain Scale 1-3) 01/02/19 14:15 02/01/19 14:14 01/03/19 23:52 Acetaminophen (Tylenol) 650 mg Q4H PRN ORAL fever (temp>100.5F) 01/02/19 14:15 02/01/19 14:14 Albuterol/ Ipratropium (Albuterol/ Ipratropium) 3 ml Q4HRT HHN 01/03/19 03:00 01/08/19 02:59 01/04/19 03:58 Amlodipine Besylate (Norvasc) 5 mg BID ORAL 01/03/19 09:00 02/02/19 08:59 01/03/19 09:39 Aspirin (ASA) 81 mg DAILY ORAL 01/03/19 09:00 02/02/19 08:59 01/04/19 09:34 Azithromycin (Zithromax) 500 mg DAILY ORAL 01/04/19 16:30 01/11/19 16:29 Carvedilol (Coreg) 25 mg EVERY 12 HOURS ORAL 01/03/19 09:00 02/02/19 08:59 01/03/19 22:11 Ceftriaxone Sodium 1 gm/ Dextrose 55 ml @ 110 mls/hr Q24H IVPB 01/04/19 17:00 01/11/19 16:59 Cinacalcet (Sensipar) 30 mg DAILY ORAL 01/03/19 09:00 02/02/19 08:59 01/04/19 09:35 Clonidine HCl (Catapres tab) 0.4 mg BID ORAL 01/03/19 09:00 02/02/19 08:59 01/03/19 09:41 Fluticasone Propionate (Flonase) 2 spray DAILY NASAL 01/03/19 11:00 02/02/19 10:59 01/04/19 09:34 Heparin Sodium (Porcine) (Heparin Sod 1000 units/ml 10ml) 500 unit ONCE PRN IV dialysis 01/05/19 16:30 01/05/19 23:59 Hydralazine HCl (Apresoline) 50 mg Q6HR ORAL 01/03/19 06:00 02/02/19 05:59 01/04/19 12:58 Loratadine (Claritin 10mg) 10 mg DAILY ORAL 01/03/19 11:00 02/02/19 10:59 01/04/19 10:25 Lorazepam (Ativan) 1 mg Q4H PRN ORAL For Anxiety 01/02/19 14:15 01/09/19 14:14 Losartan Potassium (Cozaar) 100 mg DAILY ORAL 01/03/19 09:00 02/02/19 08:59 01/03/19 09:40 Nitroglycerin (Nitro-Bid) 1 inch TID@0600,1200,1800 TOPIC 01/03/19 06:00 02/02/19 05:59 01/04/19 12:57 Nitroglycerin (Ntg) 0.4 mg Q5M PRN SL Prn Chest Pain 01/02/19 14:15 02/01/19 14:14 Pantoprazole (Protonix) 40 mg DAILY ORAL 01/03/19 09:00 02/02/19 08:59 01/04/19 09:35 Polyethylene Glycol (Miralax) 17 gm DAILYPRN PRN ORAL Constipation 01/02/19 14:15 02/01/19 14:14 Quetiapine Fumarate (SEROquel) 400 mg BEDTIME ORAL 01/03/19 21:00 02/02/19 20:59 01/03/19 22:11 Sevelamer Carbonate (Renvela) 1,600 mg THREE TIMES A DAY ORAL 01/03/19 09:00 02/02/19 08:59 01/04/19 12:57 Sodium Chloride 1,000 ml @ 500 mls/hr Q2H PRN IVLG sbp<90 during hd 01/05/19 16:26 01/05/19 23:59 Vitamin B Complex/ Vit C/Folic Acid (Nephrovite) 1 tab DAILY ORAL 01/03/19 09:00 02/02/19 08:59 01/04/19 09:35 Zolpidem Tartrate (Ambien) 5 mg DAILYPRN PRN ORAL Insomnia 01/02/19 14:15 01/09/19 14:14 Raji Calabrese MD Jan 04, 2019 16:58
[2019-01-04] MEDS ORDERED: cefTRIAXone 1 GM in D5W 55 ML IVPB SCH (17:00)
--- NOTE | 2019-01-04 18:05 | Diagnostic Imaging Report ---
Indication: Cough, dyspnea Technique: One view of the chest Comparison: 01/02/2019 Findings: Bilateral diffuse and extensive interstitial and airspace disease appears slightly less severe than on the previous study. The heart size is normal. No definite costophrenic angle blunting demonstrated. A vascular stent is seen in the left subclavian vein Impression: Bilateral interstitial and airspace disease, slightly improved over 2 days but still extensive.
--- NOTE | 2019-01-04 19:40 | NUR ---
HAND-OFF: Report given to IDA Naranjo.
--- NOTE | 2019-01-04 20:00 | NUR ---
NURSE NOTES: Patient received from Marcella PRIETO to 317-2. VSS. No SOB noted. Able to verbalize needs. PRN pain medication given for headache. Needs attended. Due meds given. In stable condition.
--- NOTE | 2019-01-04 20:28 | NUR ---
HAND-OFF: Report given to IDA Rea. Pt stable.
[2019-01-04] MEDS ORDERED: Heparin Sod 1000 units/ml 10ml IV PRN (20:30)
[2019-01-04] MEDS ORDERED: Nitroglycerin Subl 0.4mg tab SL PRN (20:35)
[2019-01-04] MEDS ORDERED: LORazepam 1mg tab ORAL PRN (20:45)
[2019-01-04] MEDS ORDERED: Zolpidem 5mg tab ORAL PRN (20:45)
[2019-01-04] MEDS ORDERED: Miralax 17gm pkt ORAL PRN (20:45)
[2019-01-04] MEDS: QUEtiapine 200mg tab ORAL SCH (20:57)
--- NOTE | 2019-01-04 22:45 | Progress Note ---
DATE: 01/04/2019 CARDIOLOGY PROGRESS NOTE SUBJECTIVE: Less hemoptysis. No fevers. Status post hemodialysis, improving blood pressure parameters. OBJECTIVE: VITAL SIGNS: Blood pressure 100/57, pulse 80, respirations 18. LUNGS: Few rales. HEART: Regular rhythm and rate. Normal S1, S2 with a fourth heart sound. ABDOMEN: Soft. EDEMA: A 1+ edema. IMPRESSION: 1. Malignant hypertension, now with low range blood pressure. 2. Myocardial ischemia, resolved. 3. End-stage renal disease, on hemodialysis. 4. Acute on chronic diastolic congestive heart failure. 5. Healthcare-acquired pneumonia with hemoptysis. PLAN: 1. Antimicrobials. 2. Respiratory hygiene. 3. Await AFB results. 4. Hemodialysis with ultrafiltration. 5. Titrate antihypertensives. 6. May need to decrease dosing in view of dropping blood pressure range. Harrison Miller M.D. DR: HORACE JOB#: [id number] CC:
[2019-01-05] VITALS: BP 110/59
[2019-01-05] MEDS: HydrALAZINE 50mg tab ORAL SCH ×4 (00:22→18:00)
[2019-01-05] MEDS: Albuterol/Ipratropium 3ml neb HHN SCH ×6 (02:08→23:08)
[2019-01-05 04:00] VITALS: BP 131/71
[2019-01-05] MEDS: Nitroglycerin 2% oint pkt TOPIC SCH ×3 (05:25→18:00)
--- NOTE | 2019-01-05 07:48 | NUR ---
NURSE NOTES: awake/alert. c/o headache. scale 5/10 in no acute distress.
[2019-01-05 08:00] VITALS: BP 108/58
[2019-01-05] MEDS: Nephrovite tab (Rena-Vite) ORAL SCH (08:48)
[2019-01-05] MEDS: Azithromycin 250mg tab ORAL SCH (08:48)
[2019-01-05] MEDS: Aspirin Baby 81mg ORAL SCH (08:49)
[2019-01-05] MEDS: Carvedilol 25mg Tab ORAL SCH ×2 (08:49→20:20)
[2019-01-05] MEDS: Sensipar 30mg Tab ORAL SCH (08:50)
[2019-01-05] MEDS: Flonase Nasal Inhaler 16gm NASAL SCH (09:00)
[2019-01-05] MEDS: Losartan 50mg tab ORAL SCH (09:00)
[2019-01-05] MEDS: cloNIDine 0.2mg Tab ORAL SCH ×2 (09:00→18:00)
--- NOTE | 2019-01-05 10:15 | NUR ---
CHARGE NURSE NOTES: Called microbiology, spoke w/ Nori regarding the sputum AFB specimen. Per [facility], they have 2 sputum AFB specimen, missing 1 more specime- RN Katie made aware to collect one today.
[2019-01-05 12:00] VITALS: BP 119/75
--- NOTE | 2019-01-05 12:00 | NUR ---
RD ASSESSMENT & RECOMMENDATIONS SEE CARE ACTIVITY FOR COMPLETE ASSESSMENT DAILY ESTIMATED NEEDS: Needs based on ESRD on HD, underweight 56kg 30-35 kcals/kg 7806-0505 total kcals 1.2-1.8 g protein/kg 67-101 g total protein Fluid per MD, on HD NUTRITION DIAGNOSIS: Increased kcal and pro needs r/t underweight status and ESRD as evidenced by pt is 84% of [place] Body Weight w/ generalized mild to moderate wasting, pt on HD. CURRENT DIET: Low NA/ Low K PO DIET RECOMMENDATIONS: RENAL DIET + NEPRO x1 daily ADDITIONAL RECOMMENDATIONS: 1) Obtain a standing weight (EMR WT: 124# vs BED WT: 119# vs STATED WT: 131#) 2) Ad snacks BID on b/w meals 3) Add Nepro x1 daily (425 kcal/19g pro each) 4) Monitor po intake and tolerance
--- NOTE | 2019-01-05 13:13 | Pulmonology Progress Note ---
Assessment/Plan Assessment/Plan 1. Malignant range hypertension. 2. Acute myocardial ischemia. 3. End-stage renal disease. 4. Acute on chronic diastolic congestive heart failure. 5. Pulm infiltrates with hemoptysis; prob due to volume overload/CHF no hemoptysis no fever on abx AFB neg x1 TB spot pdg cont dialysis Subjective Respiratory: Denies: hemoptysis, shortness of breath Allergies: Coded Allergies: AVOCADO (Verified Allergy, Intermediate, 05/12/18) PEANUT (Verified Allergy, Intermediate, Rash, 05/12/18) CHEESE (Unverified Allergy, Unknown, 05/23/18) Dairy (Verified Allergy, Unknown, Rash, 05/12/18) MAYONNAISE (Verified Allergy, Unknown, rash, 05/12/18) Uncoded Allergies: PEANUTS (Allergy, Unknown, 05/23/18) Objective Last 24 Hour Vital Signs Date Time Temp Pulse Resp B/P (MAP) Pulse Ox O2 Delivery O2 Flow Rate FiO2 01/05/19 12:00 119/75 01/05/19 11:06 Nasal Cannula 2.0 28 01/05/19 11:06 Nasal Cannula 2.0 28 01/05/19 09:00 Nasal Cannula 2.0 01/05/19 08:49 79 108/58 01/05/19 08:00 10.0 40 01/05/19 08:00 98.5 79 17 108/58 (75) 96 01/05/19 06:46 70 18 98 Nasal Cannula 2.0 28 01/05/19 06:45 Nasal Cannula 2.0 28 01/05/19 06:45 Nasal Cannula 2.0 28 01/05/19 05:25 131/71 01/05/19 04:00 10.0 40 01/05/19 04:00 98.1 77 16 131/71 (91) 93 01/05/19 02:10 Nasal Cannula 2.0 28 01/05/19 02:09 Nasal Cannula 01/05/19 00:22 142/80 01/05/19 00:00 98.8 79 16 110/59 (76) 92 01/04/19 22:07 Nasal Cannula 2.0 28 01/04/19 22:07 Nasal Cannula 2.0 28 01/04/19 21:00 Nasal Cannula 2.0 01/04/19 20:57 72 142/80 01/04/19 20:00 10.0 40 01/04/19 18:53 72 16 97 Nasal Cannula 2.0 28 01/04/19 18:52 Nasal Cannula 2.0 28 01/04/19 18:52 Nasal Cannula 2.0 28 01/04/19 18:10 142/80 01/04/19 18:10 82 142/80 01/04/19 18:09 142/80 01/04/19 18:09 142/80 01/04/19 16:00 10.0 40 01/04/19 16:00 97.7 82 20 142/80 (100) 94 01/04/19 16:00 83 01/04/19 15:00 Nasal Cannula 2.0 28 01/04/19 15:00 Nasal Cannula 2.0 28 Intake and Output 01/04/19 01/05/19 19:00 07:00 Intake Total 420 ml 300 ml Balance 420 ml 300 ml Intake Oral 420 ml 300 ml # Voids 1 # Bowel Movements 1 General Appearance: no acute distress Respiratory/Chest: lungs clear, decreased breath sounds Cardiovascular: normal rate Microbiology Date/Time Source Procedure Growth Status 01/02/19 14:26 Blood Blood Culture - Preliminary NO GROWTH AFTER 48 HOURS Resulted 01/02/19 14:20 Blood Blood Culture - Preliminary NO GROWTH AFTER 48 HOURS Resulted 01/03/19 22:00 Sputum Expectorated Gram Stain Pending Resulted 01/03/19 22:00 Sputum Culture - Preliminary Gram Negative Bacillus 1 Usual Respiratory Naomi Resulted 01/02/19 17:30 Sputum AFB Specimen Processing Tissue - Final Resulted 01/02/19 17:30 Sputum Acid Fast Bacilli Smear - Final Resulted 01/02/19 17:30 Sputum Acid Fast Bacilli Culture Pending Resulted Laboratory Tests 01/05/19 05:25: TB Test (T-Spot) [Pending], TB Test Nil Control (T-Spot) [Pending], TB Test Panel A (T-Spot) [Pending], TB Test Panel B (T-Spot) [Pending], TB Test Positive Control (T-Spot) [Pending] Current Medications Medications (Trade) Dose Ordered Sig/Paul Route PRN Reason Start Time Stop Time Status Last Admin Dose Admin Acetaminophen (Tylenol) 650 mg Q4H PRN ORAL Mild Pain (Pain Scale 1-3) 01/04/19 21:00 02/01/19 20:59 01/05/19 00:22 Acetaminophen (Tylenol) 650 mg Q4H PRN ORAL fever (temp>100.5F) 01/04/19 21:00 02/01/19 20:59 Albuterol/ Ipratropium (Albuterol/ Ipratropium) 3 ml Q4HRT HHN 01/04/19 23:00 01/08/19 02:59 Amlodipine Besylate (Norvasc) 5 mg BID ORAL 01/05/19 09:00 02/02/19 08:59 Aspirin (ASA) 81 mg DAILY ORAL 01/05/19 09:00 02/02/19 08:59 01/05/19 08:49 Azithromycin (Zithromax) 500 mg DAILY ORAL 01/05/19 09:00 01/11/19 16:29 01/05/19 08:48 Carvedilol (Coreg) 25 mg EVERY 12 HOURS ORAL 01/04/19 21:00 02/02/19 08:59 01/05/19 08:49 Ceftriaxone Sodium 1 gm/ Dextrose 55 ml @ 110 mls/hr Q24H IVPB 01/05/19 17:00 01/11/19 16:59 Cinacalcet (Sensipar) 30 mg DAILY ORAL 01/05/19 09:00 02/02/19 08:59 01/05/19 08:50 Clonidine HCl (Catapres tab) 0.4 mg BID ORAL 01/05/19 09:00 02/02/19 08:59 Fluticasone Propionate (Flonase) 2 spray DAILY NASAL 01/05/19 09:00 02/02/19 10:59 01/05/19 09:00 Heparin Sodium (Porcine) (Heparin Sod 1000 units/ml 10ml) 500 unit ONCE PRN IV dialysis 01/04/19 20:30 01/05/19 23:59 Hydralazine HCl (Apresoline) 50 mg Q6HR ORAL 01/05/19 00:00 02/02/19 05:59 01/05/19 00:22 Loratadine (Claritin 10mg) 10 mg DAILY ORAL 01/05/19 09:00 02/02/19 10:59 01/05/19 08:48 Lorazepam (Ativan) 1 mg Q4H PRN ORAL For Anxiety 01/04/19 20:45 01/09/19 20:44 Losartan Potassium (Cozaar) 100 mg DAILY ORAL 01/05/19 09:00 02/02/19 08:59 Nitroglycerin (Nitro-Bid) 1 inch TID@0600,1200,1800 TOPIC 01/05/19 06:00 02/02/19 05:59 01/05/19 05:25 Nitroglycerin (Ntg) 0.4 mg Q5M PRN SL Prn Chest Pain 01/04/19 20:35 02/01/19 14:14 Pantoprazole (Protonix) 40 mg DAILY ORAL 01/05/19 09:00 02/02/19 08:59 01/05/19 08:49 Polyethylene Glycol (Miralax) 17 gm DAILYPRN PRN ORAL Constipation 01/04/19 20:45 02/03/19 20:44 Quetiapine Fumarate (SEROquel) 400 mg BEDTIME ORAL 01/04/19 21:00 02/02/19 20:59 01/04/19 20:57 Sevelamer Carbonate (Renvela) 1,600 mg THREE TIMES A DAY ORAL 01/05/19 09:00 02/02/19 08:59 01/05/19 13:09 Sodium Chloride 1,000 ml @ 500 mls/hr Q2H PRN IVLG sbp<90 during hd 01/05/19 16:26 01/05/19 23:59 Vitamin B Complex/ Vit C/Folic Acid (Nephrovite) 1 tab DAILY ORAL 01/05/19 09:00 02/02/19 08:59 01/05/19 08:48 Zolpidem Tartrate (Ambien) 5 mg DAILYPRN PRN ORAL Insomnia 01/04/19 20:45 01/11/19 20:44 Raji Calabrese MD Jan 05, 2019 13:13
[2019-01-05 16:00] VITALS: BP 117/75
[2019-01-05] MEDS ORDERED: Heparin Sod 1000 units/ml 10ml IV PRN (16:30)
[2019-01-05] MEDS: cefTRIAXone 1 GM in D5W 55 ML IVPB SCH (17:24)
--- NOTE | 2019-01-05 19:00 | NUR ---
NURSE NOTES: DIALYSIS COMPLETED. PT IN STABLE CONDITION. IN NO DISTRESS.
--- NOTE | 2019-01-05 19:15 | Nephrology Progress Note ---
Assessment/Plan Problem List: (1) ESRD on dialysis (2) Pulmonary edema (3) Hemoptysis (4) Bronchitis Plan prior ppd neg 2015, still hemoptysis, d/w pulm, repeat cxr, sputums hhn HD , afb ;negx2, dialysis today with fluid removal, bp lower, reduce meds Subjective Constitutional: Reports: weakness HEENT: Reports: no symptoms Genitourinary: Reports: no symptoms Neurologic/Psychiatric: Reports: no symptoms Subjective still cough bloody sputum Objective Objective Last 24 Hour Vital Signs Date Time Temp Pulse Resp B/P (MAP) Pulse Ox O2 Delivery O2 Flow Rate FiO2 01/05/19 14:44 Nasal Cannula 2.0 28 01/05/19 14:44 Nasal Cannula 2.0 28 01/05/19 12:00 98.7 74 17 119/75 (90) 96 01/05/19 12:00 119/75 01/05/19 12:00 119/75 01/05/19 12:00 10.0 40 01/05/19 11:06 Nasal Cannula 2.0 28 01/05/19 11:06 Nasal Cannula 2.0 28 01/05/19 09:00 Nasal Cannula 2.0 01/05/19 09:00 108/58 01/05/19 09:00 108/58 01/05/19 09:00 79 108/58 01/05/19 08:49 79 108/58 01/05/19 08:00 10.0 40 01/05/19 08:00 98.5 79 17 108/58 (75) 96 01/05/19 06:46 70 18 98 Nasal Cannula 2.0 28 01/05/19 06:45 Nasal Cannula 2.0 28 01/05/19 06:45 Nasal Cannula 2.0 28 01/05/19 05:25 131/71 01/05/19 04:00 10.0 40 01/05/19 04:00 98.1 77 16 131/71 (91) 93 01/05/19 02:10 Nasal Cannula 2.0 28 01/05/19 02:09 Nasal Cannula 01/05/19 00:22 142/80 01/05/19 00:00 98.8 79 16 110/59 (76) 92 01/04/19 22:07 Nasal Cannula 2.0 28 01/04/19 22:07 Nasal Cannula 2.0 28 01/04/19 21:00 Nasal Cannula 2.0 01/04/19 20:57 72 142/80 01/04/19 20:00 10.0 40 Intake and Output 01/04/19 01/05/19 19:00 07:00 Intake Total 420 ml 300 ml Balance 420 ml 300 ml Intake Oral 420 ml 300 ml # Voids 1 # Bowel Movements 1 Laboratory Tests 01/05/19 05:25: TB Test (T-Spot) [Pending], TB Test Nil Control (T-Spot) [Pending], TB Test Panel A (T-Spot) [Pending], TB Test Panel B (T-Spot) [Pending], TB Test Positive Control (T-Spot) [Pending] Height (Feet): 5 Height (Inches): 7.00 Weight (Pounds): 124 General Appearance: no apparent distress, alert EENT: normal ENT inspection Neck: normal alignment Cardiovascular: normal rate, regular rhythm Respiratory/Chest: rhonchi - bilaterally Abdomen: non tender, soft Extremities: non-tender, other - no edema 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
--- NOTE | 2019-01-05 19:22 | NUR ---
HAND-OFF: Report given to Juve BOYD RN.
--- NOTE | 2019-01-05 19:32 | NUR ---
NURSE NOTES: Patient in bed awake and oriented. VSS. No SOB noted. No pain at this time. Dialysis done today 2L was taken out. Blood pressure medications resumed. On 2L NC. Needs attended. Call light within reach. In stable condition.
[2019-01-05 20:00] VITALS: BP 140/77
[2019-01-05] MEDS: QUEtiapine 200mg tab ORAL SCH (20:20)
[2019-01-06] VITALS: BP 116/62
[2019-01-06] MEDS: Albuterol/Ipratropium 3ml neb HHN SCH ×6 (03:00→23:08)
[2019-01-06 04:00] VITALS: BP 120/66
[2019-01-06] MEDS: Nitroglycerin 2% oint pkt TOPIC SCH ×3 (06:21→17:59)
--- NOTE | 2019-01-06 07:37 | NUR ---
NURSE NOTES: AWAKE/ALERT. NO C/O PAIN. WITH NON PRODUCTIVE.COUGH. 02 SAT RA 89%. PLACED ON 02 3L 96%.
[2019-01-06 08:00] VITALS: BP 138/82
[2019-01-06] MEDS: Flonase Nasal Inhaler 16gm NASAL SCH (08:35)
[2019-01-06] MEDS: Sensipar 30mg Tab ORAL SCH (08:37)
[2019-01-06] MEDS: Losartan 50mg tab ORAL SCH (08:37)
[2019-01-06] MEDS: Nephrovite tab (Rena-Vite) ORAL SCH (08:37)
[2019-01-06] MEDS: Aspirin Baby 81mg ORAL SCH (08:37)
[2019-01-06] MEDS: Azithromycin 250mg tab ORAL SCH (08:37)
[2019-01-06] MEDS: cloNIDine 0.2mg Tab ORAL SCH ×2 (08:38→17:58)
[2019-01-06] MEDS: Carvedilol 25mg Tab ORAL SCH ×2 (08:39→20:40)
--- NOTE | 2019-01-06 09:00 | NUR ---
NURSE NOTES: coughing productively with bloody sputum. no acute sob.o2 2l n/c.
[2019-01-06 12:00] VITALS: BP 131/80
[2019-01-06 16:00] VITALS: BP 142/81
--- NOTE | 2019-01-06 16:13 | NUR ---
CASE MANAGEMENT:REVIEW 01/06/19 SI: MALIGNANT HTN. AMI AC/CHR CHF. ESRD. R/O TB 98.1 96 19 142/81 98% ON 2L/NC IS: FLONASE NASAL QD ASA PO QD NORVASC PO BID COREG PO Q12 CLONIDINE PO BID COZAAR PO QD HYDRALAZINE PO Q6HRS DUONEB HHN Q4HRS RTC : TELEMETRY STATUS DCP: FROM HOME PLAN: F/U ON PENDING AFB'S AND TSPOT
[2019-01-06] MEDS: cefTRIAXone 1 GM in D5W 55 ML IVPB SCH (16:47)
--- NOTE | 2019-01-06 17:11 | Pulmonology Progress Note ---
Assessment/Plan Assessment/Plan 1. Malignant range hypertension. 2. Acute myocardial ischemia. 3. End-stage renal disease. 4. Acute on chronic diastolic congestive heart failure. 5. Pulm infiltrates with hemoptysis; prob due to volume overload/CHF + hemoptysis no fever on abx AFB neg x3 TB spot pdg cont dialysis d/w Dr Chaney will schedule bronch Subjective Respiratory: Reports: productive cough, hemoptysis Allergies: Coded Allergies: AVOCADO (Verified Allergy, Intermediate, 05/12/18) PEANUT (Verified Allergy, Intermediate, Rash, 05/12/18) CHEESE (Unverified Allergy, Unknown, 05/23/18) Dairy (Verified Allergy, Unknown, Rash, 05/12/18) MAYONNAISE (Verified Allergy, Unknown, rash, 05/12/18) Uncoded Allergies: PEANUTS (Allergy, Unknown, 05/23/18) Objective Last 24 Hour Vital Signs Date Time Temp Pulse Resp B/P (MAP) Pulse Ox O2 Delivery O2 Flow Rate FiO2 01/06/19 16:00 98.1 96 19 142/81 (101) 98 01/06/19 15:24 89 16 99 Nasal Cannula 2.0 01/06/19 15:17 94 18 97 Nasal Cannula 2.0 01/06/19 12:00 98.4 79 18 131/80 (97) 96 01/06/19 11:54 131/80 01/06/19 10:36 88 18 99 Nasal Cannula 2.0 01/06/19 10:30 78 16 96 Nasal Cannula 2.0 01/06/19 08:39 82 138/82 01/06/19 08:38 138/82 01/06/19 08:38 82 138/82 01/06/19 08:37 138/82 01/06/19 08:14 Nasal Cannula 2.0 01/06/19 08:00 98.6 82 17 138/82 (100) 96 01/06/19 07:59 87 18 99 Nasal Cannula 2.0 01/06/19 07:50 79 16 97 Nasal Cannula 2.0 01/06/19 07:50 79 16 97 Nasal Cannula 2.0 01/06/19 06:21 120/66 01/06/19 04:00 98.2 77 18 120/66 (84) 92 01/06/19 03:00 Nasal Cannula 2.0 28 01/06/19 03:00 Nasal Cannula 2.0 28 01/06/19 00:00 98.1 79 17 116/62 (80) 92 01/05/19 23:15 80 18 98 Nasal Cannula 2.0 28 01/05/19 23:08 78 18 98 Nasal Cannula 2.0 28 01/05/19 23:08 78 18 98 Nasal Cannula 2.0 28 01/05/19 21:00 Nasal Cannula 2.0 01/05/19 20:20 90 132/71 01/05/19 20:00 97.9 81 17 140/77 (98) 93 01/05/19 19:00 Nasal Cannula 2.0 28 01/05/19 19:00 Nasal Cannula 2.0 28 01/05/19 18:00 135/76 01/05/19 18:00 135/76 01/05/19 18:00 135/76 01/05/19 18:00 92 135/76 Intake and Output 01/05/19 01/06/19 19:00 07:00 Intake Total 955 ml 840 ml Balance 955 ml 840 ml Intake Oral 900 ml 840 ml IV Total 55 ml # Voids 2 4 General Appearance: no acute distress Respiratory/Chest: crackles/rales Cardiovascular: normal rate Microbiology Date/Time Source Procedure Growth Status 01/05/19 12:00 Sputum AFB Specimen Processing Tissue - Final Resulted 01/05/19 12:00 Sputum Acid Fast Bacilli Smear - Final Resulted 01/05/19 12:00 Sputum Acid Fast Bacilli Culture Pending Resulted 01/04/19 18:30 Sputum AFB Specimen Processing Tissue - Final Resulted 01/04/19 18:30 Sputum Acid Fast Bacilli Smear - Final Resulted 01/04/19 18:30 Sputum Acid Fast Bacilli Culture Pending Resulted 01/04/19 09:40 Sputum AFB Specimen Processing Tissue - Final Resulted 01/04/19 09:40 Sputum Acid Fast Bacilli Smear - Final Resulted 01/04/19 09:40 Sputum Acid Fast Bacilli Culture Pending Resulted 01/03/19 22:00 Sputum Expectorated Gram Stain - Final Complete 01/03/19 22:00 Sputum Culture - Final Escherichia Coli Usual Respiratory Naomi Complete Current Medications Medications (Trade) Dose Ordered Sig/Paul Route PRN Reason Start Time Stop Time Status Last Admin Dose Admin Acetaminophen (Tylenol) 650 mg Q4H PRN ORAL Mild Pain (Pain Scale 1-3) 01/04/19 21:00 02/01/19 20:59 01/05/19 00:22 Acetaminophen (Tylenol) 650 mg Q4H PRN ORAL fever (temp>100.5F) 01/04/19 21:00 02/01/19 20:59 Albuterol/ Ipratropium (Albuterol/ Ipratropium) 3 ml Q4HRT HHN 01/04/19 23:00 01/08/19 02:59 01/06/19 15:23 Amlodipine Besylate (Norvasc) 5 mg BID ORAL 01/05/19 09:00 02/02/19 08:59 01/06/19 08:38 Aspirin (ASA) 81 mg DAILY ORAL 01/05/19 09:00 02/02/19 08:59 01/06/19 08:37 Azithromycin (Zithromax) 500 mg DAILY ORAL 01/05/19 09:00 01/11/19 16:29 01/06/19 08:37 Carvedilol (Coreg) 25 mg EVERY 12 HOURS ORAL 01/04/19 21:00 02/02/19 08:59 01/06/19 08:39 Ceftriaxone Sodium 1 gm/ Dextrose 55 ml @ 110 mls/hr Q24H IVPB 01/05/19 17:00 01/11/19 16:59 01/06/19 16:47 Cinacalcet (Sensipar) 30 mg DAILY ORAL 01/05/19 09:00 02/02/19 08:59 01/06/19 08:37 Clonidine HCl (Catapres tab) 0.4 mg BID ORAL 01/05/19 09:00 02/02/19 08:59 01/06/19 08:38 Fluticasone Propionate (Flonase) 2 spray DAILY NASAL 01/05/19 09:00 02/02/19 10:59 01/06/19 08:35 Loratadine (Claritin 10mg) 10 mg DAILY ORAL 01/05/19 09:00 02/02/19 10:59 01/06/19 08:37 Lorazepam (Ativan) 1 mg Q4H PRN ORAL For Anxiety 01/04/19 20:45 01/09/19 20:44 Losartan Potassium (Cozaar) 100 mg DAILY ORAL 01/05/19 09:00 02/02/19 08:59 01/06/19 08:37 Nitroglycerin (Nitro-Bid) 1 inch TID@0600,1200,1800 TOPIC 01/05/19 06:00 02/02/19 05:59 01/06/19 11:54 Nitroglycerin (Ntg) 0.4 mg Q5M PRN SL Prn Chest Pain 01/04/19 20:35 02/01/19 14:14 Pantoprazole (Protonix) 40 mg DAILY ORAL 01/05/19 09:00 02/02/19 08:59 01/06/19 08:38 Polyethylene Glycol (Miralax) 17 gm DAILYPRN PRN ORAL Constipation 01/04/19 20:45 02/03/19 20:44 Quetiapine Fumarate (SEROquel) 400 mg BEDTIME ORAL 01/04/19 21:00 02/02/19 20:59 01/05/19 20:20 Sevelamer Carbonate (Renvela) 1,600 mg THREE TIMES A DAY ORAL 01/05/19 09:00 02/02/19 08:59 01/06/19 12:52 Vitamin B Complex/ Vit C/Folic Acid (Nephrovite) 1 tab DAILY ORAL 01/05/19 09:00 02/02/19 08:59 01/06/19 08:37 Zolpidem Tartrate (Ambien) 5 mg DAILYPRN PRN ORAL Insomnia 01/04/19 20:45 01/11/19 20:44 Raji Calabrese MD Jan 06, 2019 17:11
--- NOTE | 2019-01-06 17:25 | Nephrology Progress Note ---
Assessment/Plan Problem List: (1) ESRD on dialysis (2) Pulmonary edema (3) Hemoptysis (4) Bronchitis Plan prior ppd neg 2015, still hemoptysis, d/w pulm, repeat cxr, sputums hhn HD , afb ;negx3, dialysis 01/07 with fluid removal, bp lower, reduce meds, possible bronch per Dr Calabrese Subjective Constitutional: Reports: weakness Neurologic/Psychiatric: Reports: no symptoms Subjective still cough bloody sputum Objective Objective Last 24 Hour Vital Signs Date Time Temp Pulse Resp B/P (MAP) Pulse Ox O2 Delivery O2 Flow Rate FiO2 01/06/19 16:00 98.1 96 19 142/81 (101) 98 01/06/19 15:24 89 16 99 Nasal Cannula 2.0 28 01/06/19 15:17 94 18 97 Nasal Cannula 2.0 28 01/06/19 12:00 98.4 79 18 131/80 (97) 96 01/06/19 11:54 131/80 01/06/19 10:36 88 18 99 Nasal Cannula 2.0 01/06/19 10:30 78 16 96 Nasal Cannula 2.0 01/06/19 08:39 82 138/82 01/06/19 08:38 138/82 01/06/19 08:38 82 138/82 01/06/19 08:37 138/82 01/06/19 08:14 Nasal Cannula 2.0 01/06/19 08:00 98.6 82 17 138/82 (100) 96 01/06/19 07:59 87 18 99 Nasal Cannula 2.0 01/06/19 07:50 79 16 97 Nasal Cannula 2.0 01/06/19 07:50 79 16 97 Nasal Cannula 2.0 28 01/06/19 06:21 120/66 01/06/19 04:00 98.2 77 18 120/66 (84) 92 01/06/19 03:00 Nasal Cannula 2.0 28 01/06/19 03:00 Nasal Cannula 2.0 28 01/06/19 00:00 98.1 79 17 116/62 (80) 92 01/05/19 23:15 80 18 98 Nasal Cannula 2.0 28 01/05/19 23:08 78 18 98 Nasal Cannula 2.0 28 01/05/19 23:08 78 18 98 Nasal Cannula 2.0 28 01/05/19 21:00 Nasal Cannula 2.0 01/05/19 20:20 90 132/71 01/05/19 20:00 97.9 81 17 140/77 (98) 93 01/05/19 19:00 Nasal Cannula 2.0 28 01/05/19 19:00 Nasal Cannula 2.0 28 01/05/19 18:00 135/76 01/05/19 18:00 135/76 01/05/19 18:00 135/76 01/05/19 18:00 92 135/76 Intake and Output 01/05/19 01/06/19 19:00 07:00 Intake Total 955 ml 840 ml Balance 955 ml 840 ml Intake Oral 900 ml 840 ml IV Total 55 ml # Voids 2 4 Height (Feet): 5 Height (Inches): 7.00 Weight (Pounds): 124 General Appearance: no apparent distress, alert EENT: normal ENT inspection Neck: supple Cardiovascular: regular rhythm Respiratory/Chest: lungs clear Abdomen: soft, no organomegaly Extremities: other - no edema 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
[2019-01-06] MEDS ORDERED: Tubing IV Secondary IV ONE (17:46)
--- NOTE | 2019-01-06 18:58 | NUR ---
NURSE NOTES: quiet in bed, in no apparent distress.
--- NOTE | 2019-01-06 19:37 | NUR ---
HAND-OFF: Report given to Juve HAUSER RN.
[2019-01-06 20:00] VITALS: BP_SYST 105; BP_SYST 137; BP_DIAS 61; BP_DIAS 84
--- NOTE | 2019-01-06 20:30 | NUR ---
Received a report from IDA Wilson. Pt is awake and alert. Breathing is even and non labored. No acute distress noted. No pain noted. Lung sound is clear. No hemoptysis noted. Encourage to oral hydration as tolerated for occurring phlegm. No chest pain noted. Nitroglycerin patch on left chest area. Skin intact. On isolation for airborne precaution. Leave call light within reach. Bed is locked and lowest position. Will continue to monitor.
[2019-01-06] MEDS: QUEtiapine 200mg tab ORAL SCH (20:40)
[2019-01-07] VITALS: BP 116/70
[2019-01-07] MEDS: Albuterol/Ipratropium 3ml neb HHN SCH ×6 (03:00→23:37)
--- NOTE | 2019-01-07 04:30 | Progress Note ---
DATE: 01/06/2019 CARDIOLOGY PROGRESS NOTE SUBJECTIVE: Status unchanged. AFB now negative x3. Hemoptysis is present, but slightly decreased. Afebrile. No shortness of breath. OBJECTIVE: VITAL SIGNS: Blood pressure 142/81, heart rate 96, and respirations 19. Monitored rhythm, sinus. LUNGS: Few rhonchi. HEART: Regular rhythm and rate. Normal S1, S2. A 1/6 systolic murmur at apex. ABDOMEN: Soft. EXTREMITIES: Without edema. Palpable bruit over AV fistula. IMPRESSION: 1. Acute on chronic diastolic congestive heart failure, improved. 2. Malignant hypertension, resolved. 3. End-stage renal disease. On serial hemodialysis. 4. Myocardial ischemia, recovered. 5. Pulmonary infiltrates possibly due to pneumonia and/or edema. 6. No signs of tuberculosis. PLAN: 1. Continue hemodialysis and ultrafiltration. 2. Pulmonary scheduling for bronchoscopy for diagnostic workup. 3. Maintain current antihypertensives with hold parameters for low range of blood pressure that may occur following hemodialysis. Harrison Miller M.D. DR: MARY ELLEN JOB#: [id number] CC:
--- NOTE | 2019-01-07 04:45 | Progress Note ---
DATE: 01/05/2019 CARDIOLOGY PROGRESS NOTE 01/05/2019 LATE ENTRY SUBJECTIVE: The patient is still with hemoptysis. AFB negative. Shortness of breath and blood pressure significantly improved with serial dialysis and ultrafiltration. OBJECTIVE: VITAL SIGNS: Blood pressure 119/75, pulse 74, respiratory rate 17, afebrile, and oxygen saturation on 2 liters 96%. NECK: Jugular venous pressure less elevated. LUNGS: With few rales. CARDIAC: Regular rhythm and rate. Normal S1 and S2 with a fourth heart sound. EXTREMITIES: With no edema. IMPRESSION: 1. End-stage renal disease, acute on chronic diastolic congestive heart failure, now improving. 2. Malignant hypertension, resolved. 3. Hypertensive heart disease with controlled blood pressure. 4. Recurring hemoptysis due to bronchitis, ruling out AFB. PLAN: 1. Continue current cardiovascular regimen. 2. Hold parameters for medications as blood pressure should not drop more precipitously post dialysis. 3. Await AFB study x3. 4. Respiratory hygiene. Harrison Miller M.D. DR: CAMI JOB#: [id number] CC:
[2019-01-07 05:30] VITALS: BP 112/58
[2019-01-07] MEDS: Nitroglycerin 2% oint pkt TOPIC SCH ×3 (05:36→19:21)
[2019-01-07 06:16] LABS: EOSINOPHILS % (AUTO) 10.7 % (0.0-3.0); LYMPHOCYTES % (AUTO) 25.6 % (20.0-45.0); MEAN CORPUSCULAR VOLUME 87 FL (80-99); MONOCYTES % (AUTO) 8.4 % (1.0-10.0); NEUTROPHILS % (AUTO) 54.3 % (45.0-75.0); PLATELET COUNT 102 K/UL (150-450); RED BLOOD COUNT 2.77 M/UL (4.70-6.10); RED CELL DISTRIBUTION WIDTH 14.5 % (11.6-14.8); WHITE BLOOD COUNT 4.5 K/UL (4.8-10.8)
[2019-01-07 06:30] LABS: INR 1.1 (0.9-1.1)
[2019-01-07 06:34] LABS: ANION GAP 10 mmol/L (5-15); BLOOD UREA NITROGEN 86 mg/dL (7-18); CALCIUM 9.3 MG/DL (8.5-10.1); CARBON DIOXIDE 30 MMOL/L (21-32); CHLORIDE 98 MMOL/L (98-107); CREATININE 11.3 MG/DL (0.55-1.30); POTASSIUM 5.7 MMOL/L (3.5-5.1); SODIUM 138 MMOL/L (136-145)
--- NOTE | 2019-01-07 06:50 | NUR ---
NURSE NOTES: Spoke to Gabriela at [facility] Dialysis center she will let the tech know.
--- NOTE | 2019-01-07 07:25 | NUR ---
NURSE NOTES: Report received from Álvaro PRIETO, rounds made. Patient sleeping in right lateral position in bed. No distress on O2 2LNC. INDIGO AV fistula, +bruit/thrill. RFA heplock, intact. Skin warm, intact. No cough noted. Airborne precautions. Family member at bedside. Plans for dialysis today, will follow up. Call light in reach, bed in lowest position, will continue to monitor.
--- NOTE | 2019-01-07 07:35 | NUR ---
HAND-OFF: Report given to IDA Mijares. Pt in stable condition.
--- NOTE | 2019-01-07 07:53 | NUR ---
RESPIRATORY NOTE: Unable to scan the Duoneb. Had been trying 2 different scanners, still unable to scan it. Manually administered the Duoneb. Addendum: 01/07/19 at 0802 by Garrison Block Stokes RT IDA Mijares made aware. Family member at bedside.
[2019-01-07 08:00] VITALS: BP 119/70
[2019-01-07] MEDS: Carvedilol 25mg Tab ORAL SCH ×2 (09:00→20:30)
[2019-01-07] MEDS: Losartan 50mg tab ORAL SCH (09:00)
[2019-01-07] MEDS: Azithromycin 250mg tab ORAL SCH (09:00)
[2019-01-07] MEDS: Sensipar 30mg Tab ORAL SCH (09:00)
[2019-01-07] MEDS: cloNIDine 0.2mg Tab ORAL SCH ×2 (09:00→19:21)
[2019-01-07] MEDS: Nephrovite tab (Rena-Vite) ORAL SCH (09:00)
[2019-01-07] MEDS: Aspirin Baby 81mg ORAL SCH (09:00)
[2019-01-07] MEDS: Flonase Nasal Inhaler 16gm NASAL SCH (10:20)
--- NOTE | 2019-01-07 11:00 | NUR ---
NURSE NOTES: Called dialysis facility, [facility] [phone], regarding time frame for dialysis for today, message left with customer service representative, awaiting call back.
[2019-01-07 12:00] VITALS: BP 130/84
[2019-01-07 16:00] VITALS: BP 132/76
--- NOTE | 2019-01-07 16:00 | Pulmonology Progress Note ---
Assessment/Plan Assessment/Plan 1. Malignant range hypertension. 2. Acute myocardial ischemia. 3. End-stage renal disease. 4. Acute on chronic diastolic congestive heart failure. 5. Pulm infiltrates with hemoptysis; prob due to volume overload/CHF + hemoptysis, bloody mucous bronch planned AM cont dialysis d/w Felicia Gordon Subjective Respiratory: Reports: productive cough, hemoptysis Allergies: Coded Allergies: AVOCADO (Verified Allergy, Intermediate, 05/12/18) PEANUT (Verified Allergy, Intermediate, Rash, 05/12/18) CHEESE (Unverified Allergy, Unknown, 05/23/18) Dairy (Verified Allergy, Unknown, Rash, 05/12/18) MAYONNAISE (Verified Allergy, Unknown, rash, 05/12/18) Uncoded Allergies: PEANUTS (Allergy, Unknown, 05/23/18) Objective Last 24 Hour Vital Signs Date Time Temp Pulse Resp B/P (MAP) Pulse Ox O2 Delivery O2 Flow Rate FiO2 01/07/19 15:37 78 21 93 Room Air 21 01/07/19 13:02 130/84 01/07/19 12:00 98.2 83 18 130/84 (99) 99 01/07/19 11:34 87 18 99 Nasal Cannula 2.0 28 01/07/19 11:25 84 16 95 Nasal Cannula 2.0 28 01/07/19 08:03 86 16 99 Nasal Cannula 2.0 28 01/07/19 08:00 98.4 79 18 119/70 (86) 94 01/07/19 07:53 94 Nasal Cannula 2.0 28 01/07/19 07:53 86 17 94 Nasal Cannula 2.0 28 01/07/19 05:36 112/55 01/07/19 05:30 97.9 71 18 112/58 (76) 94 01/07/19 03:21 Nasal Cannula 2.0 28 01/07/19 03:20 Nasal Cannula 2.0 28 01/07/19 00:00 99.3 73 18 116/70 (85) 94 01/06/19 23:36 87 16 99 Nasal Cannula 2.0 28 01/06/19 23:08 88 18 97 Nasal Cannula 2.0 28 01/06/19 21:00 Room Air 01/06/19 20:40 75 105/61 01/06/19 20:00 99.5 75 18 105/61 (76) 94 01/06/19 19:07 91 16 98 Nasal Cannula 2.0 28 01/06/19 19:00 92 18 96 Nasal Cannula 2.0 28 01/06/19 18:58 92 18 96 Nasal Cannula 2.0 28 01/06/19 17:59 142/84 01/06/19 17:58 142/94 01/06/19 17:58 96 142/84 Intake and Output 01/06/19 01/07/19 18:59 06:59 Intake Total 1405 ml 50 ml Balance 1405 ml 50 ml Intake Oral 350 ml 50 ml IV Total 55 ml Other 1000 ml # Voids 1 1 General Appearance: no acute distress HEENT: atraumatic Respiratory/Chest: decreased breath sounds Cardiovascular: normal rate Microbiology Date/Time Source Procedure Growth Status 01/05/19 12:00 Sputum AFB Specimen Processing Tissue - Final Resulted 01/05/19 12:00 Sputum Acid Fast Bacilli Smear - Final Resulted 01/05/19 12:00 Sputum Acid Fast Bacilli Culture Pending Resulted 01/04/19 18:30 Sputum AFB Specimen Processing Tissue - Final Resulted 01/04/19 18:30 Sputum Acid Fast Bacilli Smear - Final Resulted 01/04/19 18:30 Sputum Acid Fast Bacilli Culture Pending Resulted Laboratory Tests 01/07/19 05:50: White Blood Count 4.5L, Red Blood Count 2.77L, Hemoglobin 8.0L, Hematocrit 24.0L , Mean Corpuscular Volume 87, Mean Corpuscular Hemoglobin 28.8, Mean Corpuscular Hemoglobin Concent 33.2, Red Cell Distribution Width 14.5, Platelet Count 102L, Mean Platelet Volume 4.8L, Neutrophils (%) (Auto) 54.3, Lymphocytes (%) (Auto) 25.6, Monocytes (%) (Auto) 8.4, Eosinophils (%) (Auto) 10.7H, Basophils (%) (Auto) 1.0, Prothrombin Time 11.5, Prothromb Time International Ratio 1.1, Activated Partial Thromboplast Time 28, Sodium Level 138, Potassium Level 5.7H, Chloride Level 98, Carbon Dioxide Level 30, Anion Gap 10, Blood Urea Nitrogen 86H, Creatinine 11.3H, Estimat Glomerular Filtration Rate 4.7, Glucose Level 97, Calcium Level 9.3, Heparin-PF4 Antibody Screen [Pending] Current Medications Medications (Trade) Dose Ordered Sig/Paul Route PRN Reason Start Time Stop Time Status Last Admin Dose Admin Acetaminophen (Tylenol) 650 mg Q4H PRN ORAL Mild Pain (Pain Scale 1-3) 01/04/19 21:00 02/01/19 20:59 01/05/19 00:22 Acetaminophen (Tylenol) 650 mg Q4H PRN ORAL fever (temp>100.5F) 01/04/19 21:00 02/01/19 20:59 Albuterol/ Ipratropium (Albuterol/ Ipratropium) 3 ml Q4HRT HHN 01/04/19 23:00 01/08/19 02:59 01/07/19 15:36 Amlodipine Besylate (Norvasc) 5 mg BID ORAL 01/05/19 09:00 02/02/19 08:59 01/06/19 17:58 Aspirin (ASA) 81 mg DAILY ORAL 01/05/19 09:00 02/02/19 08:59 01/06/19 08:37 Azithromycin (Zithromax) 500 mg DAILY ORAL 01/05/19 09:00 01/11/19 16:29 01/06/19 08:37 Carvedilol (Coreg) 25 mg EVERY 12 HOURS ORAL 01/04/19 21:00 02/02/19 08:59 01/06/19 20:40 Ceftriaxone Sodium 1 gm/ Dextrose 55 ml @ 110 mls/hr Q24H IVPB 01/05/19 17:00 01/11/19 16:59 01/06/19 16:47 Cinacalcet (Sensipar) 30 mg DAILY ORAL 01/05/19 09:00 02/02/19 08:59 01/06/19 08:37 Clonidine HCl (Catapres tab) 0.4 mg BID ORAL 01/05/19 09:00 02/02/19 08:59 01/06/19 17:58 Fluticasone Propionate (Flonase) 2 spray DAILY NASAL 01/05/19 09:00 02/02/19 10:59 01/07/19 10:20 Heparin Sodium (Porcine) (Heparin Sod 1000 units/ml 10ml) 500 unit ONCE PRN IV dialysis 01/07/19 17:30 01/07/19 23:59 Loratadine (Claritin 10mg) 10 mg DAILY ORAL 01/05/19 09:00 02/02/19 10:59 01/06/19 08:37 Lorazepam (Ativan) 1 mg Q4H PRN ORAL For Anxiety 01/04/19 20:45 01/09/19 20:44 Losartan Potassium (Cozaar) 100 mg DAILY ORAL 01/05/19 09:00 02/02/19 08:59 01/06/19 08:37 Nitroglycerin (Nitro-Bid) 1 inch TID@0600,1200,1800 TOPIC 01/05/19 06:00 02/02/19 05:59 01/07/19 13:02 Nitroglycerin (Ntg) 0.4 mg Q5M PRN SL Prn Chest Pain 01/04/19 20:35 02/01/19 14:14 Pantoprazole (Protonix) 40 mg DAILY ORAL 01/05/19 09:00 02/02/19 08:59 01/06/19 08:38 Polyethylene Glycol (Miralax) 17 gm DAILYPRN PRN ORAL Constipation 01/04/19 20:45 02/03/19 20:44 Quetiapine Fumarate (SEROquel) 400 mg BEDTIME ORAL 01/04/19 21:00 02/02/19 20:59 01/06/19 20:40 Sevelamer Carbonate (Renvela) 1,600 mg THREE TIMES A DAY ORAL 01/05/19 09:00 02/02/19 08:59 01/06/19 17:58 Sodium Chloride 1,000 ml @ 500 mls/hr Q2H PRN IVLG sbp<90 during hd 01/07/19 17:26 01/07/19 23:59 Vitamin B Complex/ Vit C/Folic Acid (Nephrovite) 1 tab DAILY ORAL 01/05/19 09:00 02/02/19 08:59 01/06/19 08:37 Zolpidem Tartrate (Ambien) 5 mg DAILYPRN PRN ORAL Insomnia 01/04/19 20:45 01/11/19 20:44 Raji Calabrese MD Jan 07, 2019 16:00
[2019-01-07] MEDS: cefTRIAXone 1 GM in D5W 55 ML IVPB SCH (17:08)
--- NOTE | 2019-01-07 17:15 | NUR ---
NURSE NOTES: Called [facility] dialysis facility, spoke with Berna, regarding time frame for dialysis for today. Provided patient name, , patient room number, hospital name and call back number. Was told she will send someone out soon.
[2019-01-07] MEDS ORDERED: Heparin Sod 1000 units/ml 10ml IV PRN (17:30)
--- NOTE | 2019-01-07 19:30 | NUR ---
NURSE NOTES: Received report from IDA Mijares and rounds made. Received pt in bed, AOX4, denies any pain at this time, no distress noted. Dialysis access L UA with good bruitt and thrill. On O2 2 liter via nasal canula. IV R FA patent and intact. Bed in lowest position and locked, side rails up x 2, call light within reach. Family at bedside. Will continue to monitor.
--- NOTE | 2019-01-07 19:40 | NUR ---
HAND-OFF: Report given to Álvaro Clayton RN.
--- NOTE | 2019-01-07 19:45 | NUR ---
NURSE NOTES: Consent for Bronchoscopy reviewed with patient and brother, instructed on NPO after MDN, verbalized understanding, consent signed.
[2019-01-07 20:00] VITALS: BP 138/83
[2019-01-07] MEDS: QUEtiapine 200mg tab ORAL SCH (20:29)
--- NOTE | 2019-01-07 21:12 | Nephrology Progress Note ---
Assessment/Plan Problem List: (1) ESRD on dialysis (2) Pulmonary edema (3) Hemoptysis (4) Bronchitis (5) Hyperkalemia Plan prior ppd neg 2015, still hemoptysis, d/w pulm, repeat cxr, sputums hhn HD , afb ;negx3, dialysis 01/07 with fluid removal, bp lower, reduce meds, possible bronch per Dr Calabrese Subjective Constitutional: Reports: weakness HEENT: Reports: no symptoms Genitourinary: Reports: no symptoms Neurologic/Psychiatric: Reports: no symptoms Subjective still cough no distress Objective Objective Last 24 Hour Vital Signs Date Time Temp Pulse Resp B/P (MAP) Pulse Ox O2 Delivery O2 Flow Rate FiO2 01/07/19 21:00 Room Air 01/07/19 20:30 92 138/83 01/07/19 20:16 92 18 99 Room Air 21 01/07/19 20:07 98 Nasal Cannula 2.0 28 01/07/19 20:02 104 20 98 Nasal Cannula 2.0 28 01/07/19 20:00 99.0 92 16 138/83 (101) 100 01/07/19 19:21 132/76 01/07/19 19:21 132/76 01/07/19 19:21 89 132/76 01/07/19 16:00 99.1 89 18 132/76 (94) 92 01/07/19 15:45 77 20 95 Room Air 21 01/07/19 15:37 78 21 93 Room Air 21 01/07/19 13:02 130/84 01/07/19 12:00 98.2 83 18 130/84 (99) 99 01/07/19 11:34 87 18 99 Nasal Cannula 2.0 28 01/07/19 11:25 84 16 95 Nasal Cannula 2.0 28 01/07/19 09:00 Room Air 01/07/19 08:03 86 16 99 Nasal Cannula 2.0 28 01/07/19 08:00 98.4 79 18 119/70 (86) 94 01/07/19 07:53 94 Nasal Cannula 2.0 28 01/07/19 07:53 86 17 94 Nasal Cannula 2.0 28 01/07/19 05:36 112/55 01/07/19 05:30 97.9 71 18 112/58 (76) 94 6/20/19 03:21 Nasal Cannula 2.0 28 01/07/19 03:20 Nasal Cannula 2.0 28 01/07/19 00:00 99.3 73 18 116/70 (85) 94 01/06/19 23:36 87 16 99 Nasal Cannula 2.0 28 01/06/19 23:08 88 18 97 Nasal Cannula 2.0 28 Intake and Output 01/06/19 01/07/19 19:00 07:00 Intake Total 1405 ml 50 ml Balance 1405 ml 50 ml Intake Oral 350 ml 50 ml IV Total 55 ml Other 1000 ml # Voids 1 1 Laboratory Tests 01/07/19 05:50: White Blood Count 4.5L, Red Blood Count 2.77L, Hemoglobin 8.0L, Hematocrit 24.0L , Mean Corpuscular Volume 87, Mean Corpuscular Hemoglobin 28.8, Mean Corpuscular Hemoglobin Concent 33.2, Red Cell Distribution Width 14.5, Platelet Count 102L, Mean Platelet Volume 4.8L, Neutrophils (%) (Auto) 54.3, Lymphocytes (%) (Auto) 25.6, Monocytes (%) (Auto) 8.4, Eosinophils (%) (Auto) 10.7H, Basophils (%) (Auto) 1.0, Prothrombin Time 11.5, Prothromb Time International Ratio 1.1, Activated Partial Thromboplast Time 28, Sodium Level 138, Potassium Level 5.7H, Chloride Level 98, Carbon Dioxide Level 30, Anion Gap 10, Blood Urea Nitrogen 86H, Creatinine 11.3H, Estimat Glomerular Filtration Rate 4.7, Glucose Level 97, Calcium Level 9.3, Heparin-PF4 Antibody Screen [Pending] Height (Feet): 5 Height (Inches): 7.00 Weight (Pounds): 120 General Appearance: no apparent distress, alert Neck: normal alignment Cardiovascular: normal rate Respiratory/Chest: rhonchi - bilaterally Abdomen: soft, no organomegaly Extremities: other - no edema Neurologic: primary mill roller II-XII grossly normal Matt Chaney MD Jan 07, 2019 21:12
--- NOTE | 2019-01-07 21:35 | NUR ---
NURSE NOTES: Yolanda Zamarripa (nursing supervisor slashing department) called [facility] dialysis and spoke with Berna (dispatch) regarding pt need dialysis tonight. Per Yolanda, Berna will paged conductor sleeping car dialysis nurse to back.
--- NOTE | 2019-01-07 22:10 | NUR ---
NURSE NOTES: Transferred pt to room 421-2. Report given to WILLIAM Dietz. All belongings and medication given to Mirela. VSS. Pt in stable condition. No distress noted.
--- NOTE | 2019-01-07 22:30 | NUR ---
NURSE NOTES: PATIENT TRANSFERRED FROM 3 [facility] TO [facility]/ROOM 421 BED 2 IN STABLE CONDITION, PATIENT ALERT/ORIENTED X4, VERBALLY RESPONSIVE, DENIES PAIN. NO SIGNS AND SYMPTOMS OF ACUTE CARDIO RESPIRATORY DISTRESS/SHORTNESS OF BREATH, DENIES CHEST PAIN. HEMODIALYSIS SCHEDULED FOR [facility] H[facility]; LEFT FOREARM AV SHUNT, NOTED WITH AUDIBLE BRUITT/PALPABLE THRILL. ORIENTATED PATIENT TO ROOM/ENVIRONMENT. SIDE RAILS UP X3/BED IN LOWEST POSITION FOR SAFETY. CALL LIGHT WITHIN REACH. CONTINUE WITH CURRENT PLAN OF CARE. NAD.
[2019-01-08] VITALS: BP 130/72
--- NOTE | 2019-01-08 00:30 | NUR ---
NURSE NOTES: HEMODIALYSIS ONGOING VIA AV SHUNT LEFT UPPER ARM, TOLERATING WELL, NO SIGNS AND SYMPTOMS OF DISTRESS NOTED.
--- NOTE | 2019-01-08 03:45 | Progress Note ---
DATE: 01/07/2019 CARDIOLOGY PROGRESS NOTE SUBJECTIVE: The patient is still with hemoptysis. No respiratory distress. Monitored rhythm, sinus. OBJECTIVE: VITAL SIGNS: Blood pressure 130/84, heart rate 83, respiratory rate 18, and afebrile. T-max 99.3. LUNGS: Few rhonchi. HEART: Regular rhythm and rate. Normal S1 and S2 with a fourth heart sound. ABDOMEN: Soft. EXTREMITIES: No edema. IMPRESSION: 1. Acute myocardial ischemia, resolved. 2. Malignant hypertension, recovered. 3. Hypertensive heart disease, stable. 4. End-stage renal disease, on hemodialysis. PLAN: 1. Bronchoscopy planned for diagnostic purposes. 2. Hemodialysis with ultrafiltration for volume management. 3. Continue current cardiovascular regimen and titrate for optimal blood pressure control. Harrison Miller M.D. DR: VINAYAK JOB#: [id number] CC:
[2019-01-08 04:00] VITALS: BP 133/73
[2019-01-08] MEDS ORDERED: Succinylcholine 20mg/ml 10ml vial ONE (06:38)
--- NOTE | 2019-01-08 07:30 | NUR ---
HAND-OFF: Report given to WILLIAM GRANDA.
[2019-01-08] MEDS: Nitroglycerin 2% oint pkt TOPIC SCH (07:32)
--- NOTE | 2019-01-08 07:42 | NUR ---
NURSE NOTES: PATIENT REFUSED BRONCHOSCOPY, STATED 'I'M TOO TIRED, DIALYSIS WAS VERY LATE", NOTIFIED QI IN OR-DR. STEVENS AND DR. KAPADIA MADE AWARE; EXPLAINED RISK AND BENEFITS OF PROCEDURE TO PATIENT, ALSO INFORMED PATIENT THAT HE WILL BE ABLE TO SLEEP ALL DAY AFTER PROCEDURE IS COMPLETE, PATIENT VERY ADAMANTLY REFUSED ALONG WITH FAMILY APPROVAL- PER DR. KAPADIA, PATIENT TO REMAIN NPO UNTIL DR. JIANG ARRIVE, ENDORSED TO WILLIAM GRANDA.
[2019-01-08 08:00] VITALS: BP 156/90
--- NOTE | 2019-01-08 08:41 | Pulmonology Progress Note ---
Assessment/Plan Assessment/Plan 1. Malignant range hypertension. 2. Acute myocardial ischemia. 3. End-stage renal disease. 4. Acute on chronic diastolic congestive heart failure. 5. Pulm infiltrates with hemoptysis; prob due to volume overload/CHF + hemoptysis, bloody mucous bronch refused d/w Dr Chaney, [facility] Subjective Respiratory: Reports: productive cough, hemoptysis; Denies: shortness of breath Allergies: Coded Allergies: AVOCADO (Verified Allergy, Intermediate, 05/12/18) PEANUT (Verified Allergy, Intermediate, Rash, 05/12/18) CHEESE (Unverified Allergy, Unknown, 05/23/18) Dairy (Verified Allergy, Unknown, Rash, 05/12/18) MAYONNAISE (Verified Allergy, Unknown, rash, 05/12/18) Uncoded Allergies: PEANUTS (Allergy, Unknown, 05/23/18) Objective Last 24 Hour Vital Signs Date Time Temp Pulse Resp B/P (MAP) Pulse Ox O2 Delivery O2 Flow Rate FiO2 01/08/19 08:00 97.7 85 21 156/90 (112) 98 01/08/19 07:32 131/69 01/08/19 04:00 97.3 64 18 133/73 (93) 95 01/08/19 00:00 97.0 67 18 130/72 (91) 100 01/07/19 23:47 77 20 99 Room Air 21 01/07/19 23:37 86 18 98 Nasal Cannula 2.0 28 01/07/19 21:00 Room Air 01/07/19 20:30 92 138/83 01/07/19 20:16 92 18 99 Room Air 21 01/07/19 20:07 98 Nasal Cannula 2.0 28 01/07/19 20:02 104 20 98 Nasal Cannula 2.0 28 01/07/19 20:00 99.0 92 16 138/83 (101) 100 01/07/19 19:21 132/76 01/07/19 19:21 132/76 01/07/19 19:21 89 132/76 01/07/19 16:00 99.1 89 18 132/76 (94) 92 01/07/19 15:45 77 20 95 Room Air 21 01/07/19 15:37 78 21 93 Room Air 21 01/07/19 13:02 130/84 01/07/19 12:00 98.2 83 18 130/84 (99) 99 01/07/19 11:34 87 18 99 Nasal Cannula 2.0 28 01/07/19 11:25 84 16 95 Nasal Cannula 2.0 28 01/07/19 09:00 Room Air Intake and Output 01/07/19 01/08/19 19:00 07:00 Intake Total 437 ml 240 ml Balance 437 ml 240 ml Intake Oral 437 ml 240 ml # Bowel Movements 1 General Appearance: no acute distress Respiratory/Chest: lungs clear Microbiology Date/Time Source Procedure Growth Status 01/05/19 12:00 Sputum AFB Specimen Processing Tissue - Final Resulted 01/05/19 12:00 Sputum Acid Fast Bacilli Smear - Final Resulted 01/05/19 12:00 Sputum Acid Fast Bacilli Culture Pending Resulted Current Medications Medications (Trade) Dose Ordered Sig/Paul Route PRN Reason Start Time Stop Time Status Last Admin Dose Admin Acetaminophen (Tylenol) 650 mg Q4H PRN ORAL Mild Pain (Pain Scale 1-3) 01/04/19 21:00 02/01/19 20:59 01/05/19 00:22 Acetaminophen (Tylenol) 650 mg Q4H PRN ORAL fever (temp>100.5F) 01/04/19 21:00 02/01/19 20:59 Amlodipine Besylate (Norvasc) 5 mg BID ORAL 01/08/19 09:00 02/07/19 08:59 Aspirin (ASA) 81 mg DAILY ORAL 01/05/19 09:00 02/02/19 08:59 01/06/19 08:37 Azithromycin (Zithromax) 500 mg DAILY ORAL 01/05/19 09:00 01/11/19 16:29 01/06/19 08:37 Carvedilol (Coreg) 25 mg EVERY 12 HOURS ORAL 01/04/19 21:00 02/02/19 08:59 01/07/19 20:30 Ceftriaxone Sodium 1 gm/ Dextrose 55 ml @ 110 mls/hr Q24H IVPB 01/05/19 17:00 01/11/19 16:59 01/07/19 17:08 Cinacalcet (Sensipar) 30 mg DAILY ORAL 01/05/19 09:00 02/02/19 08:59 01/06/19 08:37 Clonidine HCl (Catapres tab) 0.4 mg BID ORAL 01/08/19 09:00 02/07/19 08:59 Fluticasone Propionate (Flonase) 2 spray DAILY NASAL 01/05/19 09:00 02/02/19 10:59 01/07/19 10:20 Loratadine (Claritin 10mg) 10 mg DAILY ORAL 01/05/19 09:00 02/02/19 10:59 01/06/19 08:37 Lorazepam (Ativan) 1 mg Q4H PRN ORAL For Anxiety 01/04/19 20:45 01/09/19 20:44 Losartan Potassium (Cozaar) 100 mg DAILY ORAL 01/08/19 09:00 02/07/19 08:59 Nitroglycerin (Nitro-Bid) 1 inch TID@0600,1200,1800 TOPIC 01/05/19 06:00 02/02/19 05:59 01/08/19 07:32 Nitroglycerin (Ntg) 0.4 mg Q5M PRN SL Prn Chest Pain 01/04/19 20:35 02/01/19 14:14 Pantoprazole (Protonix) 40 mg DAILY ORAL 01/05/19 09:00 02/02/19 08:59 01/06/19 08:38 Polyethylene Glycol (Miralax) 17 gm DAILYPRN PRN ORAL Constipation 01/04/19 20:45 02/03/19 20:44 Quetiapine Fumarate (SEROquel) 400 mg BEDTIME ORAL 01/04/19 21:00 02/02/19 20:59 01/07/19 20:29 Sevelamer Carbonate (Renvela) 1,600 mg THREE TIMES A DAY ORAL 01/05/19 09:00 02/02/19 08:59 01/07/19 19:20 Vitamin B Complex/ Vit C/Folic Acid (Nephrovite) 1 tab DAILY ORAL 01/05/19 09:00 02/02/19 08:59 01/06/19 08:37 Zolpidem Tartrate (Ambien) 5 mg DAILYPRN PRN ORAL Insomnia 01/04/19 20:45 01/11/19 20:44 Raji Calabrese MD Jan 08, 2019 08:41
[2019-01-08] MEDS: Sensipar 30mg Tab ORAL SCH (08:56)
[2019-01-08] MEDS: Azithromycin 250mg tab ORAL SCH (08:57)
[2019-01-08] MEDS: Carvedilol 25mg Tab ORAL SCH (08:57)
[2019-01-08] MEDS: Nephrovite tab (Rena-Vite) ORAL SCH (08:57)
[2019-01-08] MEDS: Aspirin Baby 81mg ORAL SCH (08:57)
[2019-01-08] MEDS ORDERED: Losartan 50mg tab ORAL SCH (09:00)
[2019-01-08] MEDS ORDERED: cloNIDine 0.2mg Tab ORAL SCH (09:00)
[2019-01-08] MEDS: Flonase Nasal Inhaler 16gm NASAL SCH (09:02)
--- NOTE | 2019-01-08 09:15 | Discharge Summary ---
DATE OF ADMISSION: 01/02/2019 DATE OF DISCHARGE: 01/08/2019 PERTINENT HISTORY: The patient has end-stage renal disease, on dialysis, presents with increasing shortness of breath and bilateral infiltrates consistent with pulmonary edema and/or pneumonia. He had some hemoptysis. In the emergency room, he was given BiPAP initially and subsequently taken off. PERTINENT PHYSICAL FINDINGS: LUNGS: Clear on my exam. Dry cough. HEART: Regular rhythm with a 1 to 2/6 systolic ejection murmur. ABDOMEN: Soft without organomegaly. EXTREMITIES: No edema. There is a large AV fistula in the left arm. NEUROLOGIC: He is alert and oriented. Cranial nerves are intact. COURSE IN THE HOSPITAL: The patient was given serial dialysis for fluid overload and congestive heart failure. He had hemoptysis and had 3 sputums that were negative for AFB and T-spot test was done and negative. The patient was seen by Dr. Calabrese in Pulmonary consultation. He had a gradual improvement of his cough and shortness of breath. A diagnostic bronchoscopy was scheduled, but the patient declined. On the day of discharge, his vital signs were stable. He had a mild cough. Lungs showed few faint rhonchi. No distress. Heart, regular rhythm. Abdomen, soft. Extremities, no edema. He felt better and he was discharged home in improved condition. FINAL DIAGNOSES: 1. Congestive heart failure, acute on chronic with diastolic dysfunction and pulmonary edema. 2. Acute myocardial ischemia with minimal elevation of troponin. 3. Malignant hypertension. 4. End-stage renal disease. 5. Acute bronchitis. 6. Hemoptysis. DISCHARGE DISPOSITION: Home on a renal diet. I have emphasized the importance of low salt and low fluid intake. DISCHARGE MEDICATIONS: Per the discharge medication list. FOLLOWUP: Follow up in the office in dialysis unit with Dr. Chaney. Matt Chaney M.D. DR: ANGELICA JOB#: [id number] CC:
[2019-01-08 11:58] VITALS: BP 104/62
--- NOTE | 2019-01-08 12:50 | NUR ---
NURSE NOTES: PATIENT IS FOR DISCHARGE HOME. BROTHER @ BEDSIDE, RODOLFO RUSS. HOME ADDRESS VERIFIED. PERSONAL BELONGINGS NOTED. NO ACUTE RESP DISTRESS NOTED. NO C/O PAIN/DISCOMFORT NOTED. REMOVED IV HEPLOCK. HOWEVER, PATIENT REFUSED FOR THE BRONCHOSCOPY THIS AM. EXPLAINED THE IMPORTANCE AND INDICATIONS. PER PATIENT " HE IS TIRED". KEPT BED IN THE LOWEST POSITION. SIDERAILS ARE UP X2 AND CALL LIGHT WITHIN REACH. D/C HOME WITH INSTRUCTIONS GIVEN.
--- NOTE | 2019-01-09 00:30 | Progress Note ---
DATE: 01/08/2019 CARDIOLOGY PROGRESS NOTE SUBJECTIVE: The patient still has some hemoptysis, but less congestion and cough. He refused a bronchoscopy. Cultures remain negative. OBJECTIVE: VITAL SIGNS: Blood pressure 130/72 to 156/90, heart rate 64 to 85, respiratory rate 18 to 21, and the patient is afebrile. T-max 99.1. LUNGS: Few rhonchi. CARDIAC: Regular rhythm and rate. Normal S1 and S2. There is a fourth heart sound. ABDOMEN: Soft. EXTREMITIES: Without edema. Fistula has a palpable bruit. IMPRESSION: 1. Acute myocardial ischemia due to malignant range hypertension, which has resolved. 2. Hypertensive heart disease with overall adequate blood pressure control. 3. End-stage renal disease, on hemodialysis. 4. Acute on chronic diastolic congestive heart failure. 5. Compensated pulmonary infiltrates with hemoptysis, etiology unclear, but clinically improved. PLAN: 1. Outpatient followup. 2. On current cardiovascular medication regimen and continued hemodialysis with ultrafiltration per usual schedule. 3. We will revisit bronchoscopy if clinical condition warrants in the future. Harrison Miller M.D. DR: WILL JOB#: [id number] CC:
--- NOTE | 2019-01-09 19:06 | Cardiology Report ---
APPROVED REPORT EKG Measurement Heart [id number] Normal sinus rhythm Moderate voltage criteria for LVH, may be normal variant Borderline ECG
== END 2019-01-08 12:57 | disposition home or self-care (01) | DRG 291 ==
LOC: EDBD 13:17 → EMR 14:00 → EDBEDREQSVC 14:09 → 2E 14:17 → EDBEDREQSVC 14:18 → EDBEDREQ 17:38 → EDBEDREQSVC 22:23 → EDBEDREQ 22:23 → 2E 01-03 01:38 → 3E 01-04 20:27 → 4E 01-07 22:10
PROC: 5A09357 Assistance with Respiratory Ventilation, Less than 24 Consecutive Hours, Continuous Positive Airway Pressure (ICD-10-PCS; principal; 2019-01-02)
DX: I13.2 Hypertensive heart and chronic kidney disease with heart failure and with stage 5 chronic kidney disease, or end stage renal disease (principal); N18.6 End stage renal disease; I50.33 Acute on chronic diastolic (congestive) heart failure; R04.2 Hemoptysis; E87.2 Acidosis; I51.3 Intracardiac thrombosis, not elsewhere classified; I27.20 Pulmonary hypertension, unspecified; F25.9 Schizoaffective disorder, unspecified; J20.9 Acute bronchitis, unspecified; E87.5 Hyperkalemia
CPT/HCPCS: 36415; 71045; 71250; 80048; 80053; 82550; 82553; 83605; 83880; 84484; 85007; 85025; 85610; 85730; 87040; 87070; 87116; 87181; 87205; 93005; 94640; 94664; 96365; 96375; 99291; J7620